=== PATIENT | male | born 1945 | race Caucasian/White ===

== ENCOUNTER 2020-05-15 06:09 | Outpatient (REF) | payer MEDICARE, BC, SELFPAY ==
[2020-05-15 06:54] LABS: MANUAL DIFF FLAG NO
[2020-05-15 07:13] LABS: Basophils Absolute Auto 0.1 X10*3/uL (0.0-0.2); Basophils Percent Auto 0.9 % (0-2); Eosinophils Absolute Auto 0.2 X10*3/uL (0.0-0.4); Hematocrit 41.8 % (42-52); Hemoglobin 13.7 g/dl (14.0-18.0); Imm Gran Abs Auto 0.02 X10*3/uL (0.00-0.03); Imm Gran Pct Auto 0.3 % (0.0-0.4); Lymphocytes Absolute Auto 1.8 X10*3/uL (1.2-4.9); Lymphocytes Percent Auto 23.2 % (20-40); Mean Corpuscular HGB Conc 32.8 g/dl (31.0-36.0); Mean Corpuscular Hemoglobin 28.8 pg (27.0-33.0); Mean Platelet Volume 10.7 fL (9.4-12.4); Monocytes Absolute Auto 0.7 X10*3/uL (0.1-1.2); Monocytes Percent Auto 9.5 % (2-11); Neutrophils Absolute Auto 4.8 X10*3/uL (2.0-8.3); Neutrophils Percent Auto 63.1 % (45-73); Platelet Count 315 X10*3/uL (160-400); Red Blood Count 4.75 X10*6/uL (4.60-5.80); Red Cell Distribution Width 12.6 % (11.0-16.0); White Blood Count 7.6 X10*3/uL (4.8-10.8)
[2020-05-15 07:24] LABS: Alanine Aminotransferase 15 U/L (0-40); Albumin Level 4.2 g/dL (3.5-5.0); Alkaline Phosphatase 114 U/L (39-117); Anion Gap 12 (12-20); Aspartate Amino Transferase 21 U/L (5-37); Bilirubin Total 0.5 mg/dL (0.0-1.0); Blood Urea Nitrogen 13 mg/dL (9-16); Carbon Dioxide 27 mmol/L (22-29); Chloride 106 mmol/L (96-108); Cholesterol 161 mg/dL; Estimated Glomerular Filt Rate > 60; Glucose Fasting 101 mg/dL (60-99); HDL Cholesterol 58 mg/dL; LDL Cholesterol Calculated 95 mg/dl; Potassium 4.3 mmol/l (3.3-5.1); Sodium 141 mmol/L (135-145); Total Protein 6.8 g/dL (6.5-8.0); Triglycerides 40 mg/dL
[2020-05-15 07:46] LABS: TSH reflex Free T4 1.77 mIU/mL (0.32-4.0)
[2020-05-15 07:49] LABS: Glucose Urine UA NEG (NEG); Leukocyte Esterase Urine NEG (NEG); Nitrite Urine NEG (NEG); PH 6.5 (5.0-8.0); Specific Gravity - Urine 1.015 (1.005-1.025); Urine Blood TRACE (NEG); Urine Ketones NEG (NEG); Urine Protein NEG (NEG-TRACE)
[2020-05-15 07:54] LABS: Appearance Urine CLEAR; Color Urine YELLOW
[2020-05-15 08:22] LABS: RBC Urine 0-2 /HPF (0); WBC Urine 0 /HPF (0-4)
== END 2020-05-15 06:10 | disposition home or self-care (01) ==
LOC: HO.LAB 06:09
PROVIDERS: PCP Internal Medicine; Visit Provider Internal Medicine
DX: E78.5 Hyperlipidemia, unspecified (principal); K52.9 Noninfective gastroenteritis and colitis, unspecified; D64.9 Anemia, unspecified; E66.3 Overweight; R31.1 Benign essential microscopic hematuria
CPT/HCPCS: 36415; 80053; 80061; 81001; 81003; 81015; 84443; 85025

== ENCOUNTER 2020-11-13 06:23 | Outpatient (REF) | payer MEDICARE, BC, SELFPAY ==
[2020-11-13 07:11] LABS: MANUAL DIFF FLAG NO
[2020-11-13 07:15] LABS: Basophils Absolute Auto 0.1 X10*3/uL (0.0-0.2); Basophils Percent Auto 1.1 % (0-2); Eosinophils Absolute Auto 0.3 X10*3/uL (0.0-0.4); Eosinophils Percent Auto 4.2 % (0-4); Hematocrit 44.5 % (42-52); Hemoglobin 14.7 g/dl (14.0-18.0); Imm Gran Abs Auto 0.02 X10*3/uL (0.00-0.03); Imm Gran Pct Auto 0.3 % (0.0-0.4); Lymphocytes Absolute Auto 2.2 X10*3/uL (1.2-4.9); Lymphocytes Percent Auto 29.6 % (20-40); Mean Corpuscular Hemoglobin 29.5 pg (27.0-33.0); Mean Corpuscular Volume 89.2 fL (80-98); Mean Platelet Volume 10.9 fL (9.4-12.4); Monocytes Absolute Auto 0.8 X10*3/uL (0.1-1.2); Monocytes Percent Auto 10.3 % (2-11); Neutrophils Absolute Auto 4.1 X10*3/uL (2.0-8.3); Neutrophils Percent Auto 54.5 % (45-73); Platelet Count 272 X10*3/uL (160-400); Red Blood Count 4.99 X10*6/uL (4.60-5.80); Red Cell Distribution Width 13.1 % (11.0-16.0); White Blood Count 7.6 X10*3/uL (4.8-10.8)
[2020-11-13 07:30] LABS: Glucose Urine UA NEG (NEG); Leukocyte Esterase Urine NEG (NEG); Nitrite Urine NEG (NEG); Specific Gravity - Urine 1.015 (1.005-1.025); Urine Blood NEG (NEG); Urine Ketones NEG (NEG); Urine Protein NEG (NEG-TRACE)
[2020-11-13 07:35] LABS: Appearance Urine CLEAR; Color Urine YELLOW
[2020-11-13 07:39] LABS: Alanine Aminotransferase 16 U/L (0-40); Albumin Level 4.5 g/dL (3.5-5.0); Alkaline Phosphatase 111 U/L (39-117); Anion Gap 16 (12-20); Aspartate Amino Transferase 23 U/L (5-37); Bilirubin Total 0.8 mg/dL (0.0-1.0); Blood Urea Nitrogen 17 mg/dL (9-16); Calcium 9.5 mg/dL (8.4-10.2); Carbon Dioxide 23 mmol/L (22-29); Chloride 107 mmol/L (96-108); Cholesterol 195 mg/dL; Estimated Glomerular Filt Rate > 60; Glucose Fasting 89 mg/dL (60-99); HDL Cholesterol 62 mg/dL; LDL Cholesterol Calculated 121 mg/dl; Potassium 4.5 mmol/L (3.3-5.1); Sodium 141 mmol/L (135-145); Total Protein 7.3 g/dL (6.5-8.0); Triglycerides 61 mg/dL
[2020-11-13 08:02] LABS: TSH reflex Free T4 1.35 uIU/mL (0.32-4.0)
== END 2020-11-13 06:24 | disposition home or self-care (01) ==
LOC: HO.LAB 06:23
PROVIDERS: PCP Internal Medicine; Visit Provider Internal Medicine
DX: R31.1 Benign essential microscopic hematuria (principal); D64.9 Anemia, unspecified; E78.00 Pure hypercholesterolemia, unspecified; M51.36 Other intervertebral disc degeneration, lumbar region; E66.3 Overweight
CPT/HCPCS: 36415; 80053; 80061; 81003; 84443; 85025

== ENCOUNTER 2021-04-25 09:34 | Emergency (ER) | payer MEDICARE, BC, OTHER, SELFPAY ==
--- NOTE | 2021-04-25 | ECG_ITS ---
Test Reason : NEURO SYMPTOMS Blood Pressure : / mmHG Vent. Rate : 071 BPM Atrial Rate : 071 BPM P-R Int : 200 ms QRS Dur : 078 ms QT Int : 390 ms P-R-T Axes : 043 -03 029 degrees QTc Int : 423 ms Normal sinus rhythm Normal ECG When compared with ECG of 03-AUG-2007 13:51, No significant change was found Referred By: Elyssa Calvo Electronically Signed By:TANK TRENT
--- NOTE | ~2021-04-25 | CT_ITS ---
EXAMINATION: CT angio head neck CLINICAL INFORMATION: Left facial droop. COMPARISON: CT scan of the head 01/05/2012. TECHNIQUE: City Attorney images were obtained. A CT angiogram of the head and neck was performed in the arterial phase after the intravenous administration of 50 mL Omnipaque 350. Pre and delayed postcontrast images of the head were also obtained. MIP reconstructions were generated in multiple orientations at the acquisition workstation. Multiple three-dimensional surface rendered images and maximum intensity projection images were generated on a dedicated 3-D lab workstation. Arterial stenoses are measured in accordance with NASCET criteria or similar method if applicable. This CT examination was performed using dose optimization techniques as appropriate, including one or more of the following: Automated exposure control, iterative reconstruction, and adjustment of technique factors (mA and/or kVp) according to patient size (this includes techniques or standardized protocols for targeted exams where dose is matched to indication/reason for exam). Total exam dose-length product 2508 mGy-cm FINDINGS: Head: There is no acute intracranial hemorrhage or abnormal extra-axial collection. Postcontrast images reveal no abnormal mass or enhancement within the intracranial compartment. No intracranial mass effect or midline shift. Lateral and third ventricles are normal. No hydrocephalus. There are a few scattered nonspecific foci of hypoattenuation within the periventricular white matter. Nova-white matter differentiation is preserved and there is no evidence of acute territorial infarct.. The calvarium and skull base are intact. Mastoid air cells and middle ear cavities are well aerated. No active paranasal sinus disease. Of note there are chronic changes of an old healed right lamina papyracea fracture. CT angiogram neck: Scattered atheromatous calcification involves the aortic arch apex. Origins of the major aortic branches are patent. Common carotid arteries are normal. A small amount of partially calcified atheromatous plaque involves both carotid bifurcations. No stenosis of the extracranial internal carotid arteries. The cervical segments of the vertebral arteries as well as their origins are patent. CT angiogram head: Intracranial internal carotid arteries are patent. The intradural vertebral artery segments and basilar artery are patent. Anterior, middle, and posterior cerebral artery complexes are normal. No intracranial large vessel occlusion. Other: There is heterogeneous enhancement of the thyroid gland which is otherwise normal. No identifiable enhancing soft tissue mass within the neck. No pathologically enlarged cervical lymph nodes. There is no acute osseous finding. There is multilevel degenerative spondylosis of the cervical spine. Grossly no evidence of canal compromise. No worrisome lytic or blastic osseous lesion. CT/CT angio head neck IMPRESSION: Unremarkable CT angiogram of the head and neck. Specifically there is no stenosis of the cervical carotid or vertebral arteries. No intracranial large vessel occlusion. No evidence of acute territorial infarct or hemorrhage. No abnormal intracranial mass or enhancement. This critical result was discussed with Elyssa Calvo at 11:46 AM on 04/25/2021 and it was ascertained that the content and urgency of the report was understood at the time of direct communication.
--- NOTE | ~2021-04-25 | MR_ITS ---
EXAMINATION: MR BRAIN WITHOUT CONTRAST CLINICAL INFORMATION: Left-sided facial droop. COMPARISON: CT angiogram of the head and neck 04/25/2021. TECHNIQUE: Multiplanar MR imaging of the brain was performed without contrast. FINDINGS: There are scattered nonspecific foci of T2 FLAIR signal hyperintensity within the periventricular white matter. No acute territorial infarct. No pathological magnetic susceptibility artifact. Intracranial vascular flow voids are grossly maintained. There is no intracranial mass effect or midline shift. No abnormal extra-axial collection. Lateral and third ventricles are proportionate to the subarachnoid spaces. No hydrocephalus. Midline structures including the cervicomedullary junction are normal. No acute bone marrow signal changes. There is no mastoid or middle ear effusion. Mild paranasal sinus mucosal thickening within ethmoid air cells. Globes and orbits are symmetric. MR/MR head/brain wo con IMPRESSION: There are scattered chronic small vessel ischemic changes within the periventricular white matter. Otherwise unremarkable examination. No evidence of acute territorial infarct or hemorrhage.
[2021-04-25 09:43] VITALS: BP 165/80; PULSE 82; RESP 18; TEMP 37; O2SAT 98; BMI 25.9
--- NOTE | 2021-04-25 09:54 | ED_ITS ---
HPI - Neuro Symptoms/Deficit General Chief Complaint: Neuro Symptoms/Deficit Stated Complaint: FACIAL NUMBNESS Time Seen by Provider: 04/25/21 09:51 Source: patient Mode of arrival: ambulatory Limitations: no limitations History of Present Illness HPI Narrative: 75 yo male with hx of anemia, HLD here with c/o R sided lip numbness starting yesterday 04/24 at 1am. He was last known normal at 230am today when he woke up he noted the L side of his face was drooping and he could not close his eyes, he woke up at [address]. He was told by his PCP yesterday that if he had worsening of symptoms he should seek out attention in the ED. Denies hx of shingles, lyme disease, cold sores. Onset (ago): unknown (last known normal 230am when he went to urinate) Timing confirmed by: other (self) Location: left face History of same: No Severity: moderate Quality: weak Relieving factors: none Exacerbating factors: none Context: gradual onset On Anticoagulants: No Associated symptoms: other (R lip and R lower face numbness) Treatments Prior to Arrival: other (saw PCP yesterday for R sided symptoms) Related Data Home Medications Medication Instructions Recorded Confirmed latanoprost 0.005 % eye drops 1 drp OPHTHALMIC (EYE) DAILY 05/21/20 04/25/21 (Xalatan) omega-3 fatty acids 1,000 mg 1,000 mg PO DAILY 05/21/20 04/25/21 capsule (Fish Oil Concentrate) ascorbic acid (vitamin C) 1,000 mg 1 g PO DAILY tab 11/19/20 04/25/21 tablet cholecalciferol (vitamin D3) 25 25 mcg PO .every other day cap 11/19/20 04/25/21 mcg (1,000 unit) capsule multivitamin 1 tab PO DAILY 11/19/20 04/25/21 Previous Rx's Medication Instructions Recorded atorvastatin 40 mg tablet 40 mg PO DAILY #90 tab 09/20/20 doxycycline hyclate 100 mg capsule 100 mg PO BID 7 Days #14 cap 04/25/21 prednisone 20 mg tablet 40 mg PO DAILY 5 Days #10 tab 04/25/21 valacyclovir 1 gram tablet 1,000 mg PO TID 7 Days #21 tab 04/25/21 Allergies Allergy/AdvReac Type Severity Reaction Status Date / Time No Known Allergies Allergy Mild NKA Verified 04/25/21 09:42 Review of Systems Review of Systems: Constitutional : No Fever, No Chills, No Fatigue, No Malaise ENT/Mouth : No sore throat, No Rhinorrhea Eyes: No Eye Pain, No Swelling, No Redness Cardiovascular : No Chest Pain, No SOB, No Dyspnea on Exertion, No Orthopnea, No Edema, No Palpitations Respiratory : No Cough, No Sputum, No Wheezing Gastrointestinal : No Nausea, No Vomiting, No Diarrhea, No Constipation, No abdominal Pain, No Hematochezia, No Melena Genitourinary : No Dysuria, No Urinary Frequency, No Hematuria, Musculoskeletal : No joint pain, No Myalgias, No Joint Swelling Skin : No Skin Lesions, No rash Neuro : pos Weakness, pos Numbness, No Dizziness, No Headache Psych : No Anxiety/Panic, No Depression Heme/Lymph: No Bruising, No Bleeding,No Lymphadenopathy Endocrine : No Polyuria, No Polydipsia All other systems reviewed and are negative [facility] Past Medical History Attestation statement: The following information was validated with the patient. Medical History Anemia Benign essential microscopic hematuria Glaucoma Lumbar degenerative disc disease Overweight (BMI 25.0-29.9) Pure hypercholesterolemia Surgical History History of colonoscopy History of hemicolectomy History of inguinal hernia repair History of tonsillectomy and adenoidectomy Hx of basal cell carcinoma excision (~2020) Family History Family History Father CVD (cardiovascular disease) Mother CVD (cardiovascular disease) Social History Social History Alcohol intake: never Patient Tobacco Use Status: Former Tobacco user Use of substances other than those prescribed or required for medical reasons: No Advance Directives: Yes Advance Directives Information Provided: Yes Advance Directives on File: No Physical Exam Vital Signs: Vital Signs: Last Vital Signs Temp 97.9 F 04/25/21 13:33 Pulse 73 04/25/21 13:33 Resp 14 04/25/21 13:33 BP 138/67 04/25/21 13:33 Pulse Ox 96 04/25/21 13:33 Body Mass Index 25.9 Appearance: Alert. Oriented X3. No acute distress. Eyes: Pupils equal, round and reactive to light. ENT: Pharynx normal. L TM normal Neck: Normal inspection. Neck supple. CVS: Normal heart rate and rhythm. Pulses normal. Respiratory: No respiratory distress. Breath sounds normal. Abdomen: Soft and nontender. Skin: Skin warm and dry. Normal skin color. Normal skin turgor. Extremities: No lower extremity edema. No calf ttp Neuro: Oriented X 3. No sensory deficit. normal gait, no drift. L sided facial droop involving the eyebrow and forehead unable to close eye, otherwise motor intact Course Course Course Narrative: MRI ordered to definitively establish this is bells palsy and not stroke negative MRI for acute stroke MDM - Neuro Symptoms/Deficit MDM Narrative Medical decision making narrative: 75 yo male with HLD had onset of R facial numbness yesterday then woke up around 8 am with almost complete paralysis of L face - also involving the forehead/eyebrow. Last known well at 230am. Denies risk factors for bells palsy. At this time it seems most likely this is a peripheral lesion but given age CT head/CTA ordered. He is out of the window for tPa given last known well was over 8 hours ago and he cannot say when he noted symptoms. He and his are aware of the plan as well as not being a candidate for tPa if this is a stroke Lab Data Result diagrams: 04/25/21 10:04/25/21 10:07 Labs: Lab Results 04/25/21 04/25/21 Range/Units 10:07 10:07 WBC 11.2 H (4.8-10.8) X10*3/uL RBC 4.74 (4.60-5.80) X10*6/uL Hgb 14.1 (14.0-18.0) g/dl Hct 41.7 L (42-52) % MCV 88.0 (80-98) fL MCH 29.7 (27.0-33.0) pg MCHC 33.8 (31.0-36.0) g/dl RDW 12.7 (11.0-16.0) % Plt Count 297 (160-400) X10*3/uL MPV 10.6 (9.4-12.4) fL Immature Gran % (Auto) 0.3 (0.0-0.4) % Neut % (Auto) 77.3 H (45-73) % Lymph % (Auto) 13.6 L (20-40) % [place] % (Auto) 7.2 (2-11) % Eos % (Auto) 1.0 (0-4) % Baso % (Auto) 0.6 (0-2) % Lymph # (Auto) 1.5 (1.2-4.9) X10*3/uL [place] # (Auto) 0.8 (0.1-1.2) X10*3/uL Eos # (Auto) 0.1 (0.0-0.4) X10*3/uL Baso # (Auto) 0.1 (0.0-0.2) X10*3/uL Abs Immat Gran (auto) 0.03 (0.00-0.03) X10*3/uL Absolute Neuts (auto) 8.7 H (2.0-8.3) X10*3/uL Absolute Nucleated RBC 0.000 (0.0-0.012) X10*3/uL Nucleated RBC % (auto) 0.0 (0.0-0.2) /100WBC Sodium 140 (135-145) mmol/L Potassium 4.4 (3.3-5.1) mmol/L Chloride 108 (96-108) mmol/L Carbon Dioxide 22 (22-29) mmol/L Anion Gap 14 (12-20) BUN 13 (9-16) mg/dL Creatinine 1.07 (0.5-1.4) mg/dL Estim Creat Clear Calc 60.5 Estimated GFR > 60 Random Glucose 143 H (60-115) mg/dL Calcium 9.2 (8.4-10.2) mg/dL Total Bilirubin 0.6 (0.0-1.0) mg/dL AST 23 (5-37) U/L ALT 15 (0-40) U/L Alkaline Phosphatase 122 H (39-117) U/L Total Protein 7.1 (6.5-8.0) g/dL Albumin 4.1 (3.5-5.0) g/dL ECG Data Attestation: I personally reviewed and interpreted this ECG as follows: ECG interpretation date: 04/25/21 ECG interpretation time: 10:40 Interpretation: Rate: 71 Rhythm: NSR [place]: normal Normal P waves. Normal RICARDA. Normal QRS complex. ST T wave : normal no RACHAEL qTC: normal prior studies: no acute ischemia The study has been interpreted contemporaneously by me. . NIH Stroke Scale Internal: Initial- Upon Arrival Level of Consciousness: Alert Level of Consciousness Questions: Answers both questions correctly Level of Consciousness Commands: Performs both tasks correctly Best Gaze: Normal Visual: No visual loss Facial Palsy: Partial paralysis Motor Arm (Right): No drift Motor Arm (Left): No drift Motor Leg (Right): No drift Motor Leg (Left): No drift Limb Ataxia: Absent Sensory: Normal Best Language: No aphasia Dysarthia: Normal Extinction and Inattention: No abnormality Score: 2 Discharge Plan Discharge Clinical Impression: Gruber's palsy Patient Disposition: Home, Self-Care Instructions: Gruber Palsy (ED) Additional Instructions: return to ED for any worsening symptoms or concerns protect your eye - use lubricating drops you may need to tape it at field court researcher while chewing we will call you if your lyme test is positive Prescriptions: New prednisone 20 mg tablet 40 mg PO DAILY 5 Days Qty: 10 RF: 0 valacyclovir 1 gram tablet 1,000 mg PO TID 7 Days Qty: 21 RF: 0 doxycycline hyclate 100 mg capsule 100 mg PO BID 7 Days Qty: 14 RF: 0 No Action atorvastatin 40 mg tablet 40 mg PO DAILY Qty: 90 RF: 3 omega-3 fatty acids [Fish Oil Concentrate] 1,000 mg capsule 1,000 mg PO DAILY RF: 0 latanoprost [Xalatan] 0.005 % drops 1 drp ophthalmic (eye) DAILY RF: 0 multivitamin Tablet 1 tab PO DAILY RF: 0 ascorbic acid (vitamin C) 1,000 mg tablet 1 g PO DAILY RF: 0 cholecalciferol (vitamin D3) 25 mcg (1,000 unit) capsule 25 mcg PO .every other day RF: 0 Referrals: Too Mcgee MD [Primary Care Provider] - 1 week
[2021-04-25 10:13] LABS: MANUAL DIFF FLAG NO
[2021-04-25 10:15] LABS: Basophils Absolute Auto 0.1 X10*3/uL (0.0-0.2); Basophils Percent Auto 0.6 % (0-2); Eosinophils Absolute Auto 0.1 X10*3/uL (0.0-0.4); Hematocrit 41.7 % (42-52); Hemoglobin 14.1 g/dl (14.0-18.0); Imm Gran Abs Auto 0.03 X10*3/uL (0.00-0.03); Imm Gran Pct Auto 0.3 % (0.0-0.4); Lymphocytes Absolute Auto 1.5 X10*3/uL (1.2-4.9); Lymphocytes Percent Auto 13.6 % (20-40); Mean Corpuscular HGB Conc 33.8 g/dl (31.0-36.0); Mean Corpuscular Hemoglobin 29.7 pg (27.0-33.0); Mean Platelet Volume 10.6 fL (9.4-12.4); Monocytes Absolute Auto 0.8 X10*3/uL (0.1-1.2); Monocytes Percent Auto 7.2 % (2-11); Neutrophils Absolute Auto 8.7 X10*3/uL (2.0-8.3); Neutrophils Percent Auto 77.3 % (45-73); Platelet Count 297 X10*3/uL (160-400); Red Blood Count 4.74 X10*6/uL (4.60-5.80); Red Cell Distribution Width 12.7 % (11.0-16.0); White Blood Count 11.2 X10*3/uL (4.8-10.8)
[2021-04-25 10:33] LABS: Alanine Aminotransferase 15 U/L (0-40); Albumin Level 4.1 g/dL (3.5-5.0); Alkaline Phosphatase 122 U/L (39-117); Anion Gap 14 (12-20); Aspartate Amino Transferase 23 U/L (5-37); Bilirubin Total 0.6 mg/dL (0.0-1.0); Blood Urea Nitrogen 13 mg/dL (9-16); Calcium 9.2 mg/dL (8.4-10.2); Carbon Dioxide 22 mmol/L (22-29); Chloride 108 mmol/L (96-108); Creatinine Clr Calc Pharmacy 60.5; Estimated Glomerular Filt Rate > 60; Glucose Random 143 mg/dL (60-115); Potassium 4.4 mmol/L (3.3-5.1); Sodium 140 mmol/L (135-145); Total Protein 7.1 g/dL (6.5-8.0)
[2021-04-25] MEDS: iohexoL 350 MG/ML 100 ML INFUS..BTL IV (11:30)
[2021-04-25 12:08] VITALS: BP 132/91; PULSE 72; RESP 16; O2SAT 98
[2021-04-25 13:33] VITALS: BP 138/67; PULSE 73; RESP 14; TEMP 36.6; O2SAT 96
[2021-04-26 12:56] LABS: Lyme Abs Screen <0.90 index
== END 2021-04-25 14:01 | disposition home or self-care (01) ==
PROVIDERS: Emergency Provider Emergency Medicine; PCP Internal Medicine
DX: G51.0 Bell's palsy (principal)
CPT/HCPCS: 36415; 70496; 70498; 70551; 80053; 85025; 86617; 86618; 93005; 99284; 99285; Q9967

== ENCOUNTER 2021-06-12 12:26 | Outpatient (REF) | payer MEDICARE, BC, OTHER, SELFPAY | END 2021-06-12 12:27 | disposition home or self-care (01) | LOC: HO.LAB 12:26 | PROVIDERS: Visit Provider Family Medicine | DX: L02.91 Cutaneous abscess, unspecified (principal) | CPT/HCPCS: 87071; 87205 ==

== ENCOUNTER 2021-06-18 06:06 | Outpatient (REF) | payer MEDICARE, BC, OTHER, SELFPAY ==
[2021-06-18 06:19] LABS: MANUAL DIFF FLAG NO
[2021-06-18 07:22] LABS: Basophils Absolute Auto 0.1 X10*3/uL (0.0-0.2); Basophils Percent Auto 1.2 % (0-2); Eosinophils Absolute Auto 0.3 X10*3/uL (0.0-0.4); Eosinophils Percent Auto 3.4 % (0-4); Hematocrit 40.3 % (42.0-52.0); Hemoglobin 13.1 g/dl (14.0-18.0); Imm Gran Abs Auto 0.02 X10*3/uL (0.00-0.03); Imm Gran Pct Auto 0.3 % (0.0-0.4); Lymphocytes Absolute Auto 1.8 X10*3/uL (1.2-4.9); Lymphocytes Percent Auto 25.3 % (20-40); Mean Corpuscular HGB Conc 32.5 g/dl (31.0-36.0); Mean Corpuscular Hemoglobin 29.4 pg (27.0-33.0); Mean Corpuscular Volume 90.6 fL (80.0-98.0); Mean Platelet Volume 10.3 fL (9.4-12.4); Monocytes Absolute Auto 0.6 X10*3/uL (0.1-1.2); Monocytes Percent Auto 8.5 % (2-11); Neutrophils Absolute Auto 4.5 x10*3/uL (2.0-8.3); Neutrophils Percent Auto 61.3 % (45-73); Platelet Count 348 X10*3/uL (160-400); Red Blood Count 4.45 X10*6/uL (4.60-5.80); Red Cell Distribution Width 13.2 % (11.0-16.0); White Blood Count 7.3 X10*3/uL (4.8-10.8)
[2021-06-18 07:30] LABS: Appearance Urine CLEAR; Color Urine YELLOW; Glucose Urine UA NEG (NEG); Leukocyte Esterase Urine NEG (NEG); Nitrite Urine NEG (NEG); Urine Blood NEG (NEG); Urine Ketones NEG (NEG); Urine Protein NEG (NEG-TRACE)
[2021-06-18 07:53] LABS: Alanine Aminotransferase 24 U/L (0-40); Albumin Level 4.1 g/dL (3.5-5.0); Alkaline Phosphatase 105 U/L (39-117); Anion Gap 14 (12-20); Aspartate Amino Transferase 29 U/L (5-37); Bilirubin Total 0.4 mg/dL (0.0-1.0); Blood Urea Nitrogen 17 mg/dL (9-16); Calcium 9.4 mg/dL (8.4-10.2); Carbon Dioxide 24 mmol/L (22-29); Chloride 106 mmol/L (96-108); Cholesterol 169 mg/dL; Estimated Glomerular Filt Rate 58; Glucose Fasting 85 mg/dL (60-99); HDL Cholesterol 50 mg/dL; LDL Cholesterol Calculated 107 mg/dl; Potassium 4.6 mmol/L (3.3-5.1); Sodium 139 mmol/L (135-145); Total Protein 6.8 g/dL (6.5-8.0); Triglycerides 60 mg/dL
[2021-06-18 08:15] LABS: TSH reflex Free T4 1.32 uIU/mL (0.32-4.0)
== END 2021-06-18 06:07 | disposition home or self-care (01) ==
LOC: HO.LAB 06:06
PROVIDERS: PCP Internal Medicine; Visit Provider Internal Medicine
DX: D64.9 Anemia, unspecified (principal); R31.1 Benign essential microscopic hematuria; E78.00 Pure hypercholesterolemia, unspecified; E55.9 Vitamin D deficiency, unspecified
CPT/HCPCS: 36415; 80053; 80061; 81003; 82306; 84443; 85025

== ENCOUNTER → 2021-07-11 10:46 | Outpatient (BNVA) | payer MEDICARE, BC, SELFPAY | PROVIDERS: PCP Internal Medicine; Referring Provider Internal Medicine; Visit Provider Surgery | DX: Z48.817 Encounter for surgical aftercare following surgery on the skin and subcutaneous tissue (principal); Z87.2 Personal history of diseases of the skin and subcutaneous tissue | CPT/HCPCS: 99202 ==

== ENCOUNTER 2021-11-15 06:24 | Outpatient (REF) | payer MEDICARE, BC, SELFPAY ==
[2021-11-15 06:34] LABS: MANUAL DIFF FLAG NO
[2021-11-15 07:25] LABS: Appearance Urine CLEAR; Color Urine YELLOW; Glucose Urine UA NEG (NEG); Leukocyte Esterase Urine NEG (NEG); Nitrite Urine NEG (NEG); Specific Gravity - Urine 1.015 (1.005-1.025); UACC Culture Trigger NO; Urine Blood TRACE (NEG); Urine Ketones NEG (NEG); Urine Protein NEG (NEG-TRACE)
[2021-11-15 07:33] LABS: Mucus Urine TRACE /LPF; Squamous Epithelial Cell Urine TRACE /LPF; WBC Urine 0-2 /HPF (0-4)
[2021-11-15 07:34] LABS: RBC Urine 0-2 /HPF (0)
[2021-11-15 07:34] LABS: Basophils Absolute Auto 0.1 X10*3/uL (0.0-0.2); Basophils Percent Auto 1.1 % (0-2); Eosinophils Absolute Auto 0.2 X10*3/uL (0.0-0.4); Eosinophils Percent Auto 2.9 % (0-4); Hematocrit 41.4 % (42.0-52.0); Imm Gran Abs Auto 0.03 X10*3/uL (0.00-0.03); Imm Gran Pct Auto 0.4 % (0.0-0.4); Lymphocytes Percent Auto 24.8 % (20-40); Mean Corpuscular HGB Conc 33.8 g/dl (31.0-36.0); Mean Corpuscular Hemoglobin 29.9 pg (27.0-33.0); Mean Corpuscular Volume 88.3 fL (80.0-98.0); Mean Platelet Volume 10.8 fL (9.4-12.4); Monocytes Absolute Auto 0.8 X10*3/uL (0.1-1.2); Monocytes Percent Auto 9.3 % (2-11); Neutrophils Percent Auto 61.5 % (45-73); Platelet Count 306 X10*3/uL (160-400); Red Blood Count 4.69 X10*6/uL (4.60-5.80); Red Cell Distribution Width 12.6 % (11.0-16.0); White Blood Count 8.1 X10*3/uL (4.8-10.8)
[2021-11-15 07:51] LABS: Alanine Aminotransferase 14 U/L (0-40); Albumin Level 4.2 g/dL (3.5-5.0); Alkaline Phosphatase 108 U/L (39-117); Anion Gap 13 (12-20); Aspartate Amino Transferase 21 U/L (5-37); Bilirubin Total 0.6 mg/dL (0.0-1.0); Blood Urea Nitrogen 17 mg/dL (9-16); Calcium 9.6 mg/dL (8.4-10.2); Carbon Dioxide 27 mmol/L (22-29); Chloride 105 mmol/L (96-108); Cholesterol 190 mg/dL; Estimated Glomerular Filt Rate > 60; Glucose Fasting 88 mg/dL (60-99); HDL Cholesterol 55 mg/dL; LDL Cholesterol Calculated 124 mg/dl; Potassium 4.8 mmol/L (3.3-5.1); Sodium 140 mmol/L (135-145); Triglycerides 58 mg/dL
[2021-11-15 08:10] LABS: TSH reflex Free T4 1.54 uIU/mL (0.32-4.0); Vitamin D 25-OH Total 50.5 ng/mL (>30)
== END 2021-11-15 06:25 | disposition home or self-care (01) ==
LOC: HO.LAB 06:24
PROVIDERS: PCP Internal Medicine; Visit Provider Internal Medicine
DX: I10 Essential (primary) hypertension (principal); E55.9 Vitamin D deficiency, unspecified; E78.00 Pure hypercholesterolemia, unspecified
CPT/HCPCS: 36415; 80053; 80061; 81001; 82306; 84443; 85025

== ENCOUNTER 2022-05-09 06:41 | Outpatient (REF) | payer MEDICARE, BC, SELFPAY ==
[2022-05-09 06:45] LABS: MANUAL DIFF FLAG NO
[2022-05-09 07:27] LABS: Urine Cytology See Pathology rpt
[2022-05-09 07:44] LABS: Basophils Absolute Auto 0.1 X10*3/uL (0.0-0.2); Basophils Percent Auto 1.2 % (0-2); Eosinophils Absolute Auto 0.2 X10*3/uL (0.0-0.4); Eosinophils Percent Auto 3.2 % (0-4); Hematocrit 43.1 % (42.0-52.0); Hemoglobin 14.3 g/dl (14.0-18.0); Imm Gran Abs Auto 0.02 X10*3/uL (0.00-0.03); Imm Gran Pct Auto 0.3 % (0.0-0.4); Lymphocytes Absolute Auto 2.1 X10*3/uL (1.2-4.9); Lymphocytes Percent Auto 28.6 % (20-40); Mean Corpuscular HGB Conc 33.2 g/dl (31.0-36.0); Mean Corpuscular Hemoglobin 29.2 pg (27.0-33.0); Mean Corpuscular Volume 88.1 fL (80.0-98.0); Mean Platelet Volume 10.6 fL (9.4-12.4); Monocytes Absolute Auto 0.7 X10*3/uL (0.1-1.2); Monocytes Percent Auto 9.5 % (2-11); Neutrophils Absolute Auto 4.3 x10*3/uL (2.0-8.3); Neutrophils Percent Auto 57.2 % (45-73); Platelet Count 302 X10*3/uL (160-400); Red Blood Count 4.89 X10*6/uL (4.60-5.80); Red Cell Distribution Width 12.8 % (11.0-16.0); White Blood Count 7.5 X10*3/uL (4.8-10.8)
[2022-05-09 08:13] LABS: Alanine Aminotransferase 19 U/L (0-40); Albumin Level 4.3 g/dL (3.5-5.0); Alkaline Phosphatase 104 U/L (39-117); Anion Gap 15 (12-20); Aspartate Amino Transferase 26 U/L (5-37); Bilirubin Total 0.6 mg/dL (0.0-1.0); Blood Urea Nitrogen 15 mg/dL (9-16); Calcium 9.6 mg/dL (8.4-10.2); Carbon Dioxide 26 mmol/L (22-29); Chloride 104 mmol/L (96-108); Cholesterol 191 mg/dL; Estimated Glomerular Filt Rate > 60; Glucose Fasting 90 mg/dL (60-99); HDL Cholesterol 58 mg/dL; LDL Cholesterol Calculated 120 mg/dl; Potassium 4.8 mmol/L (3.3-5.1); Sodium 140 mmol/L (135-145); Triglycerides 66 mg/dL
[2022-05-09 08:36] LABS: TSH reflex Free T4 1.85 uIU/mL (0.32-4.0); Vitamin D 25-OH Total 52.5 ng/mL (>30)
== END 2022-05-09 06:42 | disposition home or self-care (01) ==
LOC: HO.LAB 06:41
PROVIDERS: PCP Internal Medicine; Visit Provider Internal Medicine
DX: E78.00 Pure hypercholesterolemia, unspecified (principal); E55.9 Vitamin D deficiency, unspecified; R31.1 Benign essential microscopic hematuria; D64.9 Anemia, unspecified
CPT/HCPCS: 36415; 80053; 80061; 82306; 84443; 85025; 88112

== ENCOUNTER → 2022-06-26 13:03 | Outpatient (BNVA) | payer MEDICARE, BC, SELFPAY | PROVIDERS: PCP Internal Medicine; Visit Provider Surgery | DX: K40.90 Unilateral inguinal hernia, without obstruction or gangrene, not specified as recurrent (principal) | CPT/HCPCS: 99212 ==

== ENCOUNTER 2022-07-16 05:59 | Day surgery (SDC) | payer MEDICARE, BC, SELFPAY ==
[2022-07-09 13:04] VITALS: BMI 25.4
[2022-07-16] VITALS (7 sets, daily range): BP systolic 122–162; BP diastolic 66–92; PULSE 60–75; RESP 16–20; TEMP 36.3–36.6; O2SAT 98–100
[2022-07-16] MEDS: Lactated Ringers 1,000 ML 100 ML IVCONT (06:32)
--- NOTE | 2022-07-16 07:16 | P.CONAN_ITS ---
[facility] Active Problems Active Problems: All Active Problems (Updated 06/26/22 @ 14:41 by Zelalem Ramirez MD) Encounter for Medicare annual wellness exam (Acute) Right facial numbness (Acute) Left-sided Gruber's palsy (Acute) Carbuncle (Acute) Abscess of buttock, right (Acute) Scar tissue (Acute) Sore throat (viral) (Acute) Mass of right inguinal region (Acute) Right inguinal hernia (Acute) Constipation (Acute) Overweight (BMI 25.0-29.9) (Acute) Glaucoma (Acute) Benign essential microscopic hematuria (Acute) Lumbar degenerative disc disease (Acute) Anemia (Acute) Pure hypercholesterolemia (Acute) Past Medical History Medical History (Updated 06/26/22 @ 14:41 by Zelalem Ramirez MD) Anemia Benign essential microscopic hematuria Constipation Glaucoma Lumbar degenerative disc disease Overweight (BMI 25.0-29.9) Pure hypercholesterolemia Family History Family History Father CVD (cardiovascular disease) Mother CVD (cardiovascular disease) Surgical History Surgical History (Updated 07/09/22 @ 13:04 by Nkechi Del Toro RN) History of colonoscopy History of hemicolectomy History of inguinal hernia repair History of tonsillectomy and adenoidectomy Hx of basal cell carcinoma excision (~2020) History of Problems with Anesthesia: No Social History Social History Housing: House Are you a primary career development coordinator/teacher to a significant other at home: No Do you presently have visiting nurse or other home services: No Alcohol intake: current Alcohol intake frequency: 0-2 drinks per day Alcohol type: beer and wine Patient Tobacco Use Status: Former Tobacco user Quit Date: age 41 Tobacco use type: Cigarette Years Smoked: 15 e-Cigarette/Vaping Use: Never Used Second Hand Smoke Exposure: Yes Use of substances other than those prescribed or required for medical reasons: No Have you been hit, kicked, punched, or otherwise hurt by someone within the past year? If so, by whom?: No Advance Directives: No Advance Directives Information Provided: Yes (as above noted-will bring copies HCP & DNR/MOLST day of surgery) Advance Directives on File: No Recently lost weight without trying: No Eating poorly because of decreased appetite: No Nutrition Risks: Surgical patient >75years Poor oral hygiene: No service: Yes Current occupational status: retired Cognitive needs: No Hearing needs: No Vision needs: Yes (Reading glasses) Meds Allergies Allergy/AdvReac Type Severity Reaction Status Date / Time No Known Allergies Allergy Mild NKA Verified 06/26/22 13:13 Active Medications: Current Medications Albuterol Sulfate (Albuterol Sulfate (0.083%) 2.5 Mg/3 Ml Vial.Neb) 2.5 mg INHALE ONCE PRN PRN Reason: Shortness of Breath/Wheezing Lactated Ringer's (Lr) 1,000 mls @ 100 mls/hr IVCONT .Q10H JB Last Admin: 07/16/22 06:32 Dose: 100 mls/hr Home Medications Medication Instructions Recorded Confirmed Last Taken Type latanoprost 0.005 % eye drops 1 drp ophthalmic (eye) BEDTIME 05/21/20 07/09/22 07/15/22 History (Xalatan) omega-3 fatty acids 1,000 mg 1,000 mg PO DAILY 05/21/20 07/09/22 07/15/22 History capsule (Fish Oil Concentrate) ascorbic acid (vitamin C) 1,000 mg 1 g PO DAILY 11/19/20 07/09/22 07/15/22 History tablet cholecalciferol (vitamin D3) 25 25 mcg PO .every other day 11/19/20 07/09/22 07/15/22 History mcg (1,000 unit) capsule multivitamin 1 tab PO DAILY 11/19/20 07/09/22 07/15/22 History Exam Exam Date and Time: July 16, 2022 0716 Height,Weight and Vital Signs: Height 5 ft 8 in Weight 75.75 kg Last Vital Signs Temp 98 F 07/16/22 06:15 Pulse 73 07/16/22 06:15 Resp 20 07/16/22 06:15 BP 162/92 H 07/16/22 06:15 Pulse Ox 98 07/16/22 06:15 O2 Del Method 07/16/22 06:15 Airway Mallampati Class: II TM Dist: >3cm Neck ROM: Full Loose/Missing/Broken Teeth: No Heart: rrr Lungs: clear Assessment and Plan Final Anesthetic Review History of Problems with Anesthesia: No NPO: Yes ASA Class: II Final Preanesthetic Review: No Changes in Pt Med Stat, Meds/Allgs Chart Reviewed, Consent Obtained/Reviewed and Anes Risks/Benef Reviewed Patient Risk: Intermediate Procedure Risk: Low Anesthetic Plan Anesthetic Plan: GA Disposition: Standard PACU
--- NOTE | 2022-07-16 07:37 | MHC.SHP ---
Pre-Procedural Eval Section A Date of Service: 07/16/22 The patient is an INPATIENT: No Changes since office visit: Yes Patient answered all questions; No Cold of Flu in the past 2 weeks, No New Medical Problems and No Changes in Medication The History & Physical has been completed within 30 days and I have reviewed it.: Yes Section B Chief Complaint: Unilateral inguinal hernia, without obstruction or Allergies: Allergies Allergy/AdvReac Type Severity Reaction Status Date / Time No Known Allergies Allergy Mild NKA Verified 06/26/22 13:13 Plan Diagnosis/Plan: Unchanged I have reviewed the history and physical and performed a pertinent physical examination on my patient. No changes have occurred unless specified. Time Spent With Patient Time: Total time managing care of this patient today ___5_ minutes.
--- NOTE | 2022-07-16 08:34 | P.OP_ITS ---
Operative Note Operative Note Date of Service: 07/16/22 Narrative: Preoperative diagnosis: right inguinal hernia Postoperative diagnosis: same Procedure: repair of right inguinal hernia with mesh Surgeon: Zelalem Ramierz MD Director Community Health Nursing: Radha Garcia PA-C Anesthesia: general LMA Indications for procedure: 76-year-old male patient presenting with a palpable lump in the right groin which increases with the standing position and reduces the supine position. Operative findings: Indirect right inguinal hernia Specimen: hernia sac and lipoma of cord Estimated blood loss: less than 2 mL Complications: none Procedure details: patient was brought to the OR and placed in a supine position. After administering general anesthesia the patient's abdomen was prepped with ChloraPrep and draped in a sterile fashion. A surgical time-out was called the consent confirmed. Patient received preoperative antibiotics and Venodyne boots were in place. Local anesthesia consisting of 0.5% Sensorcaine with epinephrine was then infiltrated over the right inguinal ligament. Inci shannan was then made with a scalpel carried out through subcutaneous tissue, past Rip's fashion up to the external oblique aponeurosis. Additional local was infiltrated below the aponeurosis. This was then incised in the direction of the fiber in opened further with the Metzenbaum scissors. Spermatic cord was then dissected free from the surrounding inguinal canal. This was then retracted with a Afua drain. An indirect hernia was identified immediately. The sac was dissected free from the surrounding cord contents up to the internal ring. The sac was then entered and contents reduced. The sac was then ligated with a 0 Polysorb suture and excised. This was sent as a specimen. An adjacent lipoma was also excised and sent as a specimen. The preperitoneal space was then further defined through the internal ring with blunt dissection using a Ray-Marycruz sponge. A large extended PHS mesh was then obtained. The circular underlay was then deployed within the preperitoneal space. The overlay was then secured to the pubic tubercle, conjoined tendon, and shelving edge of the inguinal ligament using a 0 Polysorb suture. A slit was made in the mesh the mesh wrapped spermatic cord at the internal ring. This was then secured to the shelving edge of the inguinal ligament. Wounds were then irrigated with saline solution and suctioned dry. The external oblique aponeurosis was then closed using a running 2 0 Polysorb suture. 6 mL of Zenrelef was then infiltrated over the mesh. Rip's fascia was then reapproximated using interrupted 3-0 Polysorb sutures. Dermis was reapproximated using interrupted 3-0 Polysorb sutures. Skin was then closed using a running subcuticular 4-0 Polysorb suture. Steri-Strips, 2 x 2 gauze and Tegaderm were then applied. The patient tolerated the procedure well. Sponge, instrument, and needle counts reported as correct. Patient was transferred to PACU in stable condition.
[2022-07-16] MEDS: Acetaminophen 325 MG TABLET 650 MG PO (09:33)
== END 2022-07-16 10:03 | disposition home or self-care (01) ==
PROVIDERS: PCP Internal Medicine; Visit Provider Surgery
PROC: (CPT 49505; principal; 2022-07-16 07:30)
DX: K40.90 Unilateral inguinal hernia, without obstruction or gangrene, not specified as recurrent (principal); D17.6 Benign lipomatous neoplasm of spermatic cord; D64.9 Anemia, unspecified; R31.29 Other microscopic hematuria; E78.00 Pure hypercholesterolemia, unspecified; H40.9 Unspecified glaucoma; E66.3 Overweight; Z68.25 Body mass index [BMI] 25.0-25.9, adult; Z79.899 Other long term (current) drug therapy; Z87.891 Personal history of nicotine dependence
CPT/HCPCS: 49505; 88302; 88304; C1781; C9088; J0690; J1100; J2250; J2370; J2405; J3010

== ENCOUNTER → 2022-07-24 09:39 | Outpatient (BNVA) | payer MEDICARE, BC, SELFPAY | PROVIDERS: PCP Internal Medicine; Visit Provider Surgery | DX: Z13.89 Encounter for screening for other disorder (principal) | CPT/HCPCS: 99212 ==

== ENCOUNTER → 2022-08-22 10:45 | Outpatient (BNVA) | payer MEDICARE, BC, SELFPAY | PROVIDERS: PCP Internal Medicine; Referring Provider Internal Medicine; Visit Provider Surgery | DX: Z13.89 Encounter for screening for other disorder (principal) | CPT/HCPCS: 99212 ==

== ENCOUNTER 2022-11-20 06:38 | Outpatient (REF) | payer MEDICARE, BC, SELFPAY ==
[2022-11-20 06:47] LABS: MANUAL DIFF FLAG NO
[2022-11-20 07:23] LABS: Basophils Absolute Auto 0.1 X10*3/uL (0.0-0.2); Basophils Percent Auto 1.2 % (0-2); Eosinophils Absolute Auto 0.2 X10*3/uL (0.0-0.4); Hematocrit 41.1 % (42.0-52.0); Hemoglobin 13.4 g/dl (14.0-18.0); Imm Gran Abs Auto 0.04 X10*3/uL (0.00-0.03); Imm Gran Pct Auto 0.5 % (0.0-0.4); Lymphocytes Absolute Auto 1.9 X10*3/uL (1.2-4.9); Lymphocytes Percent Auto 22.5 % (20-40); Mean Corpuscular HGB Conc 32.6 g/dl (31.0-36.0); Mean Corpuscular Hemoglobin 28.6 pg (27.0-33.0); Mean Corpuscular Volume 87.6 fL (80.0-98.0); Mean Platelet Volume 10.7 fL (9.4-12.4); Monocytes Absolute Auto 0.8 X10*3/uL (0.1-1.2); Neutrophils Absolute Auto 5.4 x10*3/uL (2.0-8.3); Neutrophils Percent Auto 64.8 % (45-73); Platelet Count 279 X10*3/uL (160-400); Red Blood Count 4.69 X10*6/uL (4.60-5.80); Red Cell Distribution Width 13.1 % (11.0-16.0); White Blood Count 8.4 X10*3/uL (4.8-10.8)
[2022-11-20 08:00] LABS: Anion Gap 13 (12-20)
[2022-11-20 08:04] LABS: Appearance Urine Clear; Color Urine Yellow; Glucose Urine UA Negative (Negative); Leukocyte Esterase Urine Negative (Negative); Nitrite Urine Negative (Negative); PH 6.5 (5.0-9.0); Specific Gravity - Urine 1.015 (1.005-1.025); Urine Blood Negative (Negative); Urine Ketones Negative (Negative); Urine Protein Negative (Neg-Trace)
[2022-11-20 09:02] LABS: Alanine Aminotransferase 15 U/L (0-40); Alkaline Phosphatase 115 U/L (39-117); Bilirubin Total 0.7 mg/dL (0.0-1.0); Blood Urea Nitrogen 14 mg/dL (9-16); Calcium 9.2 mg/dL (8.4-10.2); Carbon Dioxide 24 mmol/L (22-29); Chloride 108 mmol/L (96-108); Cholesterol 154 mg/dL; Estimated Glomerular Filt Rate > 60; Glucose Fasting 82 mg/dL (60-99); HDL Cholesterol 50 mg/dL; LDL Cholesterol Calculated 92 mg/dl; Sodium 141 mmol/L (135-145); Total Protein 6.6 g/dL (6.5-8.0); Triglycerides 60 mg/dL
[2022-11-20 09:03] LABS: TSH reflex Free T4 1.71 uIU/mL (0.32-4.0); Vitamin D 25-OH Total 61.7 ng/mL (>30)
[2022-11-20 09:22] LABS: Aspartate Amino Transferase 23 U/L (5-37); Potassium 4.4 mmol/L (3.3-5.1)
== END 2022-11-20 06:39 | disposition home or self-care (01) ==
LOC: HO.LAB 06:38
PROVIDERS: PCP Internal Medicine; Visit Provider Internal Medicine
DX: E55.9 Vitamin D deficiency, unspecified (principal); E78.00 Pure hypercholesterolemia, unspecified; I10 Essential (primary) hypertension; R30.0 Dysuria
CPT/HCPCS: 36415; 80053; 80061; 81003; 82306; 84443; 85025

== ENCOUNTER 2023-05-25 06:28 | Outpatient (REF) | payer MEDICARE, BC, SELFPAY ==
[2023-05-25 06:40] LABS: MANUAL DIFF FLAG NO
[2023-05-25 07:37] LABS: Appearance Urine Clear; Color Urine Yellow; Glucose Urine UA Negative (Negative); Leukocyte Esterase Urine Negative (Negative); Nitrite Urine Negative (Negative); Urine Blood Negative (Negative); Urine Ketones Negative (Negative); Urine Protein Negative (Neg-Trace)
[2023-05-25 07:39] LABS: Basophils Absolute Auto 0.1 X10*3/uL (0.0-0.2); Basophils Percent Auto 0.9 % (0-2); Eosinophils Absolute Auto 0.4 X10*3/uL (0.0-0.4); Eosinophils Percent Auto 3.6 % (0-4); Hemoglobin 14.2 g/dl (14.0-18.0); Imm Gran Abs Auto 0.04 X10*3/uL (0.00-0.03); Imm Gran Pct Auto 0.4 % (0.0-0.4); Lymphocytes Absolute Auto 1.5 X10*3/uL (1.2-4.9); Lymphocytes Percent Auto 15.2 % (20-40); Mean Corpuscular Hemoglobin 29.6 pg (27.0-33.0); Mean Corpuscular Volume 89.8 fL (80.0-98.0); Mean Platelet Volume 10.7 fL (9.4-12.4); Monocytes Absolute Auto 0.9 X10*3/uL (0.1-1.2); Monocytes Percent Auto 9.1 % (2-11); Neutrophils Absolute Auto 6.9 x10*3/uL (2.0-8.3); Neutrophils Percent Auto 70.8 % (45-73); Platelet Count 311 X10*3/uL (160-400); Red Blood Count 4.79 X10*6/uL (4.60-5.80); Red Cell Distribution Width 12.6 % (11.0-16.0); White Blood Count 9.8 X10*3/uL (4.8-10.8)
[2023-05-25 08:36] LABS: Alanine Aminotransferase 16 U/L (0-40); Albumin Level 4.3 g/dL (3.5-5.0); Alkaline Phosphatase 116 U/L (39-117); Anion Gap 13 (12-20); Aspartate Amino Transferase 22 U/L (5-37); Bilirubin Total 0.5 mg/dL (0.0-1.0); Blood Urea Nitrogen 24 mg/dL (9-16); Calcium 9.5 mg/dL (8.4-10.2); Carbon Dioxide 24 mmol/L (22-29); Chloride 108 mmol/L (96-108); Cholesterol 174 mg/dL (<200); Estimated Glomerular Filt Rate > 60; Glucose Fasting 88 mg/dL (60-99); HDL Cholesterol 53 mg/dL (>40); LDL Cholesterol Calculated 111 mg/dL (<100); Potassium 4.2 mmol/L (3.3-5.1); Sodium 141 mmol/L (135-145); Total Protein 7.5 g/dL (6.5-8.0); Triglycerides 53 mg/dL (<150)
[2023-05-25 08:46] LABS: Vitamin D 25-OH Total 64.5 ng/mL (>30)
[2023-05-25 08:55] LABS: TSH reflex Free T4 1.62 uIU/mL (0.32-4.0)
== END 2023-05-25 06:29 | disposition home or self-care (01) ==
LOC: HO.LAB 06:28
PROVIDERS: PCP Internal Medicine; Visit Provider Internal Medicine
DX: I10 Essential (primary) hypertension (principal); E78.00 Pure hypercholesterolemia, unspecified; R30.0 Dysuria; E55.9 Vitamin D deficiency, unspecified
CPT/HCPCS: 36415; 80053; 80061; 81003; 82306; 84443; 85025

== ENCOUNTER 2023-05-29 09:18 | Outpatient (AMB) | payer MEDICARE, BC, SELFPAY ==
[2023-05-29 09:22] VITALS: BP 160/80; O2SAT 98; BMI 24.7
--- NOTE | 2023-05-29 09:22 | A.OFFPC_ITS ---
Vital Signs 05/29/23 09:22 05/29/23 10:05 Height 5 ft 8 in Weight 162 lb 4 oz BMI 24.7 BP 160/80 H 128/78 Blood Pressure Location Lt brachial Lt brachial Position Sitting Sitting Pulse Source Pulse Oximeter Pulse Oximetry (%) 98 Oxygen Delivery Method Room Air Intake Visit Reasons: hyperlipidemia Research Clerk Required: No Accompanied by: Self / Same As Patient Allergies No Known Allergies Allergy (Mild, Verified 05/29/23 09:50) NKA Medication List - Last Reconciled 05/29/23 by Too Mcgee MD ascorbic acid (vitamin C) 1 g PO DAILY atorvastatin 40 mg PO DAILY cholecalciferol (vitamin D3) 25 mcg PO .every other day latanoprost 0.005% (Xalatan) 1 drp ophthalmic (eye) BEDTIME multivitamin 1 tab PO DAILY omega-3 fatty acids (Fish Oil Concentrate) 1,000 mg PO DAILY Tobacco use date assessed: 11/26/22 Fall risk assessment: No Falls in past year Last assessed Fall Risk: 05/29/23 Dental Screening Dental Screen Date: 05/29/23 Did you have a dental visit in the last 12 months?: Yes Did you have a dental problem in the last 6 months where you did not have access to dental care?: No Was dental information given to patient?: Patient has dentist HPI hyperlipidemia HPI Details Patient comes in today for his follow up visit States that he feels okay He denies any headaches or dizziness Denies any chest pains, no SOB No nausea/vomiting, no abdominal pain No change in bowel habits noted Had his follow up labs done a few days ago - to discuss his results [facility] Medical History Constipation Overweight (BMI 25.0-29.9) Glaucoma Benign essential microscopic hematuria Lumbar degenerative disc disease Anemia Pure hypercholesterolemia Surgical History Hx of right inguinal hernia repair (07/16/22) Hx of basal cell carcinoma excision (~2020) History of colonoscopy History of tonsillectomy and adenoidectomy History of hemicolectomy History of inguinal hernia repair Family History Father CVD (cardiovascular disease) Mother CVD (cardiovascular disease) Social History Housing: House Are you a primary acute care registered nurse to a significant other at home: No Do you presently have visiting nurse or other home services: No Alcohol intake: current Alcohol intake frequency: 0-2 drinks per day Alcohol type: beer and wine Patient Tobacco Use Status: Former Tobacco user Quit Date: age 41 Tobacco use type: Cigarette Years Smoked: 15 e-Cigarette/Vaping Use: Never Used Second Hand Smoke Exposure: Yes service: Yes Current occupational status: retired Cognitive needs: No Hearing needs: No Vision needs: Yes (Reading glasses) Questionnaire PHQ-9 Over the last 2 weeks, how often have you been bothered by any of the following problems? Depression Screening Interpretation: Negative Depression Screening Done: Yes Source: Developed by Drs. Gordon Castellanos, Yesenia Ireland, Timothy Edmonds and colleagues, with an educational kandice from [employer]. Thrive Questionnaire Date Thrive assessed: 11/26/22 Currently or been in a relationship where the following occur: no concerns reported FELA-7 AMB Questionnaire FELA-7 Date FELA - 7 assessed: 11/26/22 Source: Developed by Drs. Gordon Castellanos, Yesenia Ireland, Timothy Edmonds and colleagues, with an educational kandice from [employer]. Review of Systems Const Denies chills, Denies fatigue, Denies fever(s) and Denies headache(s) ENT Denies dysphagia, Denies dizziness, Denies otalgia, Denies headache(s), Denies neck pain, Denies odynophagia and Denies sore throat Card Denies chest pain, Denies palpitations and Denies dyspnea Resp Denies cough and Denies dyspnea GI Denies abdominal pain, Reports constipation (better controlled lately), Denies dysphagia, Denies diarrhea, Denies nausea, Denies odynophagia and Denies vomiting Denies difficulty urinating, Denies dysuria and Denies urinary frequency Musc Reports back pain (on and off - mostly tolerable), Denies arthralgias and Denies neck pain Skin/Breast Denies rash Neuro Denies dizziness and Denies headache(s) Endo Denies fatigue and Denies palpitations Physical exam (Primary Care) Vital Signs: Last Vital Signs BP 160/80 H 05/29/23 09:22 Pulse Ox 98 05/29/23 09:22 Oxygen Delivery Method Room Air 05/29/23 09:22 BMI result Body Mass Index 24.7 Tobacco/Smoking Status: Tobacco use Status Tobacco use date assessed 11/26/22 05/29/23 09:30 Patient Tobacco Use Status Former Tobacco user 05/29/23 09:30 Tobacco use type Cigarette 05/29/23 09:30 e-Cigarette/Vaping Use Never Used 05/29/23 09:30 Depression Screening Interpretation: Negative Thrive Assessment: Date of Thrive Assessment Date Thrive assessed 11/26/22 05/29/23 09:30 Currently or been in a relationship where the following occur: no concerns reported Const General: no acute distress and alert HENMT Ears: TM's normal bilaterally and EAC's normal Throat: Yes posterior oropharynx normal and Yes tonsils normal Neck Neck: Yes no lymphadenopathy and Yes supple Resp Auscultation: clear to auscultation bilaterally, no rales and no wheezes Cardio Rate: regular rate Rhythm: regular rhythm Heart sounds: no murmurs GI Palpation (GI): Soft to palpation and nontender Auscultation: normal bowel sounds Back/Spine/Pelvis Thoracic/Lumbar Spine: lumbar spinal tenderness (mild) Extrem General: Yes no clubbing, cyanosis or edema Results Reviewed Results Reviewed: Laboratory Tests 05/25/23 05/25/23 05/25/23 06:35 06:39 06:39 WBC 9.8 Hgb 14.2 Hct 43.0 Plt Count 311 Sodium 141 Potassium 4.2 Creatinine 1.01 Estimated GFR > 60 Fasting Glucose 88 Calcium 9.5 AST 22 ALT 16 Triglycerides 53 Cholesterol 174 LDL Cholesterol, Calc 111 H HDL Cholesterol 53 25-OH Vitamin D Total 64.5 TSH 1.62 Ur Specific [place] 1.020 Urine Protein Negative Urine Glucose (UA) Negative Urine Blood Negative Assessment and Plan Assessment & Plan (1) Pure hypercholesterolemia: Code(s): E78.00 - Pure hypercholesterolemia, unspecified Plan: Results of his labs done a few days ago reviewed and discussed with patient - cautioned that his total and LDL cholesterol numbers have increased slightly from previous Reinforced low cholesterol diet Continue Atorvastatin 40 mg QD Will recheck his labs and fasting lipids in 6 months for follow up (2) Anemia: Code(s): D64.9 - Anemia, unspecified Qualifiers: Anemia type: unspecified type Qualified Code(s): D64.9 - Anemia, unspecified Plan: Corrected/stable - will continue to monitor his CBC regularly (3) Lumbar degenerative disc disease: Code(s): M51.36 - Other intervertebral disc degeneration, lumbar region Plan: Lumbar spine x-rays done back in April 2017 showed (+) significant lumbar spondylosis, especially at L1-L2 Patient states that his lower back has not been bothering him too often lately and he continues to be careful/aware with what he does activity-andersen Reinforced activity and weight-lifting restrictions (4) Constipation: Code(s): K59.00 - Constipation, unspecified Qualifiers: Constipation type: unspecified constipation type Qualified Code(s): K59.00 - Constipation, unspecified Plan: States that his symptoms have improved and are well-controlled - takes some OTC stool softener as needed Reinforced increased oral fluids and dietary fiber (5) Benign essential microscopic hematuria: Code(s): R31.1 - Benign essential microscopic hematuria Plan: Asymptomatic - will continue to monitor routinely (6) Glaucoma: Code(s): H40.9 - Unspecified glaucoma Qualifiers: Glaucoma type: unspecified Laterality: unspecified laterality Qualified Code(s): H40.9 - Unspecified glaucoma Plan: Follow up with ophthalmology as scheduled Plan Follow up in 6 months Orders: Orders Complete Blood Count Auto Diff 6 Months D64.9 - Anemia, unspecified UA CC w/rflx Micro + Cult 6 Months R30.0 - Dysuria Vitamin D 25-OH Total 6 Months E55.9 - Vitamin D deficiency, unspecified Comprehensive [place]. Panel Fast 6 Months E78.00 - Pure hypercholesterolemia, unspecified Lipid Panel 6 Months E78.00 - Pure hypercholesterolemia, unspecified TSH reflex Free T4 6 Months E78.00 - Pure hypercholesterolemia, unspecified Coding Level of Care Code Est Pt Level 4 (57471) Diagnoses Pure hypercholesterolemia E78.00 Anemia, unspecified type D64.9 Anemia type: unspecified type Lumbar degenerative disc disease M51.36 Constipation, unspecified constipation type K59.00 Constipation type: unspecified constipation type Benign essential microscopic hematuria R31.1 Glaucoma, unspecified glaucoma type, unspecified laterality H40.9 Glaucoma type: unspecified Laterality: unspecified laterality
[2023-05-29 10:05] VITALS: BP 128/78
== END 2023-05-29 10:08 | disposition home or self-care (01) ==
PROVIDERS: Visit Provider Internal Medicine
DX: E78.00 Pure hypercholesterolemia, unspecified (principal); D64.9 Anemia, unspecified; M51.36 Other intervertebral disc degeneration, lumbar region; K59.00 Constipation, unspecified; R31.1 Benign essential microscopic hematuria; H40.9 Unspecified glaucoma
CPT/HCPCS: 99214

== ENCOUNTER 2023-07-27 14:34 | Outpatient (AMB) | payer MEDICARE, BC, SELFPAY ==
--- NOTE | 2023-07-27 14:38 | A.OFFPC_ITS ---
Vital Signs 07/27/23 14:58 Height 5 ft 8 in Weight 169 lb BMI 25.7 BP 120/62 Blood Pressure Location Lt brachial Position Sitting Pulse 72 Pulse Source Palpation Intake Visit Reasons: continued sore throat Intake Note: Dr. Mcgee's patient here for ongoing throat irritation since April. [employer] Required: No Accompanied by: Self / Same As Patient Allergies No Known Allergies Allergy (Mild, Verified 07/27/23 15:31) NKA Medication List - Last Reconciled 07/27/23 by Liborio Loo PA-C ascorbic acid (vitamin C) 1 g PO DAILY atorvastatin 40 mg PO DAILY cholecalciferol (vitamin D3) 25 mcg PO .every other day latanoprost 0.005% (Xalatan) 1 drp ophthalmic (eye) BEDTIME multivitamin 1 tab PO DAILY omega-3 fatty acids (Fish Oil Concentrate) 1,000 mg PO DAILY Tobacco use date assessed: 07/27/23 Fall risk assessment: No Falls in past year Last assessed Fall Risk: 07/27/23 Dental Screening Dental Screen Date: 07/27/23 Did you have a dental visit in the last 12 months?: Yes Did you have a dental problem in the last 6 months where you did not have access to dental care?: No Was dental information given to patient?: Patient has dentist HPI continued sore throat HPI Details Patient is a 77-year-old male here today for problem visit. This is the 1st time I am meeting this 77-year-old male . Reports over the last 2 months having any irritation in the back of his throat. He reports the irritation is only intermittent mostly around nighttime or in the morning where he is bothered by this. No soar throat, fevers, change in voice or difficulty swallowing. Was a previous smoker 35 years ago. He has set up an appointment with ENT specialist and has upcoming appointment soon. Likely needs a scope to evaluate for any mucosal lesion. [facility] Medical History Constipation Overweight (BMI 25.0-29.9) Glaucoma Benign essential microscopic hematuria Lumbar degenerative disc disease Anemia Pure hypercholesterolemia Surgical History Hx of right inguinal hernia repair (07/16/22) Hx of basal cell carcinoma excision (~2020) History of colonoscopy History of tonsillectomy and adenoidectomy History of hemicolectomy History of inguinal hernia repair Family History Father CVD (cardiovascular disease) Mother CVD (cardiovascular disease) Social History Housing: House Are you a primary career development associate to a significant other at home: No Do you presently have visiting nurse or other home services: No Alcohol intake: current Alcohol intake frequency: 0-2 drinks per day Alcohol type: beer and wine Patient Tobacco Use Status: Former Tobacco user Quit Date: age 41 Tobacco use type: Cigarette Years Smoked: 15 e-Cigarette/Vaping Use: Never Used Second Hand Smoke Exposure: Yes service: Yes Current occupational status: retired Cognitive needs: No Hearing needs: No Vision needs: Yes (Reading glasses) Questionnaire PHQ-9 Over the last 2 weeks, how often have you been bothered by any of the following problems? 1. Little interest or pleasure in doing things: not at all 2. Feeling down, depressed, or hopeless: not at all 3. Trouble falling or staying asleep, or sleeping too much: not at all 4. Feeling tired or having little energy: not at all 5. Poor appetite or overeating: not at all 6. Feeling bad about yourself - or that you are a failure or have let yourself or your family down: not at all 7. Trouble concentrating on things, such as reading the newspaper or watching television: not at all 8. Moving or speaking so slowly that other people could have noticed. Or the opposite - being so fidgety or restless that you have been moving around a lot more than usual: not at all 9. Thoughts that you would be better off or of hurting yourself in some way: not at all Total score: 0 Depression Screening Interpretation: Negative Depression Screening Done: Yes 67714 - PHQ-9 Billing: Yes Source: Developed by Drs. Gordon Castellanos, Yesenia Ireland, Timothy Edmonds and colleagues, with an educational kandice from [employer]. Thrive Questionnaire Date Thrive assessed: 07/27/23 I am a: Patient What is your living situation today?: I have a steady place to live Within the past 12 months, did the food you bought not last and you didn't have the money to get more?: Never true Within the past 12 months, did you worry whether your food would run out before you got money to buy more?: Never true Do you have trouble paying for medicines?: No Do you have trouble getting transportation to medical appointments?: No Do you have trouble paying your heating and electricity bill?: No Do you have trouble taking care of your child, family member or friend?: No Do you have trouble with day-to-day activities such as bathing, preparing meals, shopping, managing finances, etc.?: No Are you currently unemployed and looking for a job?: No Are you interested in more education?: No Please select the resources that you would like help with: None Currently or been in a relationship where the following occur: no concerns reported AUDIT C Alcohol Use Questionnaire (AUDIT-C) 1. How often do you have a drink containing alcohol?: 4 or more times a week 2. How many drinks containing alcohol do you have on a typical day when you are drinking?: 1 or 2 (Beer or Wine with supper.) 3. How often do you have six or more drinks on one occasion?: Never Total Score: 4 FELA-7 AMB Questionnaire FELA-7 Date FELA - 7 assessed: 07/27/23 Feeling nervous, anxious, or on edge: 0 = Not at all Not being able to stop or control worryin = Not at all Worrying too much about different things: 0 = Not at all Trouble relaxin = Not at all Being so restless that it is hard to sit still: 0 = Not at all Becoming easily annoyed or irritable: 0 = Not at all Feeling afraid as if something awful might happen: 0 = Not at all Total FELA-7 score (0-4 normal; 5-9 mild; 10-14 moderate; 15-21 severe): 0 Source: Developed by Drs. Gordon Castellanos, Yesenia Ireland, Timothy Edmonds and colleagues, with an educational kandice from [email or web address] FELA-7 Assessment Billing FELA-7 Assessment Tool: FELA-7 Assessment 14842 Review of Systems Const Denies headache(s) Eyes Denies loss of vision ENT Denies vertigo, Denies dizziness, Denies headache(s) and Denies sore throat Card Denies chest pain, Denies leg edema and Denies lightheadedness Resp Denies cough, Denies hemoptysis and Denies wheezing GI Denies abdominal pain, Denies melena, Denies constipation, Denies diarrhea and Denies vomiting Denies dysuria, Denies urinary frequency and Denies urinary urgency Musc Denies arthralgias, Denies joint swelling, Denies numbness and Denies tingling Neuro Denies Abnormal speech present, Denies behavioral changes, Denies vertigo, Denies dizziness, Denies headache(s), Denies loss of vision, Denies memory loss, Denies numbness and Denies tingling Psych Denies anxiety, Denies behavioral changes, Denies depression, Denies memory loss and Denies panic attacks Johan/Lymph Denies easy bleeding and Denies easy bruising Aller/Immun Denies wheezing Physical exam (Primary Care) Vital Signs: Last Vital Signs Pulse 72 07/27/23 14:58 BP 120/62 07/27/23 14:58 BMI result Body Mass Index 25.7 Tobacco/Smoking Status: Tobacco use Status Tobacco use date assessed 07/27/23 07/27/23 14:56 Patient Tobacco Use Status Former Tobacco user 07/27/23 14:38 Tobacco use type Cigarette 07/27/23 14:38 e-Cigarette/Vaping Use Never Used 07/27/23 14:38 PHQ-9: PHQ-9 Score PHQ-9: Total score 0 07/27/23 15:36 Depression Screening Interpretation: Negative Thrive Assessment: Date of Thrive Assessment Date Thrive assessed 07/27/23 07/27/23 14:56 Currently or been in a relationship where the following occur: no concerns reported Const General: healthy appearing, no acute distress, alert and awake Nutritional Appearance: well nourished Orientation/consciousness: oriented to person, oriented to place and oriented to time HENMT Ears: TM's normal bilaterally General nose exam: Normal nasal mucous membranes and turbinates present Eyes Conjunctivae: conjunctivae normal Sclerae: sclerae normal Pupils: Equal, round and reactive pupils present Neck Neck: Yes no lymphadenopathy and Yes no JVD Thyroid: Thyroid normal Carotids: no bruits Resp Effort & Inspection: normal respiratory effort and not tachypneic Auscultation: no crackles, no rales, no rhonchi and no wheezes Cardio Rate: regular rate Rhythm: regular rhythm Heart sounds: no murmurs and normal S1 and S2 GI Palpation (GI): Soft to palpation, nontender, no hepatomegaly and no splenomegaly Auscultation: normal bowel sounds Skin General skin exam: no rashes or lesions noted and dry skin Neuro General: oriented to person, oriented to place and oriented to time Cranial nerves: Yes Equal, round and reactive pupils present Speech: No Abnormal speech present Gait exam (Neuro): Normal gait present Motor exam (neuro): no tremor noted Extrem Right upper extremity: full ROM Left upper extremity: full ROM Right lower extremity: full ROM; no edema Left lower extremity: full ROM; no edema Psych Mental Status: mental status grossly normal Speech and movement: Normal speech and movement present Affect: normal affect Attitude: cooperative Thought process: Normal thought process present Assessment and Plan Assessment & Plan (1) Irritated throat: Code(s): J39.2 - Other diseases of pharynx Plan: Unclear etiology to patient's 2 month history throat irritation that is intermittent. Patient is a previous smoker. He has set himself up an appointment with ENT here in [place]. Physical exam today benign appearing. Likely needs scope to evaluate for any mucosal lesion. Coding Level of Care Code Est Pt Level 3 (10955) Diagnoses Irritated throat J39.2 Additional Codes FELA-7 Assessment Billing - FELA-7 Assessment Tool: FELA-7 Assessment 94646 ([id number])
[2023-07-27 14:58] VITALS: BP 120/62; PULSE 72; BMI 25.7
== END 2023-07-27 15:44 | disposition home or self-care (01) ==
PROVIDERS: PCP Internal Medicine; Visit Provider Physician Assistant
DX: J39.2 Other diseases of pharynx (principal)
CPT/HCPCS: 99213

== ENCOUNTER 2023-10-19 15:52 | Outpatient (AMB) | payer MEDICARE, BC, SELFPAY ==
--- NOTE | 2023-10-19 15:56 | MHC.PC.OV ---
Vital Signs 10/19/23 15:58 Height 5 ft 8 in Weight 167 lb BMI 25.4 BP 146/70 H Blood Pressure Location Lt brachial Position Sitting Pulse 41 L Pulse Source Pulse Oximeter Pulse Oximetry (%) 97 Oxygen Delivery Method Room Air Intake Visit Reasons: High BP, Dizziness, light headed Intake Note: Patient is here to follow up on High bp, Dizziness and light headed ongoing for four days. Second Hand Paper Machine Required: No Operations Vice President: Not Required per policy Accompanied by: Self / Same As Patient Allergies No Known Allergies Allergy (Mild, Verified 10/19/23 16:19) NKA Medication List - Last Reconciled 10/19/23 by Too Mcgee MD ascorbic acid (vitamin C) 1 g PO DAILY atorvastatin 40 mg PO DAILY cholecalciferol (vitamin D3) 25 mcg PO .every other day latanoprost 0.005% (Xalatan) 1 drp ophthalmic (eye) BEDTIME multivitamin 1 tab PO DAILY omega-3 fatty acids (Fish Oil Concentrate) 1,000 mg PO DAILY Tobacco use date assessed: 10/19/23 Fall risk assessment: No Falls in past year Last assessed Fall Risk: 10/19/23 Dental Screening Dental Screen Date: 10/19/23 Did you have a dental visit in the last 12 months?: Yes Did you have a dental problem in the last 6 months where you did not have access to dental care?: No Was dental information given to patient?: Patient has dentist HPI High BP, Dizziness, light headed HPI Details Patient comes in today for further evaluation of some recurrent dizzy spells lately Notes that his dizziness would often occur with sudden changes in position, most commonly when he gets up from sitting in a chair, especially in the morning States that these episodes tend to last for a few seconds and would gradually subside and that he is aware to wait until they pass before he starts moving around so he does not lose his balance, fall and get hurt States that he feels okay otherwise and denies any headaches He denies any associated SOB or chest pain/pressure with his spells of dizziness and relates that he has not felt any palpitations or irregular heartbeats/skipped beats lately No nausea/vomiting, no abdominal pain No change in bowel habits noted [facility] Medical History Constipation Overweight (BMI 25.0-29.9) Glaucoma Benign essential microscopic hematuria Lumbar degenerative disc disease Anemia Pure hypercholesterolemia Surgical History Hx of right inguinal hernia repair (07/16/22) Hx of basal cell carcinoma excision (~2020) History of colonoscopy History of tonsillectomy and adenoidectomy History of hemicolectomy History of inguinal hernia repair Family History Father CVD (cardiovascular disease) Mother CVD (cardiovascular disease) Social History Housing: House Are you a primary after school caregiver to a significant other at home: No Do you presently have visiting nurse or other home services: No Alcohol intake: current Alcohol intake frequency: 0-2 drinks per day Alcohol type: beer and wine Patient Tobacco Use Status: Former Tobacco user Quit Date: age 41 Tobacco use type: Cigarette Years Smoked: 15 e-Cigarette/Vaping Use: Never Used Second Hand Smoke Exposure: Yes service: Yes Current occupational status: retired Cognitive needs: No Hearing needs: No Vision needs: Yes (Reading glasses) Questionnaire PHQ-9 Over the last 2 weeks, how often have you been bothered by any of the following problems? Depression Screening Interpretation: Negative Depression Screening Done: Yes Source: Developed by Drs. Gordon Castellanos, Yesenia Ireland, Timothy Edmonds and colleagues, with an educational kandice from [employer]. Thrive Questionnaire Date Thrive assessed: 07/27/23 Currently or been in a relationship where the following occur: no concerns reported THRIVE Score: 0 FELA-7 AMB Questionnaire FELA-7 Date FELA - 7 assessed: 07/27/23 Source: Developed by Drs. Gordon Castellanos, Yesenia Ireland, Timothy Edmonds and colleagues, with an educational kandice from [employer]. Review of Systems Const Denies chills, Denies fatigue, Denies fever(s) and Denies headache(s) ENT Denies dysphagia, Reports dizziness (on and off - see HPI), Denies otalgia, Denies headache(s), Denies neck pain, Denies odynophagia and Denies sore throat Card Denies chest pain, Denies rapid heart rate, Denies palpitations and Denies dyspnea Resp Denies cough and Denies dyspnea GI Denies abdominal pain, Denies constipation, Denies dysphagia, Denies diarrhea, Denies nausea, Denies odynophagia and Denies vomiting Denies difficulty urinating, Denies dysuria and Denies urinary frequency Musc Reports back pain (on and off - mostly tolerable), Denies arthralgias and Denies neck pain Skin/Breast Denies rash Neuro Reports dizziness (on and off - see HPI) and Denies headache(s) Endo Denies fatigue and Denies palpitations Physical exam (Primary Care) Vital Signs: Last Vital Signs Pulse 41 L 10/19/23 15:58 BP 146/70 H 10/19/23 15:58 Pulse Ox 97 10/19/23 15:58 Oxygen Delivery Method Room Air 10/19/23 15:58 BMI result Body Mass Index 25.4 Tobacco/Smoking Status: Tobacco use Status Tobacco use date assessed 10/19/23 10/19/23 16:03 Patient Tobacco Use Status Former Tobacco user 10/19/23 16:03 Tobacco use type Cigarette 10/19/23 16:03 e-Cigarette/Vaping Use Never Used 10/19/23 16:03 Depression Screening Interpretation: Negative Thrive Assessment: Date of Thrive Assessment Date Thrive assessed 07/27/23 10/19/23 16:03 Currently or been in a relationship where the following occur: no concerns reported Const General: no acute distress and alert HENMT Ears: TM's normal bilaterally and EAC's normal Throat: Yes posterior oropharynx normal and Yes tonsils normal Neck Neck: Yes no lymphadenopathy and Yes supple Resp Auscultation: clear to auscultation bilaterally, no rales and no wheezes Cardio Rate: regular rate Rhythm: abnormal rhythm with ectopic beats Heart sounds: no murmurs GI Palpation (GI): Soft to palpation and nontender Auscultation: normal bowel sounds Back/Spine/Pelvis Thoracic/Lumbar Spine: lumbar spinal tenderness (mild) Extrem General: Yes no clubbing, cyanosis or edema Assessment and Plan Assessment & Plan (1) Cardiac arrhythmia: Code(s): I49.9 - Cardiac arrhythmia, unspecified Qualifiers: Arrhythmia type: unspecified cardiac arrhythmia Qualified Code(s): I49.9 - Cardiac arrhythmia, unspecified Plan: Patient is advised that his current heart rate appears to be slower than normal BUT this is likely due to some irregularity in his present cardiac rhythm as he appears to have some ectopic beats / skipped beats every 3rd or 4th heartbeats on auscultation Will send him for a 12-lead EKG [place] for further evaluation / clarification of his current arrhythmia and advised that depending on what his rhythm comes out as, this may be what is triggering or causing his recent dizzy spells Advised that he may also need some additional work ups but we will wait and see how his EKG comes out first Plan Follow up as scheduled next month Orders: Orders ECG 12 lead EKG 10/19/23 I49.9 - Cardiac arrhythmia, unspecified Coding Level of Care Code Est Pt Level 3 (20000) Diagnoses Cardiac arrhythmia, unspecified cardiac arrhythmia type I49.9 Arrhythmia type: unspecified cardiac arrhythmia
[2023-10-19 15:58] VITALS: BP 146/70; PULSE 41; O2SAT 97; BMI 25.4
== END 2023-10-19 16:34 | disposition home or self-care (01) ==
PROVIDERS: PCP Internal Medicine; Visit Provider Internal Medicine
DX: I49.9 Cardiac arrhythmia, unspecified (principal)
CPT/HCPCS: 99213

== ENCOUNTER → 2023-10-20 09:40 | Outpatient (REF) | payer MEDICARE, BC, SELFPAY ==
--- NOTE | 2023-10-20 09:46 | ECG_ITS ---
Test Reason : I49.9 Blood Pressure : / mmHG Vent. Rate : 066 BPM Atrial Rate : 066 BPM P-R Int : 210 ms QRS Dur : 086 ms QT Int : 422 ms P-R-T Axes : 050 028 037 degrees QTc Int : 442 ms Sinus rhythm with 1st degree A-V block Otherwise normal ECG When compared with ECG of 25-APR-2021 10:35, No significant change was found Referred By: Too Mcgee Electronically Signed By:CHAS VELASCO MD
== END ==
LOC: HO.CARD 09:40
PROVIDERS: PCP Internal Medicine; Visit Provider Internal Medicine
DX: I49.9 Cardiac arrhythmia, unspecified (principal)
CPT/HCPCS: 93005

== ENCOUNTER → 2023-10-20 09:46 | Outpatient (BNV) | payer MEDICARE, BC, SELFPAY | PROVIDERS: PCP Internal Medicine; Visit Provider Internal Medicine Cardiovascular Disease | DX: I44.0 Atrioventricular block, first degree (principal) | CPT/HCPCS: 93010 ==

== ENCOUNTER 2023-11-16 06:22 | Outpatient (REF) | payer MEDICARE, BC, SELFPAY ==
[2023-11-16 06:36] LABS: MANUAL DIFF FLAG NO
[2023-11-16 07:14] LABS: Basophils Absolute Auto 0.1 X10*3/uL (0.0-0.2); Eosinophils Absolute Auto 0.2 X10*3/uL (0.0-0.4); Eosinophils Percent Auto 2.5 % (0-4); Hematocrit 39.1 % (42.0-52.0); Hemoglobin 12.9 g/dl (14.0-18.0); Imm Gran Abs Auto 0.02 X10*3/uL (0.00-0.03); Imm Gran Pct Auto 0.3 % (0.0-0.4); Lymphocytes Absolute Auto 1.7 X10*3/uL (1.2-4.9); Lymphocytes Percent Auto 23.2 % (20-40); Mean Corpuscular Hemoglobin 29.1 pg (27.0-33.0); Mean Corpuscular Volume 88.1 fL (80.0-98.0); Mean Platelet Volume 10.4 fL (9.4-12.4); Monocytes Absolute Auto 0.7 X10*3/uL (0.1-1.2); Monocytes Percent Auto 10.1 % (2-11); Neutrophils Absolute Auto 4.6 x10*3/uL (2.0-8.3); Neutrophils Percent Auto 62.9 % (45-73); Platelet Count 278 X10*3/uL (160-400); Red Blood Count 4.44 X10*6/uL (4.60-5.80); Red Cell Distribution Width 13.2 % (11.0-16.0); White Blood Count 7.3 X10*3/uL (4.8-10.8)
[2023-11-16 07:43] LABS: Appearance Urine Clear; Color Urine Yellow; Glucose Urine UA Negative (Negative); Leukocyte Esterase Urine Negative (Negative); Nitrite Urine Negative (Negative); Urine Blood Negative (Negative); Urine Ketones Negative (Negative); Urine Protein Negative (Neg-Trace)
[2023-11-16 09:07] LABS: TSH reflex Free T4 1.69 uIU/mL (0.32-4.0); Vitamin D 25-OH Total 50.3 ng/mL (>30)
[2023-11-16 11:41] LABS: Anion Gap 15 (12-20)
[2023-11-16 11:48] LABS: Alanine Aminotransferase 16 U/L (0-40); Albumin Level 3.9 g/dL (3.5-5.0); Alkaline Phosphatase 112 U/L (39-117); Aspartate Amino Transferase 20 U/L (5-37); Bilirubin Total 0.5 mg/dL (0.0-1.0); Blood Urea Nitrogen 24 mg/dL (9-16); Calcium 9.2 mg/dL (8.4-10.2); Carbon Dioxide 21 mmol/L (22-29); Chloride 109 mmol/L (96-108); Cholesterol 156 mg/dL (<200); Estimated Glomerular Filt Rate > 60; Glucose Fasting 90 mg/dL (60-99); HDL Cholesterol 58 mg/dL (>40); LDL Cholesterol Calculated 89 mg/dL (<100); Potassium 3.8 mmol/L (3.3-5.1); Sodium 141 mmol/L (135-145); Triglycerides 47 mg/dL (<150)
== END 2023-11-16 06:23 | disposition home or self-care (01) ==
LOC: HO.LAB 06:22
PROVIDERS: PCP Internal Medicine; Visit Provider Internal Medicine
DX: D64.9 Anemia, unspecified (principal); R30.0 Dysuria; E55.9 Vitamin D deficiency, unspecified; E78.00 Pure hypercholesterolemia, unspecified
CPT/HCPCS: 36415; 80053; 80061; 81003; 82306; 84443; 85025

== ENCOUNTER 2023-11-19 09:17 | Outpatient (AMB) | payer MEDICARE, BC, SELFPAY ==
[2023-11-19 09:18] VITALS: BP 140/72; PULSE 72; O2SAT 98; BMI 25.7
--- NOTE | 2023-11-19 09:18 | A.OFFPC_ITS ---
Vital Signs 11/19/23 09:18 Height 5 ft 8 in Weight 169 lb 0.8 oz BMI 25.7 BP 140/72 H Blood Pressure Location Lt brachial Position Sitting Pulse 72 Pulse Source Pulse Oximeter Pulse Oximetry (%) 98 Oxygen Delivery Method Room Air Intake Visit Reasons: 6 month f/u Intake Note: Patient is here to follow up on 6 months Filling Mixer Required: No Allergies No Known Allergies Allergy (Mild, Verified 11/19/23 10:03) NKA Medication List - Last Reconciled 11/19/23 by Too Mcgee MD ascorbic acid (vitamin C) 1 g PO DAILY atorvastatin 40 mg PO DAILY cholecalciferol (vitamin D3) 25 mcg PO .every other day latanoprost 0.005% (Xalatan) 1 drp ophthalmic (eye) BEDTIME multivitamin 1 tab PO DAILY omega-3 fatty acids (Fish Oil Concentrate) 1,000 mg PO DAILY Tobacco use date assessed: 11/19/23 Fall risk assessment: No Falls in past year Last assessed Fall Risk: 11/19/23 Dental Screening Dental Screen Date: 10/19/23 HPI 6 month f/u 2 HPI Details Patient comes in today for his follow up visit States that he feels okay He denies any headaches but still has on and off dizziness which are mostly transient and often associated with changes in position Denies any chest pains, no SOB No nausea/vomiting, no abdominal pain No change in bowel habits noted Had his follow up labs done a few days ago - to discuss his results [facility] Medical History Constipation Overweight (BMI 25.0-29.9) Glaucoma Benign essential microscopic hematuria Lumbar degenerative disc disease Anemia Pure hypercholesterolemia Surgical History Hx of right inguinal hernia repair (07/16/22) Hx of basal cell carcinoma excision (~2020) History of colonoscopy History of tonsillectomy and adenoidectomy History of hemicolectomy History of inguinal hernia repair Family History Father CVD (cardiovascular disease) Mother CVD (cardiovascular disease) Social History Housing: House Are you a primary child care leader to a significant other at home: No Do you presently have visiting nurse or other home services: No Alcohol intake: current Alcohol intake frequency: 0-2 drinks per day Alcohol type: beer and wine Patient Tobacco Use Status: Former Tobacco user Quit Date: age 41 Tobacco use type: Cigarette Years Smoked: 15 e-Cigarette/Vaping Use: Never Used Second Hand Smoke Exposure: Yes service: Yes Current occupational status: retired Cognitive needs: No Hearing needs: No Vision needs: Yes (Reading glasses) Questionnaire Thrive Questionnaire Date Thrive assessed: 07/27/23 AUDIT C Alcohol Use Questionnaire (AUDIT-C) 1. How often do you have a drink containing alcohol?: 4 or more times a week 2. How many drinks containing alcohol do you have on a typical day when you are drinking?: 1 or 2 (Beer or Wine with supper.) 3. How often do you have six or more drinks on one occasion?: Never Total Score: 4 Score Reviewed/Action Taken: Yes FELA-7 AMB Questionnaire FELA-7 Date FELA - 7 assessed: 07/27/23 Source: Developed by Drs. Gordon Castellanos, Yesenia Ireland, Timothy Edmonds and colleagues, with an educational kandice from [email or web address]. Review of Systems Const Denies chills, Denies fatigue, Denies fever(s) and Denies headache(s) ENT Reports as per HPI, Denies dysphagia, Reports dizziness (on and off - see HPI), Denies otalgia, Denies headache(s), Denies neck pain, Denies odynophagia and Denies sore throat Card Denies chest pain, Denies rapid heart rate, Denies palpitations and Denies dyspnea Resp Denies cough and Denies dyspnea GI Denies abdominal pain, Denies constipation, Denies dysphagia, Denies diarrhea, Denies nausea, Denies odynophagia and Denies vomiting Denies difficulty urinating, Denies dysuria and Denies urinary frequency Musc Reports back pain (on and off - mostly tolerable), Denies arthralgias and Denies neck pain Skin/Breast Denies rash Neuro Reports dizziness (on and off - see HPI) and Denies headache(s) Endo Denies fatigue and Denies palpitations Physical exam (Primary Care) Vital Signs: Last Vital Signs Pulse 72 05/02/24 09:18 BP 140/72 H 11/19/23 09:18 Pulse Ox 98 11/19/23 09:18 Oxygen Delivery Method Room Air 11/19/23 09:18 BMI result Body Mass Index 25.7 Tobacco/Smoking Status: Tobacco use Status Tobacco use date assessed 11/19/23 11/19/23 09:19 Patient Tobacco Use Status Former Tobacco user 11/19/23 09:19 Tobacco use type Cigarette 11/19/23 09:19 e-Cigarette/Vaping Use Never Used 11/19/23 09:19 Thrive Assessment: Date of Thrive Assessment Date Thrive assessed 07/27/23 11/19/23 09:19 Const General: no acute distress and alert HENMT Ears: TM's normal bilaterally and EAC's normal Throat: Yes posterior oropharynx normal and Yes tonsils normal Neck Neck: Yes no lymphadenopathy and Yes supple Resp Auscultation: clear to auscultation bilaterally, no rales and no wheezes Cardio Rate: regular rate Rhythm: abnormal rhythm with ectopic beats Heart sounds: no murmurs GI Palpation (GI): Soft to palpation and nontender Auscultation: normal bowel sounds Back/Spine/Pelvis Thoracic/Lumbar Spine: lumbar spinal tenderness (mild) Extrem General: Yes no clubbing, cyanosis or edema Results Reviewed Results Reviewed: Laboratory Tests 11/16/23 06:35 WBC 7.3 Hgb 12.9 L Hct 39.1 L Plt Count 278 Sodium 141 Potassium 3.8 Creatinine 1.10 Estimated GFR > 60 Fasting Glucose 90 Calcium 9.2 AST 20 ALT 16 Triglycerides 47 Cholesterol 156 LDL Cholesterol, Calc 89 HDL Cholesterol 58 25-OH Vitamin D Total 50.3 TSH 1.69 Ur Specific Martell 1.020 Urine Protein Negative Urine Glucose (UA) Negative Urine Blood Negative Urine Nitrite Negative Ur Leukocyte Esterase Negative Assessment and Plan Assessment & Plan (1) Pure hypercholesterolemia: Code(s): E78.00 - Pure hypercholesterolemia, unspecified Plan: Results of his labs done a few days ago reviewed and discussed with patient - he is advised that his total and LDL cholesterol numbers have again improved significantly from previous Reinforced low cholesterol diet Continue Atorvastatin 40 mg QD Will recheck his labs and fasting lipids in 6 months for follow up (2) Anemia: Code(s): D64.9 - Anemia, unspecified Qualifiers: Anemia type: unspecified type Qualified Code(s): D64.9 - Anemia, unspecified Plan: Corrected/stable - will continue to monitor his CBC regularly (3) Orthostasis: Code(s): I95.1 - Orthostatic hypotension Plan: Patient is advised that he currently is not on any medications that would affect his blood pressure and that his BP log that he brought in today shows excellent BP control, with his systolic BP consistently around 120 to 130 mm for the majority of the past couple of months Have advised him that at this time, he should make sure he stays hydrated (as dehydration can aggravate his orthostasis) and he should take his time when changing positions There is no indication at this time to start him on anything to help with his blood pressure and he is advised to continue monitoring his blood pressure regularly He already had an EKG done, which was mostly normal and his CT angio of the head and neck done back in 04/2021 revealed no significant stenosis Will send him for an echocardiogram to complete his evaluation (4) Lumbar degenerative disc disease: Code(s): M51.36 - Other intervertebral disc degeneration, lumbar region Plan: Lumbar spine x-rays done back in April 2017 showed (+) significant lumbar spondylosis, especially at L1-L2 Patient states that his lower back has not been bothering him too often lately and he continues to be careful/aware with what he does activity-andersen Reinforced activity and weight-lifting restrictions (5) Constipation: Code(s): K59.00 - Constipation, unspecified Qualifiers: Constipation type: unspecified constipation type Qualified Code(s): K59.00 - Constipation, unspecified Plan: States that his symptoms have improved and are well-controlled - takes some OTC stool softener as needed Reinforced increased oral fluids and dietary fiber (6) Benign essential microscopic hematuria: Code(s): R31.1 - Benign essential microscopic hematuria Plan: Asymptomatic - his last urine sample came back showing no RBCs in the urine Will continue to monitor routinely (7) Glaucoma: Code(s): H40.9 - Unspecified glaucoma Qualifiers: Glaucoma type: unspecified Laterality: unspecified laterality Qualified Code(s): H40.9 - Unspecified glaucoma Plan: Follow up with ophthalmology as scheduled Plan Follow up in 6 months Orders: Orders CA echo transthoracic complete Today I49.9 - Cardiac arrhythmia, unspecified, I95.1 - Orthostatic hypotension Coding Level of Care Code Est Pt Level 4 (04061) Diagnoses Pure hypercholesterolemia E78.00 Anemia, unspecified type D64.9 Anemia type: unspecified type Orthostasis I95.1 Lumbar degenerative disc disease M51.36 Constipation, unspecified constipation type K59.00 Constipation type: unspecified constipation type Benign essential microscopic hematuria R31.1 Glaucoma, unspecified glaucoma type, unspecified laterality H40.9 Glaucoma type: unspecified Laterality: unspecified laterality
== END 2023-11-19 10:24 | disposition home or self-care (01) ==
PROVIDERS: PCP Internal Medicine; Visit Provider Internal Medicine
DX: E78.00 Pure hypercholesterolemia, unspecified (principal); D64.9 Anemia, unspecified; I95.1 Orthostatic hypotension; M51.36 Other intervertebral disc degeneration, lumbar region; K59.00 Constipation, unspecified; R31.1 Benign essential microscopic hematuria; H40.9 Unspecified glaucoma
CPT/HCPCS: 99214

== ENCOUNTER → 2023-12-16 07:56 | Outpatient (REF) | payer MEDICARE, BC, SELFPAY ==
--- NOTE | 2023-12-16 07:58 | CA_ITS ---
Transthoracic Echocardiogram Patient (Last, First, Middle): Eduar Shine H Gender: Male Date of : 1945 Age: 78 Procedure Date: 12/16/2023 Procedure Type: Transthoracic Echocardiogram Location: OP Height: 175.26 cm Weight: 74.84 kg BSA: 1.90 m2 Heart Rate: bpm BP: 110 / 60 mmHg Interior Painter: Referring MD: Too Mcgee MD Symptoms: I49.9 - Cardiac arrhythmia, unspecified Study Quality: Adequate ECG Rhythm: Sinus Conclusions: - The left ventricular systolic function is normal. The calculated ejection fraction is 58% by biplane method. - The left atrium is moderately dilated. - There is bowing of the posterior mitral leaflet without obvious prolapse. There is mild mitral valve regurgitation. Findings Left Ventricle Normal left ventricular cavity size. The left ventricular systolic function is normal. The calculated ejection fraction is 58% by biplane method. There is no evidence of regional wall motion abnormalities. Diastolic function is normal for age. Moderate basal septal hypertrophy. Right Ventricle Mildly increased right ventricular cavity size. There is normal right ventricular systolic function. Atria The left atrium is moderately dilated. The right atrium is normal in size. Aortic Valve The aortic valve was not well visualized. There is no aortic valve stenosis. There is no aortic valve regurgitation. Mitral Valve There is bowing of the posterior mitral leaflet without obvious prolapse. There is mild mitral valve regurgitation. There is no mitral valve stenosis. Pulmonic Valve The pulmonic valve is likely normal. Tricuspid Valve There is trace tricuspid valve regurgitation. There is no evidence of pulmonary hypertension. Great Vessels The asc aorta is normal in size. Venous The inferior vena cava is normal in size and collapses greater than 50% with inspiration. Pericardium/Pleural There is no evidence of pericardial effusion. Prior Study Comparison No prior study available for comparison. Measurements 2D Linear Measurements IVSd: 1.33 0.6-0.9/0.6-1.0 cm LVIDd: 3.92 3.9-5.3/4.2-5.9 cm LVIDd Index: 2.06 2.4-3.2/2.2-3.1 cm/m2 LVIDs: 2.62 2.0-3.6 cm LVPWd: 1.35 0.7-1.1 cm Ao Root: 3.80 2.1-3.5 cm LA Diam: 3.70 2.7-3.8/3.0-4.0 cm LAIDs Index: 1.95 1.5-2.3 cm/m2 LV Mass: 236.35 67-162/88-224 g LV Mass Index: 124.39 43-95/49-115 g/m2 LVOT Diam: 2.20 3.0+(-)1.3 cm 2D Systolic Function EF 4C: 61.00 >55% EF 2C: 58.30 >55% EF BiP: 57.60 >55% Mitral Valve MV Pk E: 0.75 MV PK A: 0.69 MV Decel Time: 248.00 E/A: 1.10 E'Lateral: 8.49 E'Medial: 6.42 E/E' Med: 11.60 E/E' Lat: 8.80 PHT: 73.00 MVA PHT: 3.01 Decel Sequoyah: 3.01 Aortic Valve AoV Pk Lloyd: 1.34 AoV Pk Grad: 7.00 LVOT LVOT Pk Lloyd: 0.84 LVOT Mn Lloyd: 0.50 LVOT VTI: 0.23 LVOT Pk Grad: 3.00 LVOT Mn Grad: 1.00 LVOT Diam: 2.20 LVOT Area: 3.80 Diastolic Function MV Pk E: 0.75 MV Pk A: 0.69 E/A: 1.10 E'Medial: 6.42 E/E' Med: 11.60 E' Laterial: 8.49 E/E' Lat: 8.80 Tricuspid Valve TR Pk Lloyd: 1.85 TR Pk Grad: 14.00 RA Press: 3.00 RVSP: 17.00 Great Vessels Aorta Ao Root-2D: 3.80 2.0-3.7 cm Ao Asc: 3.70 2.1-3.4 cm Pulmonary Valve PV Pk Lloyd: 0.86 Peak PV Grad: 3.00 Updated in Other Vendor System with Status of Final Theodore Moreno MD electronically signed on 12/18/2023 9:54:02 AM with status of Final
== END ==
LOC: HO.CARD 07:56
PROVIDERS: PCP Internal Medicine; Visit Provider Internal Medicine
DX: I49.9 Cardiac arrhythmia, unspecified (principal); I95.1 Orthostatic hypotension
CPT/HCPCS: 93306

== ENCOUNTER → 2023-12-16 07:58 | Outpatient (BNV) | payer MEDICARE, BC, SELFPAY | PROVIDERS: PCP Internal Medicine; Visit Provider Internal Medicine | DX: I34.0 Nonrheumatic mitral (valve) insufficiency (principal) | CPT/HCPCS: 93306 ==

== ENCOUNTER 2024-03-29 08:51 | Outpatient (AMB) | payer MEDICARE, BC, SELFPAY ==
[2024-03-29 08:55] VITALS: BP 144/69; PULSE 66; BMI 24.5
--- NOTE | 2024-03-29 08:55 | A.OFFVIS_ITS ---
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 Patient with the last several months been having symptoms of lightheadedness. He said he ge ts symptoms when he gets up from a recliner after watching TV and he would sit up and he would get lightheaded for about 10 seconds and then when he would stand up he will get lightheaded would last for 10 seconds. He has never had any syncopal episodes. The symptoms would also happen when he gets up in the morning after sleeping supine. He has notice the symptoms to get better over the last couple of months, has been maintaining more adequate hydration. He drinks about 32-40 oz every day. He denies any symptoms of palpitations. He said he has been told that he has had irregular heartbeat for many years. He has very functional and says goes walking with his occasionally up a hill and he has no symptoms of significant exertional chest pain or shortness of breath. He denies any heart failure symptoms. He said he monitored his blood pressure for about a month and half in the blood pressures were very well controlled at systolic 120-130. He denies any symptoms of claudication. Echocardiogram done recently showed normal LV ejection fraction with moderate left atrial enlargement without any significant valvular abnormality. [facility] Medical History Constipation Overweight (BMI 25.0-29.9) Glaucoma Benign essential microscopic hematuria Lumbar degenerative disc disease Anemia Pure hypercholesterolemia Surgical History Hx of right inguinal hernia repair (07/16/22) Hx of basal cell carcinoma excision (~2020) History of colonoscopy History of tonsillectomy and adenoidectomy History of hemicolectomy History of inguinal hernia repair Family History Father CVD (cardiovascular disease) Mother CVD (cardiovascular disease) Social History Housing: House Are you a primary transitions rn care coordinator to a significant other at home: No Do you presently have visiting nurse or other home services: No Alcohol intake: current Alcohol intake frequency: 0-2 drinks per day Alcohol type: beer and wine Patient Tobacco Use Status: Former Tobacco user Tobacco use type: Cigarette Years Smoked: 15 e-Cigarette/Vaping Use: Never Used Second Hand Smoke Exposure: Yes service: Yes Current occupational status: retired Cognitive needs: No Hearing needs: No Vision needs: Yes (Reading glasses) Review of Systems Const Denies chills, Denies fatigue, Denies fever(s), Denies frequent falls, Denies weakness, Denies weight gain and Denies weight loss Eyes Denies loss of vision ENT Denies dizziness Card Denies chest pain, Denies leg edema, Denies lightheadedness, Denies palpitations, Denies dyspnea, Denies dyspnea on exertion, Denies orthopnea and Denies other (loss of consciousness) Resp Denies cough, Denies dyspnea, Denies dyspnea on exertion and Denies wheezing GI Denies hematochezia and Denies change in stool character Denies dysuria and Denies urinary frequency Musc Denies abnormal gait, Denies muscle weakness, Denies numbness, Denies radiating pain into limb and Denies tingling Skin/Breast Denies nail changes and Denies rash Neuro Denies abnormal gait, Denies dizziness, Denies frequent falls, Denies loss of vision, Denies memory loss, Denies numbness, Denies tingling and Denies weakness Psych Denies depression and Denies memory loss Endo Denies fatigue and Denies palpitations Ojhan/Lymph Reports easy bruising and Reports other (anemia) Aller/Immun Denies wheezing Physical Exam Vital Signs: Last Vital Signs Pulse 71 03/29/24 09:11 BP 136/75 03/29/24 09:11 BMI result Body Mass Index 24.5 Const General: cooperative, comfortable, no acute distress, well developed, alert, awake and Physically active Nutritional Appearance: well nourished and thin Orientation/consciousness: patient oriented x3 Limitations: no limitations HEENT Head: Yes normocephalic and Yes atraumatic Neck Neck: Yes trachea midline, Yes supple and Yes no JVD Resp Effort & Inspection: normal respiratory effort Auscultation: clear to auscultation bilaterally Cardio Jugular venous distension: no JVD Palpation: normal PMI Rate: regular rate Rhythm: abnormal rhythm with ectopic beats Heart sounds: S1 normal heart sound present, S2 normal heart sound present, no click, no gallops, no murmurs and no rubs GI Auscultation: normal bowel sounds Skin General skin exam: no rashes or lesions noted and ecchymosis Neuro General: patient oriented x3 and no focal motor deficits Extrem General: Yes no clubbing, cyanosis or edema Psych Appearance: grossly normal Office Procedures EKG Details: EKG shows normal sinus rhythm with PVCs as well as PVC without any pathologic Q- waves with nonspecific T-wave changes [id number], Complete Assessment & Plan Assessment & Plan (1) Orthostasis: Code(s): I95.1 - Orthostatic hypotension Category: Medical Plan: Patient with symptoms highly suggestive of orthostatic hypertension mostly happening when he is changing his position to upright positioning. We discussed the mechanism of orthostatic hypotension. Currently he has not had any syncopal episode. Although we discussed about orthostatic precautions and assuming supine or sitting position if he gets severely symptomatic to avoid a fall/syncopal episode. He understands agrees. Management of this was discussed. I have advised him to increase his fluid intake gradually up to up to 60 oz. he said he is going to try. I would avoid using medications at this point time given his borderline blood pressure and tendency of these medicines to cause hypertension. This was discussed with him. He is advised to call me with worsening symptoms. (2) Cardiac arrhythmia: Code(s): I49.9 - Cardiac arrhythmia, unspecified Category: Medical Qualifiers: Arrhythmia type: unspecified cardiac arrhythmia Qualified Code(s): I49 .9 - Cardiac arrhythmia, unspecified Plan: Noted to have frequent PVCs on his EKG. Will need to determine frequency. If more than 10% will probably require treatment with a beta-anni to reduce frequency she will reduce development of cardiomyopathy process. Also suggest workup for myocardial ischemia given his high risk with history of h yperlipidemia, family history to evaluate for underlying significant coronary disease that may impact prognosis. This was discussed with him. He understands agrees. Follow up in the clinic in 1 year's time, sooner p.r.n.. Thank you for allowing me to partake in his care Orders: Orders ECG 3 day holter monitor Today I49.9 - Cardiac arrhythmia, unspecified CA stress test Today I49.9 - Cardiac arrhythmia, unspecified NM cardiolite stress test 2 Weeks I49.9 - Cardiac arrhythmia, unspecified, R07.9 - Chest pain, unspecified Coding Level of Care Code New Pt Level 4 (63654) Diagnoses Orthostasis I95.1 Cardiac arrhythmia, unspecified cardiac arrhythmia type I49.9 Arrhythmia type: unspecified cardiac arrhythmia CPT Codes EKG - CPT: 63009-[id number], Complete ([id number])
[2024-03-29 09:09] VITALS: BP 145/78; PULSE 64
[2024-03-29 09:11] VITALS: BP 136/75; PULSE 71
== END 2024-03-29 09:34 | disposition home or self-care (01) ==
PROVIDERS: PCP Internal Medicine; Visit Provider Internal Medicine Cardiovascular Disease
DX: I95.1 Orthostatic hypotension (principal); I49.3 Ventricular premature depolarization
CPT/HCPCS: 93010; 99214

== ENCOUNTER → 2024-03-29 08:51 | Outpatient (BNVA) | payer MEDICARE, BC, SELFPAY | PROVIDERS: PCP Internal Medicine; Visit Provider Internal Medicine Cardiovascular Disease | DX: I10 Essential (primary) hypertension (principal); I95.1 Orthostatic hypotension; I49.9 Cardiac arrhythmia, unspecified; R07.9 Chest pain, unspecified | CPT/HCPCS: 93005; 99212 ==

== ENCOUNTER → 2024-05-10 07:42 | Outpatient (REF) | payer MEDICARE, BC, SELFPAY ==
--- NOTE | ~2024-05-10 | NM_ITS ---
EXERCISE MYOCARDIAL PERFUSION STUDY INDICATION: Cardiac arrhythmias, assess for coronary disease and ischemia TECHNIQUE: The patient was brought in for an exercise perfusion study on 05/10/2024. Patient performed exercise as per Nicholas protocol and was injected 25 mCi of sestamibi once target heart rate was achieved. Images were obtained using the SPECT gamma camera interlaced with the gating device. Images were obtained in supine position. Resting perfusion study was performed on 05/11/2024. Patient was administered 25 mCi of sestamibi intravenously at rest. Images were then obtained in supine position. Total DLP 128 mGy-cm. Images were processed with the software and compared side to side in short axis, horizontal long axis and vertical long axis views. FINDINGS: Raw aquisition reviewed. Arms by the patient's side. The stress perfusion study showed reduced tracer uptake in the distal part of inferior wall. No significant change with CT attenuation correction. The gated study shows normal LV systolic function with calculated LVEF of 69%. LV cavity is normal in size. The gated study shows normal wall thickening and contraction of segments. Resting study shows decreased tracer uptake in the distal part of inferior wall. No significant change in CT attenuation correction. Gating at rest reveals normal wall motion with ejection fraction at 67%. The findings are consistent with fixed distal inferior perfusion defect that could be from diaphragmatic attenuation artifact. No clear reversible defects. NM/NM cardiolite stress test IMPRESSION: 1. Myocardial perfusion imaging study shows fixed distal inferior defect suspected to be from diaphragmatic attenuation artifact. No clear evidence of ischemia or infarction. 2. Gated LVEF is 69% during stress and 67% during rest. 3. Transient ischemic dilatation not present. EKG component of the test reported separately. Electronically signed by: Theodore Moreno MD 05/12/2024 12:35 PM EDT
--- NOTE | 2024-05-10 07:45 | HM_ITS ---
* Total monitoring time 3 days. * Underlying rhythm is sinus with an average rate of 65/Min. * Rare supraventricular ectopy. Brief runs. Longest 30 beats. * Rare ventricular ectopy. Multiple morphologies. One run of 7 beats, monomorphic. * No significant pauses or high-grade AV blocks. * No patient markers or diary events. MTDD
--- NOTE | 2024-05-10 07:45 | CA_ITS ---
Acquisition Time: 2024-05-10 08:00:45 Total Exercise Time: 00:04:31 Test Indications: LIGHTHEADEDNESS, PVC'S Medications: Protocol: DALJIT Max HR: 171 BPM 119% of Pred: 143 BPM Max BP: 178/074 mmHG Max Work Load: 5.0 METS Exercise stress test with exercise 4 min 31 sec of Daljit protocol ( speed reduced in stage 2), achieving > 110% MPHR, without anginal symptoms, with frequent PVCs at baseline and in recovery with short ventricular runs - longest 3 beats, less during exercise, with very frequent PACs during exercise ( at times, cant exclude brief Atrial fibrillation) , with normotensive response to exercise, with EKG changes that meet criteria for ischemia that improves to baseline in recovery. Nuclear images pending. Test reviewed with Dr Genao Referred By: Jasson Lynch Overread By: BRET COTTRELL
== END ==
LOC: HO.CARD 07:42
PROVIDERS: PCP Internal Medicine; Visit Provider Internal Medicine Cardiovascular Disease
DX: R07.9 Chest pain, unspecified (principal); I49.9 Cardiac arrhythmia, unspecified
CPT/HCPCS: 78452; 93017; 93242; A9500

== ENCOUNTER → 2024-05-10 07:45 | Outpatient (BNV) | payer MEDICARE, BC, SELFPAY | PROVIDERS: PCP Internal Medicine; Visit Provider Nurse Practitioner Family | DX: I47.10 Supraventricular tachycardia, unspecified (principal) | CPT/HCPCS: 78452; 93016; 93018; 93244 ==

== ENCOUNTER 2024-05-20 09:34 | Outpatient (REF) | payer MEDICARE, BC, SELFPAY ==
[2024-05-20 10:14] LABS: MANUAL DIFF FLAG NO
[2024-05-20 10:58] LABS: Basophils Absolute Auto 0.1 X10*3/uL (0.0-0.2); Basophils Percent Auto 1.1 % (0-2); Eosinophils Absolute Auto 0.1 X10*3/uL (0.0-0.4); Eosinophils Percent Auto 1.3 % (0-4); Hematocrit 39.6 % (42.0-52.0); Hemoglobin 13.3 g/dl (14.0-18.0); Imm Gran Abs Auto 0.01 X10*3/uL (0.00-0.03); Imm Gran Pct Auto 0.1 % (0.0-0.4); Lymphocytes Absolute Auto 1.6 X10*3/uL (1.2-4.9); Mean Corpuscular HGB Conc 33.6 g/dl (31.0-36.0); Mean Corpuscular Hemoglobin 29.4 pg (27.0-33.0); Mean Corpuscular Volume 87.6 fL (80.0-98.0); Mean Platelet Volume 10.4 fL (9.4-12.4); Monocytes Absolute Auto 0.6 X10*3/uL (0.1-1.2); Monocytes Percent Auto 7.8 % (2-11); Neutrophils Absolute Auto 5.2 x10*3/uL (2.0-8.3); Neutrophils Percent Auto 68.7 % (45-73); Platelet Count 283 X10*3/uL (160-400); Red Blood Count 4.52 X10*6/uL (4.60-5.80); Red Cell Distribution Width 13.1 % (11.0-16.0); White Blood Count 7.5 X10*3/uL (4.8-10.8)
[2024-05-20 11:14] LABS: Appearance Urine Clear; Color Urine Yellow; Glucose Urine UA Negative (Negative); Leukocyte Esterase Urine Negative (Negative); Nitrite Urine Negative (Negative); PH 6.5 (5.0-9.0); Specific Gravity - Urine <= 1.005 (1.005-1.025); Urine Blood Negative (Negative); Urine Ketones Trace mg/dL (Negative); Urine Protein Negative (Neg-Trace)
[2024-05-20 12:06] LABS: Alanine Aminotransferase 17 U/L (0-40); Alkaline Phosphatase 123 U/L (39-117); Anion Gap 12 (12-20); Aspartate Amino Transferase 26 U/L (5-37); Bilirubin Total 0.7 mg/dL (0.0-1.0); Blood Urea Nitrogen 16 mg/dL (9-16); Calcium 9.7 mg/dL (8.4-10.2); Carbon Dioxide 24 mmol/L (22-29); Chloride 108 mmol/L (96-108); Cholesterol 175 mg/dL (<200); Estimated Glomerular Filt Rate > 60; Glucose Fasting 75 mg/dL (60-99); HDL Cholesterol 60 mg/dL (>40); LDL Cholesterol Calculated 104 mg/dL (<100); Potassium 4.3 mmol/L (3.3-5.1); Sodium 140 mmol/L (135-145); TSH reflex Free T4 1.28 uIU/mL (0.32-4.0); Total Protein 7.1 g/dL (6.5-8.0); Triglycerides 57 mg/dL (<150); Vitamin D 25-OH Total 63.6 ng/mL (>30)
== END 2024-05-20 09:35 | disposition home or self-care (01) ==
LOC: HO.LAB 09:34
PROVIDERS: PCP Internal Medicine; Visit Provider Internal Medicine
DX: D64.9 Anemia, unspecified (principal); R30.0 Dysuria; E55.9 Vitamin D deficiency, unspecified; E78.00 Pure hypercholesterolemia, unspecified
CPT/HCPCS: 36415; 80053; 80061; 81003; 82306; 84443; 85025

== ENCOUNTER 2024-05-25 08:53 | Outpatient (AMB) | payer MEDICARE, BC, SELFPAY ==
[2024-05-25 08:54] VITALS: BP 118/72; PULSE 61; O2SAT 97; BMI 24.5
--- NOTE | 2024-05-25 08:54 | A.OFFPC_ITS ---
Vital Signs 05/25/24 08:54 Height 5 ft 8 in Weight 161 lb 2 oz BMI 24.5 BP 118/72 Blood Pressure Location Lt brachial Position Sitting Pulse 61 Pulse Source Pulse Oximeter Pulse Oximetry (%) 97 Oxygen Delivery Method Room Air Intake Visit Reasons: hyperlipidemia, orthostasis, vitamin D deficiency Associate Doctor Required: No Accompanied by: Self / Same As Patient Allergies No Known Allergies Allergy (Mild, Verified 05/25/24 09:12) NKA Medication List - Last Reconciled 05/25/24 by Too Mcgee MD atorvastatin 40 mg PO DAILY cholecalciferol (vitamin D3) 25 mcg PO .every other day latanoprost 0.005% (Xalatan) 1 drp ophthalmic (eye) BEDTIME multivitamin 1 tab PO DAILY omega-3 fatty acids (Fish Oil Concentrate) 1,000 mg PO DAILY Tobacco use date assessed: 05/25/24 Fall risk assessment: 1 Fall in past year Last assessed Fall Risk: 05/25/24 Dental Screening Dental Screen Date: 05/25/24 Did you have a dental visit in the last 12 months?: Yes Did you have a dental problem in the last 6 months where you did not have access to dental care?: No Was dental information given to patient?: Patient has dentist HPI hyperlipidemia, orthostasis, vitamin D deficiency HPI Details Patient comes in today for his follow up visit States that he feels okay He denies any headaches or dizziness Denies any chest pains, no SOB No nausea/vomiting, no abdominal pain No change in bowel habits noted He had his follow up labs done a few days ago - to discuss his results [facility] Medical History Constipation Overweight (BMI 25.0-29.9) Glaucoma Benign essential microscopic hematuria Lumbar degenerative disc disease Anemia Pure hypercholesterolemia Surgical History Hx of right inguinal hernia repair (07/16/22) Hx of basal cell carcinoma excision (~2020) History of colonoscopy History of tonsillectomy and adenoidectomy History of hemicolectomy History of inguinal hernia repair Family History Father CVD (cardiovascular disease) Mother CVD (cardiovascular disease) Social History Housing: House Are you a primary healthcare or medical to a significant other at home: No Do you presently have visiting nurse or other home services: No Alcohol intake: current Alcohol intake frequency: 0-2 drinks per day Alcohol type: beer and wine Patient Tobacco Use Status: Former Tobacco user Tobacco use type: Cigarette Years Smoked: 15 e-Cigarette/Vaping Use: Never Used Second Hand Smoke Exposure: Yes service: Yes Current occupational status: retired Cognitive needs: No Hearing needs: No Vision needs: Yes (Reading glasses) Questionnaire PHQ-9 Over the last 2 weeks, how often have you been bothered by any of the following problems? 1. Little interest or pleasure in doing things: not at all 2. Feeling down, depressed, or hopeless: not at all 3. Trouble falling or staying asleep, or sleeping too much: not at all 4. Feeling tired or having little energy: not at all 5. Poor appetite or overeating: not at all 6. Feeling bad about yourself - or that you are a failure or have let yourself or your family down: not at all 7. Trouble concentrating on things, such as reading the newspaper or watching television: not at all 8. Moving or speaking so slowly that other people could have noticed. Or the opposite - being so fidgety or restless that you have been moving around a lot more than usual: not at all 9. Thoughts that you would be better off or of hurting yourself in some way: not at all Total score: 0 Depression Screening Interpretation: Negative Depression Screening Done: Yes 08609 - PHQ-9 Billing: Yes Source: Developed by Drs. Gordon Castellanos, Yesenia Ireland, Timothy Edmonds and colleagues, with an educational kandice from [email or web address]. Thrive Questionnaire Date Thrive assessed: 05/25/24 I am a: Patient What is your living situation today?: I have a steady place to live Within the past 12 months, did the food you bought not last and you didn't have the money to get more?: Never true Within the past 12 months, did you worry whether your food would run out before you got money to buy more?: Never true Do you have trouble paying for medicines?: No Do you have trouble getting transportation to medical appointments?: No Do you have trouble paying your heating and electricity bill?: No Do you have trouble taking care of your child, family member or friend?: No Do you have trouble with day-to-day activities such as bathing, preparing meals, shopping, managing finances, etc.?: No Are you currently unemployed and looking for a job?: No Are you interested in more education?: No Please select the resources that you would like help with: None Currently or been in a relationship where the following occur: No concerns reported THRIVE Score: 0 AUDIT C Alcohol Use Questionnaire (AUDIT-C) 1. How often do you have a drink containing alcohol?: 4 or more times a week 2. How many drinks containing alcohol do you have on a typical day when you are drinking?: 1 or 2 3. How often do you have six or more drinks on one occasion?: Never Total Score: 4 Score Reviewed/Action Taken: Yes FELA-7 AMB Questionnaire FELA-7 Date FELA - 7 assessed: 05/25/24 Feeling nervous, anxious, or on edge: 0 = Not at all Not being able to stop or control worryin = Not at all Worrying too much about different things: 0 = Not at all Trouble relaxin = Not at all Being so restless that it is hard to sit still: 0 = Not at all Becoming easily annoyed or irritable: 0 = Not at all Feeling afraid as if something awful might happen: 0 = Not at all Total FELA-7 score (0-4 normal; 5-9 mild; 10-14 moderate; 15-21 severe): 0 Source: Developed by Drs. Gordon Castellanos, Yesenia Ireland, Timothy Edmonds and colleagues, with an educational kandice from [employer]. Review of Systems Const Denies chills, Denies fatigue, Denies fever(s) and Denies headache(s) ENT Reports as per HPI, Denies dysphagia, Reports dizziness (occasionally/rarely now), Denies otalgia, Denies headache(s), Denies neck pain, Denies odynophagia and Denies sore throat Card Denies chest pain, Denies syncope, Denies irregular heart rhythm, Denies palpitations and Denies dyspnea Resp Denies chest congestion, Denies cough and Denies dyspnea GI Denies abdominal pain, Denies constipation, Denies dysphagia, Denies diarrhea, Denies nausea, Denies odynophagia and Denies vomiting Denies difficulty urinating, Denies dysuria and Denies urinary frequency Musc Reports back pain (on and off - mostly tolerable), Denies arthralgias and Denies neck pain Skin/Breast Denies rash Neuro Reports dizziness (occasionally/rarely now), Denies syncope and Denies headache(s) Endo Denies fatigue and Denies palpitations Physical exam (Primary Care) Vital Signs: Last Vital Signs Pulse 61 05/25/24 08:54 BP 118/72 05/25/24 08:54 Pulse Ox 97 05/25/24 08:54 Oxygen Delivery Method Room Air 05/25/24 08:54 BMI result Body Mass Index 24.5 Tobacco/Smoking Status: Tobacco use Status Tobacco use date assessed 05/25/24 05/25/24 08:56 Patient Tobacco Use Status Former Tobacco user 05/25/24 08:56 Tobacco use type Cigarette 05/25/24 08:56 e-Cigarette/Vaping Use Never Used 05/25/24 08:56 PHQ-9: PHQ-9 Score PHQ-9: Total score 0 05/25/24 09:21 Depression Screening Interpretation: Negative Thrive Assessment: Date of Thrive Assessment Date Thrive assessed 05/25/24 05/25/24 08:56 Currently or been in a relationship where the following occur: No concerns reported Const General: no acute distress and alert HENMT Ears: TM's normal bilaterally and EAC's normal Throat: Yes posterior oropharynx normal and Yes tonsils normal Neck Neck: Yes no lymphadenopathy and Yes supple Thyroid: Thyroid normal Resp Auscultation: clear to auscultation bilaterally, no rales and no wheezes Cardio Rate: regular rate Rhythm: abnormal rhythm with ectopic beats Heart sounds: no murmurs GI Palpation (GI): Soft to palpation and nontender Auscultation: normal bowel sounds General: Yes no CVA tenderness Back/Spine/Pelvis Back: no CVA tenderness Thoracic/Lumbar Spine: lumbar spinal tenderness (mild) Skin Rashes: no rashes Extrem General: Yes no clubbing, cyanosis or edema Office Procedures Flu Questionnaire Does the patient have a severe egg allergy?: No Immunizations Fluarix Triv [id number] (PF) 45 mcg (15 mcg x 3)/0.5 mL IM syringe Performing Provider: Too Mcgee MD [facility] Documented (not given) by: OSKAR Garcia on 05/25/24 09:12 Reason Not Given: Received Previously Results Reviewed Results Reviewed: Laboratory Tests 05/20/24 05/20/24 10:11 10:13 WBC 7.5 Hgb 13.3 L Hct 39.6 L Plt Count 283 Sodium 140 Potassium 4.3 Creatinine 1.05 Estimated GFR > 60 Fasting Glucose 75 Calcium 9.7 AST 26 ALT 17 Triglycerides 57 Cholesterol 175 LDL Cholesterol, Calc 104 H HDL Cholesterol 60 25-OH Vitamin D Total 63.6 TSH 1.28 Ur Specific [place] <= 1.005 Urine Protein Negative Urine Glucose (UA) Negative Urine Blood Negative Urine Nitrite Negative Ur Leukocyte Esterase Negative Coding Level of Care Code Est Pt Level 4 (15069) Diagnoses Pure hypercholesterolemia E78.00 Anemia, unspecified type D64.9 Anemia type: unspecified type Orthostasis I95.1 Degeneration of intervertebral disc of lumbar region with discogenic back pain M51.360 Disc-related pain type: discogenic back pain only Constipation, unspecified constipation type K59.00 Constipation type: unspecified constipation type Benign essential microscopic hematuria R31.1 Glaucoma, unspecified glaucoma type, unspecified laterality H40.9 Glaucoma type: unspecified Laterality: unspecified laterality Additional Codes PHQ-9 - 57743 - PHQ-9 Billing: Yes ([id number]) Assessment & Plan Assessment & Plan (1) Pure hypercholesterolemia: Code(s): E78.00 - Pure hypercholesterolemia, unspecified Category: Medical Plan: Results of his labs done a few days ago reviewed and discussed with patient - he is advised that his total and LDL cholesterol numbers have gone up slightly from previous Reinforced low cholesterol diet Continue Atorvastatin 40 mg QD Will recheck his labs and fasting lipids in 6 months for follow up (2) Anemia: Code(s): D64.9 - Anemia, unspecified Category: Medical Qualifiers: Anemia type: unspecified type Qualified Code(s): D64.9 - Anemia, unspecified Plan: Corrected/stable - will continue to monitor his CBC regularly (3) Orthostasis: Code(s): I95.1 - Orthostatic hypotension Category: Medical Plan: Patient is advised again that he is not on any medications that would affect his blood pressure and that his BP log that he brought in today shows excellent BP control, with his systolic BP consistently around 120 to 130 mm States that he has been more aware of trying to stay hydrated and in doing so, has noticed that his orthostatic symptoms have not been occurring as often lately He had an EKG done, which was mostly normal and his CT angio of the head and neck done back in 04/2021 revealed no significant stenosis Echocardiogram done back in November 2023 revealed normal LV ejection fraction with moderate left atrial enlargement without any significant valvular abnormality 3 day Holter monitor and cardiac stress testing done recently all came back normal He was seen by cardiology and reassured of his normal findings and has been reminded to try to stay adequately hydrated as best as he can (4) Lumbar degenerative disc disease: Code(s): M51.36 - Other intervertebral disc degeneration, lumbar region Category: Medical Qualifiers: Disc-related pain type: discogenic back pain only Qualified Code(s): M51.360 - Other intervertebral disc degeneration, lumbar region with discogenic back pain only Plan: Reinforced activity and weight-lifting restrictions Lumbar spine x-rays done back in April 2017 showed (+) significant lumbar spondylosis, especially at L1-L2 Patient states that his lower back has not been bothering him too often lately and he continues to be careful/aware with what he does activity-andersen (5) Constipation: Code(s): K59.00 - Constipation, unspecified Category: Medical Qualifiers: Constipation type: unspecified constipation type Qualified Code(s): K59.00 - Constipation, unspecified Plan: States that his symptoms have improved and are well-controlled - takes some OTC stool softener as needed Reinforced increased oral fluids and dietary fiber (6) Benign essential microscopic hematuria: Code(s): R31.1 - Benign essential microscopic hematuria Category: Medical Plan: Asymptomatic - his last urine sample came back showing no RBCs in the urine Will continue to monitor routinely (7) Glaucoma: Code(s): H40.9 - Unspecified glaucoma Category: Medical Qualifiers: Glaucoma type: unspecified Laterality: unspecified laterality Qualified Code(s): H40.9 - Unspecified glaucoma Plan: Follow up with ophthalmology as scheduled Plan Follow up in 6 months Orders: Orders Complete Blood Count Auto Diff 05/20/24 D64.9 - Anemia, unspecified Comprehensive [place]. Panel Fast 05/20/24 E78.00 - Pure hypercholesterolemia, unspecified TSH reflex Free T4 05/20/24 E78.00 - Pure hypercholesterolemia, unspecified UA CC w/rflx Micro + Cult 05/20/24 R30.0 - Dysuria Vitamin D 25-OH Total 05/20/24 E55.9 - Vitamin D deficiency, unspecified Complete Blood Count Auto Diff 6 Months D64.9 - Anemia, unspecified Comprehensive [place]. Panel Fast 6 Months E78.00 - Pure hypercholesterolemia, unspecified Lipid Panel 6 Months E78.00 - Pure hypercholesterolemia, unspecified TSH reflex Free T4 6 Months E78.00 - Pure hypercholesterolemia, unspecified Vitamin B12 and Folate 6 Months E53.8 - Deficiency of other specified B group vitamins Lipid Panel 05/20/24 E78.00 - Pure hypercholesterolemia, unspecified Influenza [id number] Immunization Today Z23 - Encounter for immunization UA CC w/rflx Micro + Cult 6 Months R30.0 - Dysuria Vitamin D 25-OH Total 6 Months E55.9 - Vitamin D deficiency, unspecified
== END 2024-05-25 09:36 | disposition home or self-care (01) ==
LOC: HO.HMCH 08:54
PROVIDERS: PCP Internal Medicine; Visit Provider Internal Medicine
DX: E78.00 Pure hypercholesterolemia, unspecified (principal); D64.9 Anemia, unspecified; I95.1 Orthostatic hypotension; M51.360 Other intervertebral disc degeneration, lumbar region with discogenic back pain only; K59.00 Constipation, unspecified; R31.1 Benign essential microscopic hematuria; H40.9 Unspecified glaucoma; Z23 Encounter for immunization

== ENCOUNTER → 2024-05-25 08:53 | Outpatient (BNVA) | payer MEDICARE, BC, SELFPAY | PROVIDERS: PCP Internal Medicine; Visit Provider Internal Medicine | DX: E78.00 Pure hypercholesterolemia, unspecified (principal); D64.9 Anemia, unspecified; I95.1 Orthostatic hypotension; M51.360 Other intervertebral disc degeneration, lumbar region with discogenic back pain only; K59.00 Constipation, unspecified; R31.1 Benign essential microscopic hematuria; H40.9 Unspecified glaucoma | CPT/HCPCS: 90471; 96127; 99212 ==

== ENCOUNTER 2024-11-21 06:29 | Outpatient (REF) | payer MEDICARE, BC, SELFPAY ==
--- OUTSIDE RECORDS SUMMARY | 2024-11-21 06:32 | XMS_ITS | Continuity of Care Document ---
Author Name [facility] Organization [facility] Care Team Providers Care Bullion Weigher Name Role Phone [facility] Unavailable Unavailable Immunizations Combined list of available immunizations from the Department of Defense and Veterans Affairs facilities. Immunization Series Date Given Administered By Site Reaction Lot Number [id number] Code Drug Coil Builder Status Comments Source COVID-19 (MODERNA), MRNA, LNP-S, PF, 100 MCG/0.5 ML DOSE 2 2020 207 complet ed MOD; [id number]; IELD COVID-19 (MODERNA), MRNA, LNP-S, PF, 100 MCG/0.5 ML DOSE 1 2020 207 complet ed MOD; [id number]; IELD
--- OUTSIDE RECORDS SUMMARY | 2024-11-21 06:32 | XMS_ITS ---
Author Name [facility] Organization Unknown History of Medication Use Medication Directions Dispensed Refills Start Date End Date Stat Kenalog 40 mg/mL suspension for injection Take 1 mL by injection route. 02/10/2023 active atorvastatin 40 mg tablet active cephalexin 500 mg capsule TAKE 1 CAPSULE BY MOUTH EVERY 8 HOURS FOR 4 DAYS TAKE ANTIBIOTIC FOR 4 MORE DAYS active fluocinolone 0.01 % scalp oil and shower cap APPLY TO SCALP, LEAVE ON OVERNIGHT AND SHAMPOO IN THE MORNING active fluorouracil 2 % topical solution APPLY ONE DAY PER WEEK (IE. THURSDAY) AM AND PM TO SUNDAMAGED AREAS ON SCALP FOR 3 MONTHS. active Problems Problem Status Onset Date Problem Type Date of Resoluti on Source Osteoarthritis of right knee joint active 2023-02-10 ProblemAct ENS_AONECT Encounters Encounter Type Encounter Reason Primary Diagnosis Location Date Ambulatory [facility] 02/10/2023 Ambulatory [facility] 02/06/2023 Ambulatory [facility] 02/06/2023
--- OUTSIDE RECORDS SUMMARY | 2024-11-21 06:32 | XMS_ITS | Clinical Summary ---
Author Organization [facility] Address [address] [place] [address] Care Team Providers Care Finance Broker Name Role Phone Too Mcgee MD Primary Care Provider [phone] Allergies No known active allergies Medications Medication Sig Dispensed Refills Start Date End Date Status atorvastatin (LIPITOR) tablet 40 mg 0 09/20/2020 Active latanoprost (XALATAN) 0.005 % ophthalmic solution 0 08/30/2020 Active Perry-3 Fatty Acids (Fish Oil) 1000 MG CAPS Take by mouth. 0 Active vitamin C (ASCORBIC ACID) 250 MG tablet Take 250 mg by mouth daily. 0 Active vitamin D3 (VITAMIN D3) 10 MCG (400 UNIT) tablet Take 400 Units by mouth daily. 0 Active Multiple Vitamin (MULTI VITAMIN DAILY PO) Take by mouth. 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 Traumatic tear of medial men iscus of knee, right, initial encounter 11/29/2020 Family History Medical History Relation Name Comments Hypertension Mother Relation Name Status Comments Mother Social History Tobacco Use Types Packs/Day Years Used Date Smoking Tobacco: Never Assessed Sex and Gender Information Value Date Recorded Sex Assigned at Not on file Gender Identity Not on file Sexual Orientation Not on file Job Start Date Occupation Industry Not on file Not on file Not on file Last Filed Vital Signs Vital Sign Reading Time Taken Comments Blood Pressure - - Pulse - - Temperature - - Respiratory Rate - - Oxygen Saturation - - Inhaled Oxygen Concentration - - Weight 79.4 kg (175 lb) 01/25/2021 8:42 AM EDT Height 175.3 cm (5' 9 ) 01/25/2021 8:42 AM EDT Body Mass Index 25.84 01/25/2021 8:42 AM EDT Plan of Treatment Health Maintenance Due Date Last Done Comments Hepatitis C Screening 1945 COVID-19 Vaccine (#1) 05/07/1946 Depression Screening 1958 Preventative Health Evaluation 1964 DTap / Tdap / Td (1 - Tdap) 1965 Shingrix-Zoster Vaccine (1 of 2) 1996 Fall Risk Assessment 11/06/2011 Pneumococcal Vaccine (1 of 1 - PCV) 11/06/2011 RSV Adult > 60+ Yrs or Pregn ant (1 - 1-dose 75+ series) 2021 Influenza Vaccine (#1) 2024 Hepatitis B Vaccines Aged Out No long er eligible based on patient's age to complete this topic RSV Ped < 20 months Aged Out No longe r eligible based on patient's age to complete this topic Care Teams Finance Broker Relationship Specialty Start Date End Date Too Mcgee MD [address] [place] [address] Dr Tressa [place] [id number] PCP - General Internal Medicine 11/22/20
--- OUTSIDE RECORDS SUMMARY | 2024-11-21 06:32 | XMS_ITS | Data Portability ---
Author Organization [place] [facility] Freda Wagner AONE [place] Address [address] [facility] [address] [place] [address] Assessment Encounter Date Assessment Date Assessment LastModified by Organization Details LastModified Time 02/10/2023 02/10/2023 Pleasant 77-year-old male degenerative arthritis of the right knee. I had a discussion with the patient guarding management regarding movement options. He opted for cortisone injection of the right knee at today's visit. After verbal consent was obtained. The procedure was carried out on the right knee. The patient tolerated the procedure well. Aftercare instructions were discussed in detail. Follow-up visit 3 months time for repeat clinical exam. I did review his radiographs with him in detail and he agrees with the above-noted plan. Should his symptoms not improve or worsen he should contact my office. Indirect care and treatment in conjunction with Dr. Metz Additional treatment plan discussed with the patient in detail included the following; - Provider focused nonsteroidal anti-inflammator y regimen (discussed were the pros, cons, benefits and risks as well as any black box warnings) in patients over 60 years old they should be very cautious in taking these medications due to potential decreased kidney function and or elevated blood pressure. - Analgesic pain medication for pain suppression (discussed were the pros, cons, benefits and risks as well as any black box warnings) - The use of topical pain relieving medication were discussed - The use of ice to decrease inflammation and pain - The use of assistive ambulatory devices for ambulation and fall prevention - Formal specific guided physical therapy program I reviewed my findings at length with the patient today. ? ? ?We discussed the nature and etiology of this problem along with current treatment options. We discussed the expected course and outcomes and what to expect. We also discussed risks and benefits. ? ? ? All of their questions were answered today, and there was exhibited understanding and comprehension of all that was discussed. Time Spent: 10 minutes were spent reviewing previous imaging and charting. ? ? ?10 minutes were spent obtaining patient history. ? ? ?5 minutes were spent on physical exam. ? ? ?5? ? ?minutes were spent explaining diagnosis and assessment. Today's documentation was made using voice recognition software. This note may contain grammatical errors secondary to the software. Not available 02/10/2023 07:47:24 Plan of Treatment Reminders Order Date Submit Date Provider Last Modified By Organization Details Last Modified Time Details Appointments None recorded. Lab None recorded. Referral None recorded. Procedures None recorded. Surgeries None recorded. Imaging XR, knee, 4 or more view 2022 023 [email or web address], [address], [place] [address], [place], [address], 11:26:20 Medication Orders Kenalog 40 mg/mL suspension for injection [address]/Pharmacy #[id number], [address] [place], [address], 3 10:54:44 lidocaine (PF) 10 mg/mL (1 %) injection solution [address]/Pharmacy #[id number], [address] [place], [address], 3 10:54:44 Patient TargetsNo targets recorded. Patient Instructions Encounter Date Encounter Id Patient Instructions Last Modified By Organization Details Last Modified Time 02/10/2023 You have been provided with a cortisone injection in order to reduce the pain and inflammation that you are experiencing. The injection consists of two medications. Cortisone (an anti-inflammatory that will take 48-72 hours to take effect) and Lidocaine (a numbing agent that will last 2-3 hours). Please note that not everyone will have a lasting response following the injection. PATIENT INSTRUCTIONS Once the Lidocaine wears off, you may have an increase in your pain. I recommend icing the affected area for 20 minutes 3-4 times per day. It is recommended that you refrain from any high level activities using the joint or limb that was injected for approximately 24-48 hours. Normal day-to-day activities are generally not a problem. POSSIBLE SIDE EFFECTS Individuals with dark complexions may experience some skin discoloration locally at the site of the injection. There is the possibility of an increase in discomfort within 48 hours following the injection. This is called a ? f lare? . To help minimize the chances of this, please see the post-injection instructions above. There is a less than 1% chance of an infection. If you notice any signs of infection (redness, warmth, drainage, fever greater than 100 degrees) please call our office or contact us through the portal [facility]. Not available 02/10/2023 07:47:27 Three-view x-ray right knee reveals mild degenerative change predominantly in the lateral compartment with osteophyte formation subchondral sclerosis, patellofemoral joint space narrowing no acute bony abnormality. Not available 02/10/2023 10:55:17 Reason for Referral None Reported. Problems Name Problem SNOMED Code Status Onset Date Resolution Date Notes Provider Name and Address Organization Details Recorded Time Osteoarthri tis of right knee joint 9675863879713 00 Active 2022 PILI DIMAS PA-C [address] [facility],[place] [address], [place], [address], [place] [facility] 3 07:47:44 Problem Notes None recorded. Procedures Surgical History Date Name Laterality Status Provider Name and Address Organization Details Recorded Time 3 Knee Joint/Bursa Asp & Inj completed PILI DIMAS PA-C [address] [facility],[address], [place], [address], [place] [facility] 02/10/2023 10:55:32 8 excision of tumor of liver completed [facility] 02/10/2023 13:49:44 8 hernia repair completed [facility] 02/10/2023 13:49:12 Imaging Results None recorded. Procedure Notes None recorded. Medical Equipment None Reported. Allergies No known drug allergies Medications Name Sig Start Date Stop Date Status Note LastModified by Organization Details LastModified Time latanoprost 0.005 % eye drops 02/10 completed Not Available Not Available Not Available atorvastati n 40 mg tablet active Not Available Not Available Not Available fluorouraci l 2 % topical solution APPLY ONE DAY PER WEEK (IE. THURSDAY) AM AND PM TO D AREAS ON SCALP FOR 3 MONTHS. active Not Available Not Available No t Available Kenalog 40 mg/mL suspension for injection Take 1 mL by injection route. 2022 active Not Available Not Available Not Avai lable cephalexin 500 mg capsule TAKE 1 CAPSULE BY MOUTH EVERY 8 HOURS FOR 4 DAYS TAKE ANTIBIOTI C FOR 4 MORE DAYS 02/10 completed Not Available Not Available Not Available oxycodone 5 mg tablet TAKE 1 TABLET ORALLY EVERY 6 HOURS NEEDED FOR PAIN (SCALE SCORE 7-10) 02/10 completed Not Available Not Available Not Available fluocinolon e 0.01 % scalp oil and shower cap APPLY TO SCALP, LEAVE ON OVERNIGHT AND SHAMPOO IN THE MORNING active Not Available Not Available No t Available lidocaine (PF) 10 mg/mL (1 %) injection solution Take 2 mL by injection route. 2022 active Not Available Not Available Not Avai lable cephalexin 750 mg capsule TAKE 1 CAPSULE BY MOUTH EVERY 12 HOURS active Not Available Not Available No t Available Vitals Date Recorded Body height Body mass index (BMI) Body weight Provider Name and Address Organization Details Last Updated DateTime 02/10/2023 175.26 cm 24.4 kg/m2 [address]3027.[address] [place] [facility] 02/10/2023 11:23:36 Social History Question Answer Notes LastModified by Organizat ion Details LastModified Time Tobacco Smoking Status Former Smoker Mary brunner, [place] - [facility] 02/10/2023 13:36:41 What Is Your Level Of Alcohol Consumption? Moderate Information not available 02/10/2023 How Many Times Per Week Do You Consume Alcohol? 5-7 Times Per Week Information not available 02/10/2023 When Did You Quit Smoking? 16+yearssince lastcigarette Information not available 02/10/2023 Do You Use Any Illicit Or Recreational Drugs? No Information not available 02/10/2023 Do You Or Have You Ever Used Any Other Forms Of Tobacco Or Nicotine? No Information not available 02/10/2023 Sex: Unknown Functional Status None recorded. Mental Status None recorded. Family History Relationship Description Onset Age of this Age Resolved Age Notes LastModified by Organization Details LastModified Time Mother Heart disease ries5 Not available 2022 13:19:27 Father Heart disease Not available 2022 13:19:27 Brother Heart disease Not available 2022 13:19:27 Medical History Condition Response Cancer Y Past Encounters Encounter ID Performer Location Encounter Start Date Encounter Closed Date Diagnosis/Indication Diagnosis SNOMED-CT Code Diagnosis ICD10 Code Diagnosis Note JUVENCIO ARAUJO [facility] [address] [address] 02/10/2023 10:27:14 02/10/2023 11:26:20 Pain of right knee joint 1415756314 52796 M25.561 Osteoarthr itis of right knee joint 4401330250 54763 M17.11 Health Concerns Section Related Observation LastModified by Organization Detai ls LastModified Time None Recorded Concern Status LastModified by Organization Details LastModified Time None Recorded Advance Directives Directive None Recorded Payers Encounter Date Sequence Insurance Name Policy Number Policy Galvan Covered Member ID Galvan Member ID Guarantor Name 02/10/2023 2 [place] [employer] Mya Shine [id number] Eduar Shine 02/10/2023 1 MEDICARE B-[place]: [facility] [employer] Eduar Shine [id number] Eduar Shine Notes Date Note Type Note Provider Name and Address Organization Details Recorded Time 02/10/2023 text/html R knee. cortison e 05/09/21. xrays today Pleasant 77-year-old male last seen on the above-noted date and treated at that time. He states he has had intermittent right knee discomfort that is worse with bending and weightbearing. Denies any injury. Denies fevers or chills or warmth overlying the right knee joint here for evaluation treatment. PILI DIMAS PA-C [address] [facility],[address] [place], [address], [place] [facility] 02/10/2023 10:56:04
[2024-11-21 06:48] LABS: MANUAL DIFF FLAG NO
[2024-11-21 07:25] LABS: Appearance Urine Clear; Color Urine Yellow; Glucose Urine UA Negative (Negative); Leukocyte Esterase Urine Negative (Negative); Nitrite Urine Negative (Negative); PH 5.5 (5.0-9.0); Urine Blood Negative (Negative); Urine Ketones Negative (Negative); Urine Protein Negative (Neg-Trace)
[2024-11-21 07:35] LABS: Basophils Absolute Auto 0.1 X10*3/uL (0.0-0.2); Eosinophils Absolute Auto 0.2 X10*3/uL (0.0-0.4); Eosinophils Percent Auto 2.9 % (0-4); Hematocrit 38.3 % (42.0-52.0); Hemoglobin 12.6 g/dl (14.0-18.0); Imm Gran Abs Auto 0.03 X10*3/uL (0.00-0.03); Imm Gran Pct Auto 0.4 % (0.0-0.4); Lymphocytes Absolute Auto 1.7 X10*3/uL (1.2-4.9); Lymphocytes Percent Auto 20.4 % (20-40); Mean Corpuscular HGB Conc 32.9 g/dl (31.0-36.0); Mean Corpuscular Hemoglobin 29.2 pg (27.0-33.0); Mean Corpuscular Volume 88.7 fL (80.0-98.0); Mean Platelet Volume 10.4 fL (9.4-12.4); Monocytes Absolute Auto 0.9 X10*3/uL (0.1-1.2); Neutrophils Absolute Auto 5.3 x10*3/uL (2.0-8.3); Neutrophils Percent Auto 64.3 % (45-73); Platelet Count 281 X10*3/uL (160-400); Red Blood Count 4.32 X10*6/uL (4.60-5.80); Red Cell Distribution Width 13.2 % (11.0-16.0); White Blood Count 8.2 X10*3/uL (4.8-10.8)
[2024-11-21 07:56] LABS: Alanine Aminotransferase 21 U/L (0-40); Albumin Level 3.9 g/dL (3.5-5.0); Alkaline Phosphatase 114 U/L (39-117); Anion Gap 12 (12-20); Aspartate Amino Transferase 27 U/L (5-37); Bilirubin Total 0.4 mg/dL (0.0-1.0); Blood Urea Nitrogen 30 mg/dL (9-16); Carbon Dioxide 24 mmol/L (22-29); Chloride 111 mmol/L (96-108); Cholesterol 156 mg/dL (<200); Estimated Glomerular Filt Rate > 60; Glucose Fasting 93 mg/dL (60-99); HDL Cholesterol 57 mg/dL (>40); LDL Cholesterol Calculated 91 mg/dL (<100); Potassium 4.3 mmol/L (3.3-5.1); Sodium 143 mmol/L (135-145); Total Protein 6.9 g/dL (6.5-8.0); Triglycerides 43 mg/dL (<150)
[2024-11-21 08:16] LABS: TSH reflex Free T4 1.83 uIU/mL (0.32-4.0); Vitamin D 25-OH Total 64.4 ng/mL (>30)
[2024-11-21 08:22] LABS: Folate 12.1 ng/mL (> or = 4.0); Vitamin B12 629 pg/mL (200-900)
== END 2024-11-21 06:30 | disposition home or self-care (01) ==
LOC: HO.LAB 06:29
PROVIDERS: PCP Internal Medicine; Visit Provider Internal Medicine
DX: D64.9 Anemia, unspecified (principal); E78.00 Pure hypercholesterolemia, unspecified; E53.8 Deficiency of other specified B group vitamins; R30.0 Dysuria; E55.9 Vitamin D deficiency, unspecified
CPT/HCPCS: 36415; 80053; 80061; 81003; 82306; 82607; 82746; 84443; 85025

== ENCOUNTER 2024-11-23 08:50 | Outpatient (AMB) | payer MEDICARE, BC, SELFPAY ==
[2024-11-23 08:54] VITALS: BP 120/72; PULSE 86; O2SAT 97; BMI 25.9
--- NOTE | 2024-11-23 08:54 | A.OFFPC_ITS ---
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: No Accompanied by: Self / Same As Patient Allergies No Known Allergies Allergy (Mild, Verified 11/23/24 09:11) NKA Medication List - Last Reconciled 11/23/24 by Too Mcgee MD atorvastatin 40 mg PO DAILY cholecalciferol (vitamin D3) 25 mcg PO .every other day latanoprost 0.005% (Xalatan) 1 drp ophthalmic (eye) BEDTIME metoprolol succinate ER 25 mg PO DAILY multivitamin 1 tab PO DAILY omega-3 fatty acids (Fish Oil Concentrate) 1,000 mg PO DAILY Tobacco use date assessed: 11/23/24 Fall risk assessment: No Falls in past year Last assessed Fall Risk: 11/23/24 Dental Screening Dental Screen Date: 11/23/24 Did you have a dental visit in the last 12 months?: No Did you have a dental problem in the last 6 months where you did not have access to dental care?: No Was dental information given to patient?: No HPI hyperlipidemia, orthostasis HPI Details Patient comes in today for his follow up visit for his hyperlipidemia, cardiac arrhythmia and orthostasis States that he feels okay He denies any headaches; states that he has not had any significant dizzy spells in a while now Denies any chest pains, no SOB No nausea/vomiting, no abdominal pain No change in bowel habits noted He had his follow up labs done a couple of days ago - to discuss his results [facility] Medical History Constipation Overweight (BMI 25.0-29.9) Glaucoma Benign essential microscopic hematuria Lumbar degenerative disc disease Anemia Pure hypercholesterolemia Surgical History Hx of right inguinal hernia repair (07/16/22) Hx of basal cell carcinoma excision (~2020) History of colonoscopy History of tonsillectomy and adenoidectomy History of hemicolectomy History of inguinal hernia repair Family History Father CVD (cardiovascular disease) Mother CVD (cardiovascular disease) Social History Housing: House Are you a primary home care associate to a significant other at home: No Do you presently have visiting nurse or other home services: No Alcohol intake: current Alcohol intake frequency: 0-2 drinks per day Alcohol type: beer and wine Patient Tobacco Use Status: Former Tobacco user Tobacco use type: Cigarette Years Smoked: 15 e-Cigarette/Vaping Use: Never Used Second Hand Smoke Exposure: Yes service: Yes Current occupational status: retired Cognitive needs: No Hearing needs: No Vision needs: Yes (Reading glasses) Questionnaire PHQ-9 Over the last 2 weeks, how often have you been bothered by any of the following problems? 1. Little interest or pleasure in doing things: not at all 2. Feeling down, depressed, or hopeless: not at all 3. Trouble falling or staying asleep, or sleeping too much: not at all 4. Feeling tired or having little energy: not at all 5. Poor appetite or overeating: not at all 6. Feeling bad about yourself - or that you are a failure or have let yourself or your family down: not at all 7. Trouble concentrating on things, such as reading the newspaper or watching television: not at all 8. Moving or speaking so slowly that other people could have noticed. Or the opposite - being so fidgety or restless that you have been moving around a lot more than usual: not at all 9. Thoughts that you would be better off or of hurting yourself in some way: not at all Total score: 0 Depression Screening Interpretation: Negative Depression Screening Done: Yes 24849 - PHQ-9 Billing: Yes Source: Developed by Drs. Gordon Castellanos, Yesenia Ireland, Timothy Edmonds and colleagues, with an educational kandice from [employer]. Thrive Questionnaire Date Thrive assessed: 11/23/24 I am a: Patient What is your living situation today?: I have a steady place to live Within the past 12 months, did the food you bought not last and you didn't have the money to get more?: Never true Within the past 12 months, did you worry whether your food would run out before you got money to buy more?: I choose not to answer this question Do you have trouble paying for medicines?: No Do you have trouble getting transportation to medical appointments?: No Do you have trouble paying your heating and electricity bill?: No Do you have trouble taking care of your child, family member or friend?: No Do you have trouble with day-to-day activities such as bathing, preparing meals, shopping, managing finances, etc.?: No Are you currently unemployed and looking for a job?: No Are you interested in more education?: No Please select the resources that you would like help with: None Currently or been in a relationship where the following occur: I choose not to answer THRIVE Score: 0 AUDIT C Alcohol Use Questionnaire (AUDIT-C) 1. How often do you have a drink containing alcohol?: 4 or more times a week 2. How many drinks containing alcohol do you have on a typical day when you are drinking?: 1 or 2 3. How often do you have six or more drinks on one occasion?: Never Total Score: 4 Score Reviewed/Action Taken: Yes FELA-7 AMB Questionnaire FELA-7 Date FELA - 7 assessed: 11/23/24 Feeling nervous, anxious, or on edge: 0 = Not at all Not being able to stop or control worryin = Not at all Worrying too much about different things: 0 = Not at all Trouble relaxin = Not at all Being so restless that it is hard to sit still: 0 = Not at all Becoming easily annoyed or irritable: 0 = Not at all Feeling afraid as if something awful might happen: 0 = Not at all Total FELA-7 score (0-4 normal; 5-9 mild; 10-14 moderate; 15-21 severe): 0 Source: Developed by Drs. Gordon Castellanos, Yesenia Ireland, Timothy Edmonds and colleagues, with an educational kandice from [employer]. Review of Systems Const Denies chills, Denies fatigue, Denies fever(s) and Denies headache(s) ENT Reports as per HPI, Denies dysphagia, Reports dizziness (occasionally/rarely), Denies otalgia, Denies headache(s), Denies neck pain, Denies odynophagia and Denies sore throat Card Denies chest pain, Denies syncope, Denies irregular heart rhythm, Denies palpitations and Denies dyspnea Resp Denies chest congestion, Denies cough and Denies dyspnea GI Denies abdominal pain, Denies constipation, Denies dysphagia, Denies diarrhea, Denies nausea, Denies odynophagia and Denies vomiting Denies difficulty urinating, Denies dysuria and Denies urinary frequency Musc Reports back pain (on and off - mostly tolerable), Denies arthralgias and Denies neck pain Skin/Breast Denies rash Neuro Reports dizziness (occasionally/rarely), Denies syncope and Denies headache(s) Endo Denies fatigue and Denies palpitations Physical exam (Primary Care) Vital Signs: Last Vital Signs Pulse 86 11/23/24 08:54 BP 120/72 11/23/24 08:54 Pulse Ox 97 11/23/24 08:54 Oxygen Delivery Method Room Air 11/23/24 08:54 BMI result Body Mass Index 25.9 Tobacco/Smoking Status: Tobacco use Status Tobacco use date assessed 11/23/24 11/23/24 09:01 Patient Tobacco Use Status Former Tobacco user 11/23/24 09:01 Tobacco use type Cigarette 11/23/24 09:01 e-Cigarette/Vaping Use Never Used 11/23/24 09:01 PHQ-9: PHQ-9 Score PHQ-9: Total score 0 11/23/24 09:01 Depression Screening Interpretation: Negative Thrive Assessment: Date of Thrive Assessment Date Thrive assessed 11/23/24 11/23/24 09:01 Currently or been in a relationship where the following occur: I choose not to a nswer Const General: no acute distress and alert HENMT Ears: TM's normal bilaterally and EAC's normal Throat: Yes posterior oropharynx normal and Yes tonsils normal Neck Neck: Yes supple and No lymphadenopathy Thyroid: Thyroid normal Resp Auscultation: clear to auscultation bilaterally, no rales and no wheezes Cardio Rate: regular rate Rhythm: abnormal rhythm with ectopic beats Heart sounds: no murmurs GI Palpation (GI): Soft to palpation and nontender Auscultation: normal bowel sounds General: Yes no CVA tenderness Back/Spine/Pelvis Back: no CVA tenderness Thoracic/Lumbar Spine: lumbar spinal tenderness (mild) Skin Rashes: no rashes Extrem General: Yes no clubbing, cyanosis or edema Results Reviewed Results Reviewed: Laboratory Tests 11/21/24 11/21/24 06:44 06:47 WBC 8.2 Hgb 12.6 L Hct 38.3 L Plt Count 281 Sodium 143 Potassium 4.3 Creatinine 1.07 Estimated GFR > 60 Fasting Glucose 93 Calcium 9.0 D AST 27 ALT 21 Triglycerides 43 Cholesterol 156 LDL Cholesterol, Calc 91 HDL Cholesterol 57 Vitamin B12 629 25-OH Vitamin D Total 64.4 TSH 1.83 Ur Specific [place] 1.020 Urine Protein Negative Urine Glucose (UA) Negative Urine Blood Negative Urine Nitrite Negative Ur Leukocyte Esterase Negative Coding Level of Care Code Est Pt Level 4 (01634) Complex EM visit Add On G2211 Diagnoses Pure hypercholesterolemia E78.00 Anemia, unspecified type D64.9 Anemia type: unspecified type Orthostasis I95.1 Degeneration of intervertebral disc of lumbar region with discogenic back pain M51.360 Disc-related pain type: discogenic back pain only Constipation, unspecified constipation type K59.00 Constipation type: unspecified constipation type Benign essential microscopic hematuria R31.1 Glaucoma, unspecified glaucoma type, unspecified laterality H40.9 Glaucoma type: unspecified Laterality: unspecified laterality Additional Codes PHQ-9 - 77337 - PHQ-9 Billing: Yes ([id number]) Assessment & Plan Assessment & Plan (1) Pure hypercholesterolemia: Code(s): E78.00 - Pure hypercholesterolemia, unspecified Category: Medical Plan: Results of his labs done a couple of days ago reviewed and discussed with patient Reinforced low cholesterol diet Continue Atorvastatin 40 mg QD Will recheck his labs and fasting lipids in 6 months for follow up (2) Anemia: Code(s): D64.9 - Anemia, unspecified Category: Medical Qualifiers: Anemia type: unspecified type Qualified Code(s): D64.9 - Anemia, unspecified Plan: Corrected - will continue to monitor his CBC regularly (3) Orthostasis: Code(s): I95.1 - Orthostatic hypotension Category: Medical Plan: Patient is advised again that he is not on any medications that would affect his blood pressure and that his BP log that he brought in today shows excellent BP control, with his systolic BP consistently around 120 to 130 mm States that he has been more aware of trying to stay hydrated and in doing so, has noticed that his orthostatic symptoms have not been occurring as often lately He had an EKG done, which was mostly normal and his CT angio of the head and neck done back in 04/2021 revealed no significant stenosis Echocardiogram done back in November 2023 revealed normal LV ejection fraction with moderate left atrial enlargement without any significant valvular abnormality 3 day Holter monitor and cardiac stress testing done recently all came back normal He was seen by cardiology and reassured of his normal findings and has been reminded to try to stay adequately hydrated as best as he can (4) Lumbar degenerative disc disease: Code(s): M51.36 - Other intervertebral disc degeneration, lumbar region Category: Medical Qualifiers: Disc-related pain type: discogenic back pain only Qualified Code(s): M51.360 - Other intervertebral disc degeneration, lumbar region with discogenic back pain only Plan: Reinforced activity and weight-lifting restrictions Lumbar spine x-rays done back in April 2017 showed (+) significant lumbar spondylosis, especially at L1-L2 Patient states that his lower back has not been bothering him too often lately and he continues to be careful/aware with what he does activity-andersen (5) Constipation: Code(s): K59.00 - Constipation, unspecified Category: Medical Qualifiers: Constipation type: unspecified constipation type Qualified Code(s): K59.00 - Constipation, unspecified Plan: States that his symptoms have improved and are well-controlled - takes some OTC stool softener as needed Reinforced increased oral fluids and dietary fiber (6) Benign essential microscopic hematuria: Code(s): R31.1 - Benign essential microscopic hematuria Category: Medical Plan: Asymptomatic - his last urine sample came back showing no RBCs in the urine Will continue to monitor routinely (7) Glaucoma: Code(s): H40.9 - Unspecified glaucoma Category: Medical Qualifiers: Glaucoma type: unspecified Laterality: unspecified laterality Qualified Code(s): H40.9 - Unspecified glaucoma Plan: Follow up with ophthalmology as scheduled Plan Follow up in 6 months Orders: Orders Complete Blood Count Auto Diff 6 Months D64.9 - Anemia, unspecified Lipid Panel 6 Months E78.00 - Pure hypercholesterolemia, unspecified Comprehensive Gregory. Panel Fast 6 Months E78.00 - Pure hypercholesterolemia, unspecified UA CC w/rflx Micro + Cult 6 Months R30.0 - Dysuria
--- OUTSIDE RECORDS SUMMARY | 2024-11-23 09:17 | XMS_ITS | Continuity of Care Document ---
Author Name [facility] Organization [facility] Care Team Providers Care Etched Circuit Processor Name Role Phone [facility] Unavailable Unavailable Immunizations Combined list of available immunizations from the Department of Defense and Veterans Affairs facilities. Immunization Series Date Given Administered By Site Reaction Lot Number CVX Code Drug Operations Administrator Status Comments Source COVID-19 (MODERNA), MRNA, LNP-S, PF, 100 MCG/0.5 ML DOSE 2 2020 207 complet ed MOD; [id number]; IELD COVID-19 (MODERNA), MRNA, LNP-S, PF, 100 MCG/0.5 ML DOSE 1 2020 207 complet ed MOD; [id number]; IELD
--- OUTSIDE RECORDS SUMMARY | 2024-11-23 09:17 | XMS_ITS | Clinical Summary ---
Author Organization [facility] Address [address] [place] [address] Care Team Providers Care Storage Facility Housekeeper Name Role Phone Too Mcgee MD Primary Care Provider +1- [phone] Allergies No known active allergies Medications Medication Sig Dispensed Refills Start Date End Date Status atorvastatin (LIPITOR) tablet 40 mg 0 09/20/2020 Active latanoprost (XALATAN) 0.005 % ophthalmic solution 0 08/30/2020 Active [place]-3 Fatty Acids (Fish Oil) 1000 MG CAPS [...] age to complete this topic Care Teams Storage Facility Housekeeper Relationship Specialty Start Date End Date Too Mcgee MD [address] [place] [address] Dr Tressa [place] [id number] PCP - General Internal Medicine 11/22/20
--- OUTSIDE RECORDS SUMMARY | 2024-11-23 09:17 | XMS_ITS | Data Portability ---
Author Organization [place] [facility] Freda Wagner [facility] [place] Address [address] [facility] [address] [place] [address] Assessment Encounter Date Assessment Date Assessment LastModified [...] view 2022 023 [email or web address] 2 [facility], [address], [place] [address], [place], [address], 11:26:20 Medication Orders Kenalog 40 mg/mL suspension for injection [address]/Pharmacy #0838, [address] [place], [address], 3 10:54:44 lidocaine (PF) 10 mg/mL (1 %) injection solution [address]/Pharmacy #0838, [address] [place], [address], 3 10:54:44 Patient TargetsNo targets recorded. Patient [...] Time Osteoarthri tis of right knee joint 0628597356516 00 Active 2022 PILI DIMAS PA-C [address] [facility],[address] [address], [place], [address], [place] [facility] 3 07:47:44 Problem Notes None recorded. Procedures Surgical History Date Name Laterality Status Provider Name and Address Organization Details Recorded Time 3 Knee Joint/Bursa Asp & Inj completed PILI DIMAS PA-C [address] [facility],[address], [place], [address], [place] [facility] 02/10/2023 10:55:32 8 excision of tumor of liver completed [facility] - [facility] 02/10/2023 13:49:44 8 hernia repair completed [facility] 02/10/2023 13:49:12 Imaging Results None recorded. [...] Updated DateTime 02/10/2023 175.26 cm 24.4 kg/m2 [address]93.[address] [place] - [facility] 02/10/2023 11:23:36 Social History Question Answer Notes LastModified by Organizat ion Details LastModified Time Tobacco Smoking Status Former Smoker Mary brunner, [place] - [facility] 02/10/2023 13:36:41 What Is Your Level [...] Diagnosis ICD10 Code Diagnosis Note JUVENCIO ARAUJO [facility] [address] [address] 02/10/2023 10:27:14 02/10/2023 11:26:20 Pain of right knee joint 8447620882 63338 M25.561 Osteoarthr itis of right knee joint 2600451269 42408 M17.11 Health Concerns Section Related Observation LastModified by Organization Detai ls LastModified Time None Recorded Concern Status LastModified by Organization Details LastModified Time None Recorded Advance Directives Directive None Recorded Payers Encounter Date Sequence Insurance Name Policy Number Policy Galvan Covered Member ID Galvan Member ID Guarantor Name 02/10/2023 2 [place]: [facility] [employer] Mya Shine [id number] Eduar Shine 02/10/2023 1 MEDICARE [place]: [facility] [employer] Eduar Shine [id number] 3 Eduar Shine Notes Date Note Type [...] for evaluation treatment. PILI DIMAS PA-C [address] [facility],[address] [place], [address], [place] [facility] 02/10/2023 10:56:04
== END 2024-11-23 09:23 | disposition home or self-care (01) ==
LOC: HO.HMCH 08:51
PROVIDERS: PCP Internal Medicine; Visit Provider Internal Medicine
DX: E78.00 Pure hypercholesterolemia, unspecified (principal); D64.9 Anemia, unspecified; I95.1 Orthostatic hypotension; M51.360 Other intervertebral disc degeneration, lumbar region with discogenic back pain only; K59.00 Constipation, unspecified; R31.1 Benign essential microscopic hematuria; H40.9 Unspecified glaucoma

== ENCOUNTER → 2024-11-23 08:50 | Outpatient (BNVA) | payer MEDICARE, BC, SELFPAY | PROVIDERS: PCP Internal Medicine; Visit Provider Internal Medicine | DX: E78.00 Pure hypercholesterolemia, unspecified (principal); D64.9 Anemia, unspecified; I95.1 Orthostatic hypotension; M51.360 Other intervertebral disc degeneration, lumbar region with discogenic back pain only; K59.00 Constipation, unspecified; R31.1 Benign essential microscopic hematuria; H40.9 Unspecified glaucoma | CPT/HCPCS: 96127; 99212 ==

== ENCOUNTER 2025-04-05 08:48 | Outpatient (AMB) | payer MEDICARE, BC, SELFPAY ==
[2025-04-05 08:50] VITALS: BP 120/70; PULSE 55; BMI 24.8
--- NOTE | 2025-04-05 08:50 | A.OFFVIS_ITS ---
Vital Signs 04/05/25 08:50 Height 5 ft 8 in Weight 163 lb 2.273 oz BMI 24.8 BP 120/70 Blood Pressure Location Rt brachial Position Sitting Pulse 55 Pulse Source Monitor Intake Visit Reasons: 1 year follow up Intake Note: 1 Year F/u Accompanied by: Self / Same As Patient Allergies No Known Allergies Allergy (Mild, Verified 04/05/25 08:54) NKA Medication List - Last Reconciled 04/05/25 by Jasson Lynch MD atorvastatin 40 mg PO DAILY cholecalciferol (vitamin D3) 25 mcg PO .every other day latanoprost 0.005% (Xalatan) 1 drp ophthalmic (eye) BEDTIME metoprolol succinate ER 25 mg PO DAILY multivitamin 1 tab PO DAILY omega-3 fatty acids (Fish Oil Concentrate) 1,000 mg PO DAILY HPI Comments Details: Eduar comes for follow-up. Overall he has been doing well. No cardiac symptoms to report. Denies any irregular heartbeat or prolonged palpitations. No lightheadedness, syncope. Remains very active and has no exertional chest pain or shortness of breath. No heart failure symptoms. His orthostatic symptoms have improved with increase water intake. He denies any [facility] Medical History Constipation Overweight (BMI 25.0-29.9) Glaucoma Benign essential microscopic hematuria Lumbar degenerative disc disease Anemia Pure hypercholesterolemia Surgical History Hx of right inguinal hernia repair (07/16/22) Hx of basal cell carcinoma excision (~2020) History of colonoscopy History of tonsillectomy and adenoidectomy History of hemicolectomy History of inguinal hernia repair Family History Father CVD (cardiovascular disease) Mother CVD (cardiovascular disease) Social History Housing: House Are you a primary senior care provider to a significant other at home: No Do you presently have visiting nurse or other home services: No Alcohol intake: current Alcohol intake frequency: 0-2 drinks per day Alcohol type: beer and wine Patient Tobacco Use Status: Former Tobacco user Tobacco use type: Cigarette Years Smoked: 15 e-Cigarette/Vaping Use: Never Used Second Hand Smoke Exposure: Yes service: Yes Current occupational status: retired Cognitive needs: No Hearing needs: No Vision needs: Yes (Reading glasses) Review of Systems Const Denies daytime sleepiness, Denies difficulty sleeping, Denies snoring, Denies stops breathing during sleep and Denies weakness Card Denies chest pain, Denies rapid heart rate, Denies irregular heart rhythm, Denies claudication, Denies leg edema, Denies lightheadedness, Denies palpitations, Denies dyspnea, Denies dyspnea on exertion, Denies orthopnea, Denies paroxysmal nocturnal dyspnea and Denies slow heart rate Resp Denies cough, Denies dyspnea, Denies dyspnea on exertion and Denies snoring GI Reports no additional complaints, Denies hematochezia, Denies change in stool character and Denies dyspepsia Musc Denies abnormal gait, Denies muscle weakness and Denies numbness Neuro Denies abnormal gait, Denies numbness and Denies weakness Endo Denies palpitations Physical Exam Vital Signs: Last Vital Signs Pulse 55 04/05/25 08:50 BP 120/70 04/05/25 08:50 BMI result Body Mass Index 24.8 Const General: cooperative, comfortable, no acute distress, well developed, alert, awake and Physically active Nutritional Appearance: well nourished and thin Orientation/consciousness: patient oriented x3 Limitations: no limitations HEENT Head: Yes normocephalic and Yes atraumatic Neck Neck: Yes trachea midline, Yes supple and Yes no JVD Resp Effort & Inspection: normal respiratory effort Auscultation: clear to auscultation bilaterally Cardio Jugular venous distension: no JVD Palpation: normal PMI Rate: regular rate Rhythm: abnormal rhythm with ectopic beats Heart sounds: S1 normal heart sound present, S2 normal heart sound present, no click, no gallops, no murmurs and no rubs GI Auscultation: normal bowel sounds Skin General skin exam: no rashes or lesions noted and ecchymosis Neuro General: patient oriented x3 and no focal motor deficits Extrem General: Yes no clubbing, cyanosis or edema Psych Appearance: grossly normal Office Procedures EKG Details: EKG shows sinus bradycardia with first-degree AV block at 55 beats per minute [id number], Complete Assessment & Plan Assessment & Plan (1) Cardiac arrhythmia: Code(s): I49.9 - Cardiac arrhythmia, unspecified Category: Medical Qualifiers: Arrhythmia type: unspecified cardiac arrhythmia Qualified Code(s): I49.9 - Cardiac arrhythmia, unspecified Plan: Patient with prior cardiac arrhythmias with rare PACs and PVCs but with some SVE is and SVT without symptoms as well as 1 episode of nonsustained VT with normal structure of the heart by workup with normal LV ejection fraction as well as no evidence of myocardial ischemia. Continues to have no symptoms related to it. I would continue with metoprolol therapy. Avoidance of stimulants was discussed. Stress mitigation strategies were discussed. Does have left atrial enlargement at risk for development of atrial fibrillation. Advised to call me with any new symptoms. (2) Orthostasis: Code(s): I95.1 - Orthostatic hypotension Category: Medical Plan: Prior history of orthostatic symptoms. These have improved with fluid intake. We discussed about management of orthostatic low blood pressure and orthostatic precautions. Advised to maintain adequate fluid intake. Symptoms have improved with the same. Continue metoprolol therapy. Will follow up in the clinic if need be. Thank you for allowing me to partake in his care Coding Level of Care Code Est Pt Level 4 (03005) Complex EM visit Add On G2211 Diagnoses Cardiac arrhythmia, unspecified cardiac arrhythmia type I49.9 Arrhythmia type: unspecified cardiac arrhythmia Orthostasis I95.1 CPT Codes EKG - CPT: 76352-[id number], Complete ([id number])
--- OUTSIDE RECORDS SUMMARY | 2025-04-05 10:16 | XMS_ITS ---
Author Name [facility] Organization Unknown History of Medication Use Medication [...] Diagnosis Location Date Ambulatory [facility] 02/10/2023 Ambulatory [facility] 02/06/2023 Ambulatory [facility] 02/06/2023
--- OUTSIDE RECORDS SUMMARY | 2025-04-05 10:16 | XMS_ITS | Clinical Summary ---
Author Organization [facility] Address [address] [place] [address] Care Team Providers Care Urology Nurse Name Role Phone Too Mcgee MD Primary Care Provider +1- [phone] Allergies No known active allergies Medications Medication Sig Dispensed Refills Start Date End Date Status atorvastatin (LIPITOR) tablet 40 mg 0 09/20/2020 Active latanoprost (XALATAN) 0.005 % ophthalmic solution 0 08/30/2020 Active [place]-3 Fatty Acids (Fish Oil) 1000 MG CAPS [...] 1-dose 75+ series) 2021 Influenza Vaccine (#1) 2025 Hepatitis B Vaccines Aged Out No long er eligible based on patient's age to complete this topic RSV Ped < 20 months Aged Out No longe r eligible based on patient's age to complete this topic Care Teams Urology Nurse Relationship Specialty Start Date End Date Too Mcgee MD [address] [place] [address] Dr Tressa [place] [id number] PCP - General Internal Medicine 11/22/20
== END 2025-04-05 09:10 | disposition home or self-care (01) ==
LOC: HO.HCS 08:49
PROVIDERS: PCP Internal Medicine; Visit Provider Internal Medicine Cardiovascular Disease
DX: I49.9 Cardiac arrhythmia, unspecified (principal); I95.1 Orthostatic hypotension
CPT/HCPCS: 93010; 99214; G2211

== ENCOUNTER → 2025-04-05 08:48 | Outpatient (BNVA) | payer MEDICARE, BC, SELFPAY | PROVIDERS: PCP Internal Medicine; Visit Provider Internal Medicine Cardiovascular Disease | DX: I95.1 Orthostatic hypotension (principal); I49.9 Cardiac arrhythmia, unspecified; R00.1 Bradycardia, unspecified; I44.0 Atrioventricular block, first degree | CPT/HCPCS: 93005; 99212 ==

== ENCOUNTER 2025-05-22 06:44 | Outpatient (REF) | payer MEDICARE, BC, SELFPAY ==
--- OUTSIDE RECORDS SUMMARY | 2025-05-22 06:48 | XMS_ITS | Clinical Summary ---
Author Organization [facility] Address [address] [place] [address] Care Team Providers Care Director Global Development Name Role Phone Too Mcgee MD Primary Care Provider +1- [phone] Allergies No known active allergies Medications Medication Sig Dispensed Refills Start Date End Date Status atorvastatin (LIPITOR) tablet 40 mg 0 09/20/2020 Active latanoprost (XALATAN) 0.005 % ophthalmic solution 0 08/30/2020 Active [place]-3 Fatty Acids (Fish Oil) 1000 MG CAPS [...] age to complete this topic Care Teams Director Global Development Relationship Specialty Start Date End Date Too Mcgee MD [address] [place] [address] Dr Tressa [place] [id number] PCP - General Internal Medicine 11/22/20
--- OUTSIDE RECORDS SUMMARY | 2025-05-22 06:48 | XMS_ITS | Data Portability ---
Author Organization [place] [facility] Fred[facility] [place] Address [address] [place] [address] Assessment Encounter Date Assessment Date Assessment LastModified [...] findings at length with the patient today. We discussed the nature and etiology of this problem along with current treatment options. We discussed the expected course and outcomes and what to expect. We also discussed risks and benefits. All of their questions were answered today, and there was exhibited understanding and comprehension of all that was discussed. Time Spent: 10 minutes were spent reviewing previous imaging and charting. 10 minutes were spent obtaining patient history. 5 minutes were spent on physical exam. 5minutes were spent explaining diagnosis and assessment. Today's [...] view 2022 023 [email or web address] 2 [facility], [address], [place] [address], [place], [address], 11:26:20 Medication Orders Kenalog 40 mg/mL suspension for injection [address]/Pharmacy [address]0838, [address] [place], [address], 3 10:54:44 lidocaine (PF) 10 mg/mL (1 %) injection solution 2022 023 [facility], [address] [place], [address], 3 10:54:44 Patient TargetsNo targets recorded. Patient [...] following the injection. This is called a kurt russell . To help minimize the chances of [...] Name and Address Organization Details Recorded Time Tear of medial meniscus of knee 247073986 Active 2020 Traumatic tear of medial meniscus of knee, right, initial encounter Not Available Count includes the [facility] 5 23:52:45 Instabili ty of joint of right knee 93946393763 Active 2020 Recurrent right knee instabili ty Not Available Count includes the [facility] 5 23:52:45 Arthritis of right knee joint 99279012792 [address]804 Active 2020 Arthritis of knee, right Not Available Count includes the [facility] 5 23:52:44 Osteoarth ritis of right knee joint 54232207683 9100 Active 2022 PILI DIMAS PA-C [address], [place], [address] , [place] [facility] 3 07:47:44 Problem Notes None recorded. Procedures Surgical History Date Name Laterality Status Provider Name and Address Organization Details Recorded Time 3 Knee Joint/Bursa Asp & Inj completed PILI DIMAS PA-C [address], [place], [address], [place] [facility] 02/10/2023 10:55:32 8 excision of tumor of liver completed [facility] - [facility], 02/10/2023 13:49:44 8 hernia repair [facility] 13:49:12 Imaging Results None recorded. Procedure [...] Not Available Not Available Not Avai lable ascorbic acid (vitamin C) 250 mg tablet Take 250 mg by mouth daily. active Not Available Not Available No t Available cephalexin 500 mg capsule TAKE 1 CAPSULE BY MOUTH EVERY 8 HOURS FOR 4 DAYS TAKE ANTIBIOTI C FOR 4 MORE DAYS 02/10 completed Not Available Not Available Not Available methylpredn isolone acetate 40 mg/mL suspension for injection 05/09 completed Not Available Not Available Not Available cholecalcif mani (vitamin D3) 10 mcg (400 unit) tablet Take 400 Units by mouth daily. active Not Available Not Available No t Available oxycodone 5 mg tablet TAKE 1 TABLET ORALLY EVERY 6 HOURS NEEDED FOR PAIN (SCALE SCORE 7-10) 02/10 completed Not Available Not Available Not Available docosahexae noic acid (dha)-epa 120 mg-180 mg capsule Take by mouth. active Not Available Not Available No t Available fluocinolon e 0.01 % scalp oil [...] Updated DateTime 02/10/2023 175.26 cm 24.4 kg/m2 56873.74 g Mary Duarte [place] - [facility] 02/10/2023 11:23:36 Social History Question Answer Notes LastModified by [employer] Details LastModified Time Tobacco Smoking Status Former Smoker Mary Duarte null, [place] - [facility] 02/10/2023 13:36:41 When Did You Quit Smoking? 16+yearssinc elastcigaret te Information not available 02/10/2023 Sex: Unknown Functional Status Question Answer Note LastModified by [employer] Details LastModified Time How many times per week do you consume alcohol? 5-7 times per week Information not available 02/10/2023 Do you use any illicit or recreational drugs? No Information not available 02/10/2023 Do you or have you ever used any other forms of tobacco or nicotine? No Information not available 02/10/2023 What is your level of alcohol consumption? Moderate Information not available 02/10/2023 Mental Status None recorded. Family History Relationship Description Onset Age of this Age Resolved Age Notes LastModified by Organization Details LastModified Time Mother Heart disease Not available 2022 13:19:27 Father Heart disease Not available 2022 13:19:27 Brother Heart disease Not available 2022 13:19:27 Medical History Condition Response Cancer Y Past Encounters Encounter ID Performer Location Encounter Start Date Encounter Closed Date Diagnosis/Indication Diagnosis SNOMED-CT Code Diagnosis ICD10 Code Diagnosis IMO Codes Diagnosis Note JUVENCIO ARAUJO [address] [address] [place] [address] 02/10/2023 10:27:14 02/10/2023 11:26:20 Pain of right knee joint 0124438748 78673 M25.561 Osteoarthr itis of right knee joint 6832738101 09773 M17.11 Health Concerns Section Related Observation LastModified by Organization Detai ls LastModified Time None Recorded Concern Status LastModified by Organization Details LastModified Time None Recorded Advance Directives Directive None Recorded Payers Insurance Date Sequence Insurance Name Policy Number Policy Galvan Covered Member ID Galvan Member ID Guarantor Name 02/10/2023 2 [place] [address] [id number] 2 Eduar Shine 02/16/2023 2 [place] Mya Benedict Fátima [id number] Eduar Shine 02/06/2023 1 [place] B-[place]: [employer] Eduar Saldaña Fátima [id number] Eduar Shine Notes Date Note Type Note Provider Name and Address Organization Details Recorded Time 02/10/2023 text/html R knee. cortisone 05/09/21. xrays today Pleasant 77-year-old male last seen on the above-noted date and treated at that time. He states he has had intermittent right knee discomfort that is worse with bending and weightbearing. Denies any injury. Denies fevers or chills or warmth overlying the right knee joint here for evaluation treatment. PILI DIMAS PA-C [address] [facility] [address], [place], [address], [place] [facility] 02/10/2023 10:56:04
[2025-05-22 06:57] LABS: MANUAL DIFF FLAG NO
[2025-05-22 07:14] LABS: Hematocrit 42.6 % (42.0-52.0); Hemoglobin 14.0 g/dl (14.0-18.0); Imm Gran Abs Auto 0.02 X10*3/uL (0.00-0.03); Imm Gran Pct Auto 0.3 % (0.0-0.4); Lymphocytes Absolute Auto 1.6 X10*3/uL (1.2-4.9); Mean Corpuscular HGB Conc 32.9 g/dl (31.0-36.0); Mean Corpuscular Hemoglobin 29.4 pg (27.0-33.0); Mean Corpuscular Volume 89.5 fL (80.0-98.0); NRBC Abs Auto 0.000 X10*3/uL (0.0-0.012); NRBC Pct Auto 0.0 /100WBC (0.0-0.2); Platelet Count 249 X10*3/uL (160-400); Red Blood Count 4.76 X10*6/uL (4.60-5.80); White Blood Count 7.0 X10*3/uL (4.8-10.8)
[2025-05-22 07:35] LABS: Alanine Aminotransferase 29 U/L (0-40); Albumin Level 4.4 g/dL (3.5-5.0); Alkaline Phosphatase 124 U/L (39-117); Anion Gap 11 (12-20); Aspartate Amino Transferase 43 U/L (5-37); Blood Urea Nitrogen 28 mg/dL (9-16); Calcium 9.6 mg/dL (8.4-10.2); Carbon Dioxide 27 mmol/L (22-29); Chloride 107 mmol/L (96-108); Cholesterol 189 mg/dL (<200); Estimated Glomerular Filt Rate 60; HDL Cholesterol 62 mg/dL (>40); Potassium 4.9 mmol/L (3.3-5.1); Sodium 140 mmol/L (135-145); Total Protein 7.2 g/dL (6.5-8.0); Triglycerides 74 mg/dL (<150)
[2025-05-22 07:45] LABS: Appearance Urine Clear; Glucose Urine UA Negative (Negative); PH 5.5 (5.0-9.0); Specific Gravity - Urine 1.015 (1.005-1.025); UMIC TRIGGER UACC YES
== END 2025-05-22 06:45 | disposition home or self-care (01) ==
LOC: HO.LAB 06:44
PROVIDERS: PCP Internal Medicine; Visit Provider Internal Medicine
DX: E78.00 Pure hypercholesterolemia, unspecified (principal); D64.9 Anemia, unspecified; R30.0 Dysuria
CPT/HCPCS: 36415; 80053; 80061; 81001; 85025

== ENCOUNTER 2025-05-26 09:21 | Outpatient (AMB) | payer MEDICARE, BC, SELFPAY ==
--- NOTE | 2025-05-26 09:24 | A.OFFPC_ITS ---
Vital Signs 05/26/25 09:25 Height 5 ft 8 in Weight 167 lb 2 oz BMI 25.4 BP 130/70 Blood Pressure Location Lt brachial Position Sitting Pulse 65 Pulse Source Pulse Oximeter Pulse Oximetry (%) 97 Oxygen Delivery Method Room Air Intake Visit Reasons: hyperlipidemia, arrhythmia, orthostasis, anemia Securities Analyst Required: No Accompanied by: Self / Same As Patient Allergies No Known Allergies Allergy (Mild, Verified 05/26/25 09:43) NKA Medication List - Last Reconciled 05/26/25 by Too Mcgee MD atorvastatin 40 mg PO DAILY cholecalciferol (vitamin D3) 25 mcg PO .every other day latanoprost 0.005% (Xalatan) 1 drp ophthalmic (eye) BEDTIME metoprolol succinate ER 25 mg PO DAILY multivitamin 1 tab PO DAILY omega-3 fatty acids (Fish Oil Concentrate) 1,000 mg PO DAILY Tobacco use date assessed: 05/26/25 Fall risk assessment: No Falls in past year Last assessed Fall Risk: 05/26/25 Dental Screening Dental Screen Date: 05/26/25 Did you have a dental visit in the last 12 months?: Yes Did you have a dental problem in the last 6 months where you did not have access to dental care?: No Was dental information given to patient?: Patient has dentist HPI hyperlipidemia, arrhythmia, orthostasis, anemia HPI Details Patient comes in today for his follow up visit for his hyperlipidemia, cardiac arrhythmia and orthostasis States that he feels okay He denies any headaches or dizziness Denies any chest pains, no increased SOB No nausea/vomiting, no abdominal pain No change in bowel habits noted He had his follow up labs done a few days ago - to discuss his results [facility] Medical History Constipation Overweight (BMI 25.0-29.9) Glaucoma Benign essential microscopic hematuria Lumbar degenerative disc disease Anemia Pure hypercholesterolemia Surgical History Hx of right inguinal hernia repair (07/16/22) Hx of basal cell carcinoma excision (~2020) History of colonoscopy History of tonsillectomy and adenoidectomy History of hemicolectomy History of inguinal hernia repair Family History Father CVD (cardiovascular disease) Mother CVD (cardiovascular disease) Social History Housing: House Are you a primary director long term care to a significant other at home: No Do you presently have visiting nurse or other home services: No Alcohol intake: current Alcohol intake frequency: 0-2 drinks per day Alcohol type: beer and wine Patient Tobacco Use Status: Former Tobacco user Tobacco use type: Cigarette Years Smoked: 15 e-Cigarette/Vaping Use: Never Used Second Hand Smoke Exposure: Yes service: Yes Current occupational status: retired Cognitive needs: No Hearing needs: No Vision needs: Yes (Reading glasses) Questionnaire PHQ-9 Over the last 2 weeks, how often have you been bothered by any of the following problems? 1. Little interest or pleasure in doing things: not at all 2. Feeling down, depressed, or hopeless: not at all 3. Trouble falling or staying asleep, or sleeping too much: not at all 4. Feeling tired or having little energy: not at all 5. Poor appetite or overeating: not at all 6. Feeling bad about yourself - or that you are a failure or have let yourself or your family down: not at all 7. Trouble concentrating on things, such as reading the newspaper or watching television: not at all 8. Moving or speaking so slowly that other people could have noticed. Or the opposite - being so fidgety or restless that you have been moving around a lot m ore than usual: not at all 9. Thoughts that you would be better off or of hurting yourself in some way: not at all Total score: 0 Depression Screening Interpretation: Negative Depression Screening Done: Yes 07977 - PHQ-9 Billing: Yes Source: Developed by Drs. Gordon Castellanos, Yesenia Ireland, Timothy Edmonds and colleagues, with an educational kandice from [employer]. Thrive Questionnaire Date Thrive assessed: 05/26/25 I am a: Patient What is your living situation today?: I have a steady place to live Within the past 12 months, did the food you bought not last and you didn't have the money to get more?: Never true Within the past 12 months, did you worry whether your food would run out before you got money to buy more?: I choose not to answer this question Do you have trouble paying for medicines?: No Do you have trouble getting transportation to medical appointments?: No Do you have trouble paying your heating and electricity bill?: No Do you have trouble taking care of your child, family member or friend?: No Do you have trouble with day-to-day activities such as bathing, preparing meals, shopping, managing finances, etc.?: No Are you currently unemployed and looking for a job?: No Are you interested in more education?: No Please select the resources that you would like help with: None Currently or been in a relationship where the following occur: I choose not to answer THRIVE Score: 0 AUDIT C Alcohol Use Questionnaire (AUDIT-C) 1. How often do you have a drink containing alcohol?: 4 or more times a week 2. How many drinks containing alcohol do you have on a typical day when you are drinking?: 1 or 2 3. How often do you have six or more drinks on one occasion?: Never Total Score: 4 Score Reviewed/Action Taken: Yes FELA-7 AMB Questionnaire FELA-7 Date FELA - 7 assessed: 05/26/25 Feeling nervous, anxious, or on edge: 0 = Not at all Not being able to stop or control worryin = Not at all Worrying too much about different things: 0 = Not at all Trouble relaxin = Not at all Being so restless that it is hard to sit still: 0 = Not at all Becoming easily annoyed or irritable: 0 = Not at all Feeling afraid as if something awful might happen: 0 = Not at all Total FELA-7 score (0-4 normal; 5-9 mild; 10-14 moderate; 15-21 severe): 0 Source: Developed by Drs. Gordon Castellanos, Yesenia Ireland, Timothy Edmonds and colleagues, with an educational kandice from [employer]. Review of Systems Const Denies chills, Denies fatigue, Denies fever(s) and Denies headache(s) ENT Denies dysphagia, Denies dizziness, Denies otalgia, Denies headache(s), Denies neck pain, Denies odynophagia and Denies sore throat Card Denies chest pain, Denies syncope, Denies irregular heart rhythm, Denies palpitations and Denies dyspnea Resp Denies chest congestion, Denies cough and Denies dyspnea GI Denies abdominal pain, Denies constipation, Denies dysphagia, Denies diarrhea, Denies nausea, Denies odynophagia and Denies vomiting Denies difficulty urinating, Denies dysuria, Denies nocturia and Denies urinary frequency Musc Reports back pain (on and off - mostly tolerable), Denies arthralgias and Denies neck pain Skin/Breast Denies rash Neuro Denies dizziness, Denies syncope and Denies headache(s) Endo Denies fatigue and Denies palpitations Physical exam (Primary Care) Vital Signs: Last Vital Signs Pulse 65 05/26/25 09:25 BP 130/70 05/26/25 09:25 Pulse Ox 97 05/26/25 09:25 Oxygen Delivery Method Room Air 05/26/25 09:25 BMI result Body Mass Index 25.4 Tobacco/Smoking Status: Tobacco use Status Tobacco use date assessed 05/26/25 05/26/25 09:30 Patient Tobacco Use Status Former Tobacco user 05/26/25 09:30 Tobacco use type Cigarette 05/26/25 09:30 e-Cigarette/Vaping Use Never Used 05/26/25 09:30 PHQ-9: PHQ-9 Score PHQ-9: Total score 0 05/26/25 09:47 Depression Screening Interpretation: Negative Thrive Assessment: Date of Thrive Assessment Date Thrive assessed 05/26/25 05/26/25 09:30 Currently or been in a relationship where the following occur: I choose not to answer Const General: no acute distress and alert HENMT Ears: TM's normal bilaterally and EAC's normal Throat: Yes posterior oropharynx normal and Yes tonsils normal Neck Neck: Yes supple and No lymphadenopathy Thyroid: Thyroid normal Resp Auscultation: clear to auscultation bilaterally, no rales and no wheezes Cardio Rate: regular rate Rhythm: abnormal rhythm with ectopic beats Heart sounds: no murmurs GI Palpation (GI): Soft to palpation and nontender Auscultation: normal bowel sounds General: Yes no CVA tenderness Back/Spine/Pelvis Back: no CVA tenderness Thoracic/Lumbar Spine: lumbar spinal tenderness (mild) Skin Rashes: no rashes Extrem General: Yes no clubbing, cyanosis or edema Results Reviewed Results Reviewed: Laboratory Tests 05/22/25 05/22/25 06:51 06:55 WBC 7.0 Hgb 14.0 Hct 42.6 Plt Count 249 Sodium 140 Potassium 4.9 Creatinine 1.18 Estimated GFR 60 Fasting Glucose 95 Calcium 9.6 D AST 43 H ALT 29 Alkaline Phosphatase 124 H Triglycerides 74 Cholesterol 189 LDL Cholesterol, Calc 113 H HDL Cholesterol 62 Ur Specific [place] 1.015 Urine Protein Negative Urine Glucose (UA) Negative Urine Blood Trace H Urine Nitrite Negative Ur Leukocyte Esterase Negative Coding Level of Care Code Est Pt Level 4 (06470) Diagnoses Pure hypercholesterolemia E78.00 Cardiac arrhythmia, unspecified cardiac arrhythmia type I49.9 Arrhythmia type: unspecified cardiac arrhythmia Anemia, unspecified type D64.9 Anemia type: unspecified type Orthostasis I95.1 Lumbar degenerative disc disease M51.36 Constipation, unspecified constipation type K59.00 Constipation type: unspecified constipation type Benign essential microscopic hematuria R31.1 Glaucoma, unspecified glaucoma type, unspecified laterality H40.9 Glaucoma type: unspecified Laterality: unspecified laterality Additional Codes PHQ-9 - 18607 - PHQ-9 Billing: Yes ([id number]) Assessment & Plan Assessment & Plan (1) Pure hypercholesterolemia: Code(s): E78.00 - Pure hypercholesterolemia, unspecified Category: Medical Plan: Results of his labs done a few days ago reviewed and discussed with patient - his cholesterol levels have gone up slightly from previous Reinforced low cholesterol diet Continue Atorvastatin 40 mg QD Will recheck his labs and fasting lipids in 6 months for follow up (2) Cardiac arrhythmia: Code(s): I49.9 - Cardiac arrhythmia, unspecified Category: Medical Qualifiers: Arrhythmia type: unspecified cardiac arrhythmia Qualified Code(s): I49.9 - Cardiac arrhythmia, unspecified Plan: (+) Hx of cardiac arrhythmias - rare PACs and PVCs with asymptomatic SVTs and one episode of non-sustained VT Cardiac work ups were mostly normal, with echocardiogram showing only moderately dilated LA and with mild MR; EF was normal Continue Metoprolol ER 25 mg QD Reinforced avoidance of stimulants Follow up with cardiology as scheduled (3) Anemia: Code(s): D64.9 - Anemia, unspecified Category: Medical Qualifiers: Anemia type: unspecified type Qualified Code(s): D64.9 - Anemia, unspecified Plan: Corrected - will continue to monitor his CBC regularly (4) Orthostasis: Code(s): I95.1 - Orthostatic hypotension Category: Medical Plan: Patient is not on any medications that would affect his blood pressure and his BP logs that he brings in show excellent BP control, with his systolic BP consistently around 120 to 130 mm States that he has been more aware of trying to stay hydrated and in doing so, has noticed that his orthostatic symptoms have not been occurring as often lately EKG was mostly normal and his CT angio of the head and neck done back in 04/2021 revealed no significant stenosis Echocardiogram done back in November 2023 revealed normal LV ejection fraction with moderate left atrial enlargement without any significant valvular abnormality 3 day Holter monitor and cardiac stress testing done earlier this year all came back normal He was seen by cardiology for follow up recently and was reassured of his normal findings, to continue on all of his current Rx, including Metoprolol, and has been reminded to try to stay adequately hydrated as best as he can (5) Lumbar degenerative disc disease: Code(s): M51.36 - Other intervertebral disc degeneration, lumbar region Category: Medical Plan: Reinforced activity and weight-lifting restrictions Lumbar spine x-rays done back in April 2017 showed (+) significant lumbar spondylosis, especially at L1-L2 Patient states that his lower back has not been bothering him too often lately and he continues to be careful/aware with what he does activity-andersen (6) Constipation: Code(s): K59.00 - Constipation, unspecified Category: Medical Qualifiers: Constipation type: unspecified constipation type Qualified Code(s): K59.00 - Constipation, unspecified Plan: States that his symptoms have improved and are well-controlled - takes some OTC stool softener as needed Reinforced increased oral fluids and dietary fiber intake (7) Benign essential microscopic hematuria: Code(s): R31.1 - Benign essential microscopic hematuria Category: Medical Plan: He remains asymptomatic - his most recent urine sample came back showing trace RBCs in the urine although his previous one was negative Will continue to monitor this routinely (8) Glaucoma: Code(s): H40.9 - Unspecified glaucoma Category: Medical Qualifiers: Glaucoma type: unspecified Laterality: unspecified laterality Qualified Code(s): H40.9 - Unspecified glaucoma Plan: Follow up with ophthalmology as scheduled Plan Follow up in 6 months Orders: Orders Comprehensive [place]. Panel Fast 11/04/25 E78.00 - Pure hypercholesterolemia, unspecified Lipid Panel 11/04/25 E78.00 - Pure hypercholesterolemia, unspecified TSH reflex Free T4 11/04/25 E78.00 - Pure hypercholesterolemia, unspecified UA CC w/rflx Micro + Cult 11/04/25 R30.0 - Dysuria Complete Blood Count Auto Diff 11/04/25 D64.9 - Anemia, unspecified Vitamin D 25-OH Total 11/04/25 E55.9 - Vitamin D deficiency, unspecified Urine Cytology 11/04/25 R31.1 - Benign essential microscopic hematuria
[2025-05-26 09:25] VITALS: BP 130/70; PULSE 65; O2SAT 97; BMI 25.4
--- OUTSIDE RECORDS SUMMARY | 2025-05-26 10:37 | XMS_ITS | Data Portability ---
Author Organization [place] [facility] Freda Wagner [address] [place] Address [address] [place] [address] Assessment Encounter Date Assessment Date Assessment LastModified [...] view 2022 023 [email or web address] 2 [facility], [address], [place] [address], [place], [address], 11:26:20 Medication Orders Kenalog 40 mg/mL suspension for injection [address] [facility]/[facility]armacy [facility][id number], [address] [place], [address], 3 10:54:44 lidocaine (PF) 10 mg/mL (1 %) injection solution 2022 023 [id number], [address] [place], [address], 3 10:54:44 Patient TargetsNo targets recorded. Patient [...] Time Tear of medial meniscus of knee 813389997 Active 2020 Traumatic tear of medial meniscus of knee, right, initial encounter Not Available [facility] 5 23:52:45 Instabili ty of joint of right knee 56891292062 Active 2020 Recurrent right knee instabili ty Not Available [facility] 5 23:52:45 Arthritis of right knee joint 81868798298 90253 Active 2020 Arthritis of knee, right Not Available [facility] 5 23:52:44 Osteoarth ritis of right knee joint 30350252342 9100 Active 2022 PILI DIMAS PA-C [address], [place], [address] , [place] - [facility], P 3 07:47:44 Problem Notes None recorded. Procedures Surgical History Date Name Laterality Status Provider Name and Address Organization Details Recorded Time 3 Knee Joint/Bursa Asp & Inj completed PILI DIMAS PA-C [address], [place], [address], [place] [facility], P 02/10/2023 10:55:32 8 excision of tumor of liver completed [facility] - [facility], 02/10/2023 13:49:44 8 hernia repair [facility]10[facility]23 13:49:12 Imaging Results None recorded. [...] Updated DateTime 02/10/2023 175.26 cm 24.4 kg/m2 16014.74 g Mary Duarte [place] - [facility], [facility] 02/10/2023 11:23:36 Social History Question Answer Notes LastModified by [employer] Details LastModified Time Tobacco Smoking Status Former Smoker Mary Duarte null, [place] - [facility], [facility] 02/10/2023 13:36:41 When Did You Quit Smoking? 17+yearssinc elastcigaret te Information not available 02/10/2023 Sex: Unknown Functional Status Question Answer Note LastModified by [employer] Details LastModified Time How many times per [...] IMO Codes Diagnosis Note JUVENCIO ARAUJO [address] [address] [place] [address] 02/10/2023 10:27:14 02/10/2023 11:26:20 Pain of right knee joint 3187276160 97892 M25.561 Osteoarthr itis of right knee joint 3237532757 78069 M17.11 Health Concerns Section Related Observation LastModified by Organization Detai ls LastModified Time None Recorded Concern Status LastModified by Organization Details LastModified Time None Recorded Advance Directives Directive None Recorded Payers Insurance Date Sequence Insurance Name Policy Number Policy Galvan Covered Member ID Galvan Member ID Guarantor Name 02/10/2023 2 [place] 113 Mya Benedict Fátima [id number] Eduar Shine 02/16/2023 2 [place] Mya Benedict Fátima [id number] Eduar Shine 02/06/2023 1 [place] [employer] Eduar Saldaña Fátima [id number] Eduar Shine Notes Date Note Type [...] for evaluation treatment. PILI DIMAS PA-C [address] [facility] [address], [place], [address], [place] [facility] [place] [facility] 02/10/2023 10:56:04
--- OUTSIDE RECORDS SUMMARY | 2025-05-26 10:37 | XMS_ITS | Clinical Summary ---
Author Organization [facility] Address [address] [place] [address] Care Team Providers Care Motion Picture Actor Name Role Phone Too Mcgee MD Primary Care Provider [phone] Allergies No known active allergies Medications Medication Sig Dispensed Refills Start Date End Date Status atorvastatin (LIPITOR) tablet 40 mg 0 09/20/2020 Active latanoprost (XALATAN) 0.005 % ophthalmic solution 0 08/30/2020 Active [place]-3 Fatty Acids (Fish Oil) 1000 MG CAPS [...] age to complete this topic Care Teams Motion Picture Actor Relationship Specialty Start Date End Date Too Mcgee MD [address] [place] [address] Dr Tressa [place] [id number] PCP - General Internal Medicine 11/22/20
== END 2025-05-26 09:56 | disposition home or self-care (01) ==
LOC: HO.HMCH 09:22
PROVIDERS: PCP Internal Medicine; Visit Provider Internal Medicine
DX: E78.00 Pure hypercholesterolemia, unspecified (principal); I49.9 Cardiac arrhythmia, unspecified; D64.9 Anemia, unspecified; I95.1 Orthostatic hypotension; M51.369 Other intervertebral disc degeneration, lumbar region without mention of lumbar back pain or lower extremity pain; K59.00 Constipation, unspecified; R31.1 Benign essential microscopic hematuria; H40.9 Unspecified glaucoma

== ENCOUNTER → 2025-05-26 09:21 | Outpatient (BNVA) | payer MEDICARE, BC, SELFPAY | PROVIDERS: PCP Internal Medicine; Visit Provider Internal Medicine | DX: E78.00 Pure hypercholesterolemia, unspecified (principal); I49.9 Cardiac arrhythmia, unspecified; D64.9 Anemia, unspecified; I95.1 Orthostatic hypotension; M51.369 Other intervertebral disc degeneration, lumbar region without mention of lumbar back pain or lower extremity pain; K59.00 Constipation, unspecified; R31.1 Benign essential microscopic hematuria; H40.9 Unspecified glaucoma | CPT/HCPCS: 96127; 99212 ==